=== PATIENT | female | born 1940 | race Caucasian/White ===

== ENCOUNTER 2017-03-31 09:25 | Inpatient (IN) | payer MEDICARE ==
[~2017-03-31] VITALS: Ht 162.6 cm; Wt 67.2 kg
[~2017-03-31 09:25] MED LIST: ALPR.5T PO; DILT180C PO; FLUO40CA PO; HYDR-3720 PO; RLX60T PO; WRF1T PO
[2017-03-31 12:00] VITALS: BP 110/71
[2017-03-31] MEDS ORDERED: FLUO40CA PO (14:11)
[2017-03-31] MEDS ORDERED: GABA-488 PO (14:11)
[2017-03-31] MEDS ORDERED: DILT180C54 PO (14:11)
[2017-03-31] MEDS ORDERED: ALPRAZolam 0.5 MG (XANAX) TAB PO PRN (14:15)
--- NOTE | 2017-03-31 14:22 | PM&R Post Admission Assessment ---
Post Admission Physician Asses The preadmission screen agrees with the post admission assessment that the patient is a good candidate for inpatient rehabilitation. The patient will have a comprehensive program of inpatient rehabilitation with a goal of maximizing level of functional independence prior to discharge home with SO. The patient will have PT/OT ninety minutes per day, each discipline, five days a week for gait, strengthening, conditioning, balance, ADLs, any patient/family/caregiver training as necessary. Speech therapy to do cognitive assessment and treat as indicated. Rehabilitation nursing to assist with bowel, bladder, skin, wound care, medication administration, pain management. Tutor to assist with discharge planning, community reentry. SCD's for DVT prophylaxis. She appears to be well motivated to participate in three hours of therapy a day. She should be able to tolerate three hours of therapy a day from a medical and surgical standpoint. She should benefit from the three hours of therapy a day. She has a reasonable discharge plan, reasonable discharge rehabilitation goals and a supportive family. She has various comorbidities that need to be closely monitored with medications and treatments adjusted on a daily basis as needed. These include: ongoing wound care A FIB Hypokalemia Barriers to discharge for this patient who had been independent prior to this are for her to be modified independent to supervision for ADLs and mobility skills prior to discharge home with SO, so as to lessen the burden of the caregivers. Risks for this patient include: 1. Fall 2. Fracture 3. DVT 4. Pulmonary embolism 5. Wound infection 6. Skin breakdown 7. Contractures 8. Poorly controlled pain 9. Urinary retention 10. UTI 11. Respiratory infection 12. Aspiration 13. recurrent A FIB Estimated Length of Stay: 17 days Prognosis: Rehab prognosis appears good for goal of discharge home with SO modified independent to supervision for ADLs and mobility skills. ARLEEN SIMON MD Mar 31, 2017 14:22
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
[2017-03-31] MEDS ORDERED: OMG1KC PO (14:48)
[2017-03-31] MEDS ORDERED: CALCIUM CARB/VIT D3 (14:48)
[2017-03-31] MEDS ORDERED: MULT-35 PO (14:48)
[2017-03-31] MEDS ORDERED: ALPR0.5T7 PO (14:53)
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
--- NOTE | 2017-03-31 15:56 | Physical Therapy Daily Note ---
PT Daily Note-Current Subjective Pt. agrees to Rx. States she is fatigued but happy to be in rehab. States she is worried about her open wounds etc. Pain Numeric Pain Scale: 4 Location: Posterior, Left Location Body Site: Chest (ribs) Pain Description: Inspirational Mental Status Patient Orientation: Normal For Age Attachments: Other-See Comments (back brace and wound vacc) Transfers Functional [place] Measure 0=Not Assessed/NA 4=Minimal Assistance 1=Total Assistance 5=Supervision or Setup 2=Maximal Assistance 6=Modified [place] 3=Moderate Assistance 7=Complete IndependenceIRFPAI Quality Coding Scale 6 Independent with activity with or without an assistive device 5 Patient requires set up or clean up by helper. Patient completes activity by themselves 4 Supervision or touching assist (CGA). [place] provide cues , steadying assist 3 The helper provides less than half the effort to complete the activity 2 The helper provides more than half the effort to complete the activity 1 Dependent. The helper does all the effort to complete an activity 7 Patient refused to complete or attempt activity 9 The patient did not perform the activity before the current illness or injury 88 Not attempted due to Medical conditions or safety concerns Transfers (B, C, W/C) (FIM): 4 Scootin Rollin Supine to/from Sit: 4 Sit to/from Stand: 5 needed min to CGA for LEs in to bed Weight Bearing Weight Bearing/Tolerated Weight Bearing/Tolerated Gait Training Does the Patient Walk?: Yes Gait (FIM): 5 Distance (FIM): 3=150 ft Gait Level of Assist: 5 Gait Persons Needed: 1 Gait Assistive Device: FWW low, fatigued, stopped standing break x2 Exercises Supine Ex: Ankle pumps, Quad Set, Rolling, Heel Slides, Hip abd/add Supine Reps: 15 NuStep Minutes: 20 NuStep Workload: 4 Treatments leg presses on Nustep x 12. Toileted for BM . Pt. several times cleansing herself after but requests assist to make sure she was throrough and for application of barrier cream.. Pt. managed pants up and down very slowly but did so indep. pt. stood at sink for handwashing SBA. Assessment Current Status: Good Progress Pain in ribs limits gait and function PT Short Term Goals Short Term Goals Time Frame: Apr 07, 2017 Transfers (B,C,W/C) (FIM): 5 Distance (FIM): 3=150 ft Gait Level of Assist: 5 Gait Assistive Device: FWW Wheelchair Distance: 150 Stairs (FIM): 4 # of Steps: 12 Stairs Level of Assist: 5 PT Long-Term Goals Long-Term Goals PT Interior Design Professor Goals Time Frame: Apr 21, 2017 Transfers (B,C,W/C) (FIM): 6 Sit to Lying (QC): 6 Lying-Sitting on Side/Bed(QC): 6 Sit to Stand (QC): 6 Rollin Roll Left to Right (QC): 6 Chair/Mdf-ry-Jrywt Xfer(QC): 6 Car Transfer (QC): 6 Does the Patient Walk: Yes Gait (FIM): 6 Gait distance (FIM): 3=150 ft Distance: 300 Walk 10 feet (QC): 6 Walk 10ft-Uneven Surface(QC): 6 Walk 50ft with 2 Turns (QC): 6 Walk 150 ft (QC): 6 Gait Level of Assist: 6 Gait Assistive Device: Cane Single Point Stairs (FIM): 6 # of Steps: 15 1 Step (curb) (QC): 6 4 Steps (QC): 6 12 Steps (QC): 6 Stairs Level Of Assist: 6 Picking up an Object (QC): 6 PT Plan Treatment/Plan Treatment Plan: Continue Plan of Care Treatment Plan: Bed Mobility, Education, Functional Activity [place], Functional Strength, Group Therapy, Gait, Safety, Therapeutic Exercise, Transfers Treatment Duration: Apr 21, 2017 Frequency: At least 5 of 7 days/Wk (IRF) Estimated Hrs Per Day: 1.5 hours per day Patient and/or Family Agrees t: Yes Safety Risks/Education Patient Education: Gait Training, Transfer Techniques, Correct Positioning, Disease Process, Safety Issues Teaching Recipient: Patient Teaching Methods: Demonstration, Discussion Response to Teaching: Verbalize Understanding, Return Demonstration, Reinforcement Needed sit to stand instruction for safety and efficiency using UEs to push etc. BSC placed over toilet Time/GCodes Time In: 1500 Time Out: 1550 Total Billed Treatment Time: 50 Total Billed Treatment 1,EX20m,FA30m G Codes Necessary: RUDY Andrews ANDROID ARCHITECT Mar 31, 2017 15:56
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
[2017-03-31] MEDS: oxyCODONE/APAP 5/325MG (PERCOCET 5) TABLET PO PRN (16:54)
[2017-03-31] MEDS: OMEGA 3 (FISH OIL) 1000 MG CAP PO SCH (16:54)
[2017-03-31 19:06] VITALS: BP 118/69
[2017-03-31] MEDS: GABAPENTIN 300 MG (NEURONTIN) CAP PO SCH (20:31)
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
[2017-03-31] MEDS ORDERED: LIDOCAINE 1% INJ 20 ML (XYLOCAINE) VIAL TOP SCH (22:45)
[2017-04-01 05:01] VITALS: BP 136/74
[2017-04-01] MEDS: OMEGA 3 (FISH OIL) 1000 MG CAP PO SCH ×2 (07:57→17:44)
[2017-04-01] MEDS: CALCIUM CARB + VIT D 600 MG (CALCARB + D) TAB PO SCH (07:57)
[2017-04-01] MEDS: MULTIVIT W/MINERALS TAB (THERAGRAN M) PO SCH (07:57)
[2017-04-01] MEDS: GABAPENTIN 300 MG (NEURONTIN) CAP PO SCH ×2 (08:02→20:01)
[2017-04-01] MEDS: FLUoxetine HCL 20 MG (PROzac) CAP PO SCH (08:02)
[2017-04-01] MEDS: DILTIAZEM 180 MG (CARDIZEM CD) CAP PO SCH (08:04)
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
--- NOTE | 2017-04-01 11:31 | Physical Therapy Daily Note ---
PT Daily Note-Current Subjective Pt denies pain while stationary. Pt does experience pain during transition. Pt does not rate pain. Pt agreeable and "happy to be mobile again". Mental Status Patient Orientation: Person, Place, Situation wound vacc Transfers Functional New Site Measure 0=Not Assessed/NA 4=Minimal Assistance 1=Total Assistance 5=Supervision or Setup 2=Maximal Assistance 6=Modified New Site 3=Moderate Assistance 7=Complete IndependenceIRFPAI Quality Coding Scale 6 Independent with activity with or without an assistive device 5 Patient requires set up or clean up by helper. Patient completes activity by themselves 4 Supervision or touching assist (CGA). [place] provide cues , steadying assist 3 The helper provides less than half the effort to complete the activity 2 The helper provides more than half the effort to complete the activity 1 Dependent. The helper does all the effort to complete an activity 7 Patient refused to complete or attempt activity 9 The patient did not perform the activity before the current illness or injury 88 Not attempted due to Medical conditions or safety concerns Weight Bearing Weight Bearing/Tolerated Weight Bearing/Tolerated Treatments Pt in bed, seen for LE strengthening in supine: AP, QS, GS, heel slide, hip abd , SAQ, x 20 each Pt transferred to EOB, mod (I). Donned lumbo/thoracic brace with assist. SPT bed->W/c, Pt practiced w/c mobility x 300ft. Pt then amb 300ft with FWW at slow steady speed with CGA. Pt back to room seated in w/c with call light and all needs met. Assessment Current Status: Good Progress Mobility slow but mod (I). Pt showing some difficulty with (R) LE advancement, requiring vc's to clear toe. Pt back to room resting in W/c with all needs met post therapy. PT Short Term Goals Short Term Goals Time Frame: Apr 07, 2017 Transfers (B,C,W/C) (FIM): 5 Distance (FIM): 3=150 ft Gait Level of Assist: 5 Gait Assistive Device: FWW Wheelchair Distance: 150 Stairs (FIM): 4 # of Steps: 12 Stairs Level of Assist: 5 PT Technology Analyst Goals Prison Goals PT Prison Goals Time Frame: Apr 21, 2017 Transfers (B,C,W/C) (FIM): 6 Sit to Lying (QC): 6 Lying-Sitting on Side/Bed(QC): 6 Sit to Stand (QC): 6 Rollin Roll Left to Right (QC): 6 Chair/Gea-pq-Zvshl Xfer(QC): 6 Car Transfer (QC): 6 Does the Patient Walk: Yes Gait (FIM): 6 Gait distance (FIM): 3=150 ft Distance: 300 Walk 10 feet (QC): 6 Walk 10ft-Uneven Surface(QC): 6 Walk 50ft with 2 Turns (QC): 6 Walk 150 ft (QC): 6 Gait Level of Assist: 6 Gait Assistive Device: Cane Single Point Stairs (FIM): 6 # of Steps: 15 1 Step (curb) (QC): 6 4 Steps (QC): 6 12 Steps (QC): 6 Stairs Level Of Assist: 6 Picking up an Object (QC): 6 PT Plan Treatment/Plan Treatment Plan: Continue Plan of Care Treatment Plan: Bed Mobility, Education, Functional Activity [place], Functional Strength, Group Therapy, Gait, Safety, Therapeutic Exercise, Transfers Treatment Duration: Apr 21, 2017 Frequency: At least 5 of 7 days/Wk (IRF) Estimated Hrs Per Day: 1.5 hours per day Patient and/or Family Agrees t: Yes Time/GCodes Time In: 1000 Time Out: 1100 Total Billed Treatment Time: 60 Total Billed Treatment 1, ther ex 30min, W/c mobility 15min, gait 15 min TOM KASPER CPTA Apr 01, 2017 11:31
--- NOTE | 2017-04-01 12:00 | Occupational Ther Daily Note ---
OT Current Status-Daily Note Subjective Pt in bed, agrees to treatment. Pt reports 7/10 abdominal and rib pain. Mental Status/Objective Functional [place] Measure 0=Not Assessed/NA 4=Minimal Assistance 1=Total Assistance 5=Supervision or Setup 2=Maximal Assistance 6=Modified [place] 3=Moderate Assistance 7=Complete [place] Attachments: Other-See Comments (wound vac) ADL-Treatment Pt declined sponge bath today, but would like to get dressed. Supine to sit with SBA using log rolling technique. Pt donned pullover shirt with SBA. Don lumbar brace with assist. Pt unable to reach feet for LE dressing secondary to back precautions. Pt instructed in use of adaptive equipment for LE dressing. Pt used ostomy care nurse to start underwear and pants over feet. Pt then able to stand with CGA for pant hike. Pt required assist to don shoes, states daughter will be bringing her some slip on shoes. Increased time for dressing tasks. Sit to stand with CGA. Gait to restroom with FWW and slow pace. Grooming tasks completed standing at sink. Pt brushed teeth, combed hair, and washed face with SBA. Pt requires occasional rest breaks during standing tasks secondary to fatigue. Pt returned to chair, assisted pt to order breakfast. Pt sitting in chair with needs met after session, spouse present. Functional [place] Measure 0=Not Assessed/NA 4=Minimal Assistance 1=Total Assistance 5=Supervision or Setup 2=Maximal Assistance 6=Modified [place] 3=Moderate Assistance 7=Complete IndependenceIRFPAI Quality Coding Scale 6 Independent with activity with or without an assistive device 5 Patient requires set up or clean up by helper. Patient completes activity by themselves 4 Supervision or touching assist (CGA). [place] provide cues , steadying assist 3 The helper provides less than half the effort to complete the activity 2 The helper provides more than half the effort to complete the activity 1 Dependent. The helper does all the effort to complete an activity 7 Patient refused to complete or attempt activity 9 The patient did not perform the activity before the current illness or injury 88 Not attempted due to Medical conditions or safety concerns Grooming (FIM): 5 Oral Hygiene (QC): 4 Upper Body (FIM): 4 Upper Body Dressing (QC): 4 Lower Body Dressing (FIM): 3 Lower Body Dressing (QC): 3 On/Off Footwear (QC): 3 Education OT Patient Education: Modified ADL techniques Teaching Recipient: Patient Teaching Methods: Discussion Response to Teaching: Verbalize Understanding OT Short Term Goals Short Term Goals Time Frame: Apr 07, 2017 Upper Body Dressing(FIM): 5 Lower Body Dressing(FIM): 4 Toileting(FIM): 5 Transfers (B,C,W/C) (FIM): 5 Additional Short Term Goals: 1-Demonstrate ADL Tasks, 2-Verbalize Understanding , 3-ImproveStrength/[place] 1=Demonstrate adherence to instructed precautions during ADL tasks. 2=Patient will verbalize/demonstrate understanding of assistive devices/ modifications for ADL. 3=Patient will improve strength/tolerance for activity to enable patient to perform ADL's. OT Care Home Goals Care Home Goals Time Frame: Apr 21, 2017 Eating (FIM): 6 Eating (QC): 6 Groomin Oral Hygiene (QC): 6 Bathing(FIM): 5 Shower/Bathe Self (QC): 5 Upper Body Dressing(FIM): 6 Upper Body Dressing (QC): 6 Lower Body Dressing(FIM): 6 Lower Body Dressing (QC): 6 On/Off Footwear (QC): 6 Toileting(FIM): 6 Toilet/Commode Transfer(FIM): 6 Toilet/Commode Transfer (QC): 6 Additional Goals: 1-Demonstrate ADL Tasks, 2-Verbalize Understanding, 3- ImproveStrength/[place] 1=Demonstrate adherence to instructed precautions during ADL tasks. 2=Patient will verbalize/demonstrate understanding of assistive devices/ modifications for ADL. 3=Patient will improve strength/tolerance for activity to enable patient to perform ADL's. OT Education/Plan Discharge Recommendations Plan/Recommendations: Continue POC Treatment Plan/Plan of Care Patient would benefit from OT for education, treatment and training to promote independence in ADL's, mobility, safety and/or upper extremity function for ADL' s. Plan of Care: ADL Retraining, Functional Mobility, Group Exercise/Act as Ind, UE Funct Exercise/Act Treatment Duration: Apr 21, 2017 Frequency: At least 5 of 7 days/Wk (IRF) Estimated Hrs Per Day: 1.5 hours per day Agreement: Yes Rehab Potential: Good Time/GCodes Start Time: 08:00 Stop Time: 09:00 Total Time Billed (hr/min): 60 Billed Treatment Time 1 visit, ADLx4(60minutes) JUSTIN GILL OT Apr 01, 2017 12:00
--- NOTE | 2017-04-01 13:10 | Therapy Group Daily Note ---
Therapy Daily Group Note Patient Education Topic Other List Below (handwashing) Exercises LE Seated Exercise, UE Exercise Other/Notes Pt transported via w/c to OT/PT group. OT/PT group consisted of introductions ( name and favorite thanksgiving food), socialization, education on handwashing, seated UE/LE exercises, and Thanksgiving Jeopardy. Pt introduced self appropriately and contributed to conversations. Pt was attentive in activities and was able to answer question. Pt was able to complete exercises well and demonstrated good AROM. Pt sat at sink to wash hands prior to lunch. Pt transported via w/c to [facility] to participate in thanksgiving lunch, family present. After group, pt sitting in w/c with call light/phone in reach. All needs met in room. Start Time: 11:30 Stop Time: 12:30 Total Billed Treatment Time: 60 Total Billed Treatment 1-GRP ITALIA PETERSON Apr 01, 2017 13:10
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
[2017-04-01] MEDS: oxyCODONE/APAP 5/325MG (PERCOCET 5) TABLET PO PRN ×2 (13:38→19:07)
[2017-04-01 18:24] VITALS: BP 126/70
[2017-04-02 05:00] VITALS: BP 131/69
[2017-04-02] MEDS: oxyCODONE/APAP 5/325MG (PERCOCET 5) TABLET PO PRN ×3 (05:01→20:23)
[2017-04-02] MEDS: OMEGA 3 (FISH OIL) 1000 MG CAP PO SCH ×2 (06:09→17:36)
[2017-04-02] MEDS: MULTIVIT W/MINERALS TAB (THERAGRAN M) PO SCH (06:10)
[2017-04-02] MEDS: CALCIUM CARB + VIT D 600 MG (CALCARB + D) TAB PO SCH (06:14)
[2017-04-02] MEDS: FLUoxetine HCL 20 MG (PROzac) CAP PO SCH (08:01)
[2017-04-02] MEDS: GABAPENTIN 300 MG (NEURONTIN) CAP PO SCH ×2 (08:01→21:23)
[2017-04-02] MEDS: DILTIAZEM 180 MG (CARDIZEM CD) CAP PO SCH (08:01)
--- NOTE | 2017-04-02 09:07 | Physical Therapy Daily Note ---
PT Daily Note-Current Subjective Pt. states she feels she is making progress every day and is anxious to have the wound vacc off. Pain Numeric Pain Scale: 0-No Pain Mental Status Patient Orientation: Normal For Age Attachments: Other-See Comments (wound vacc and Steward back brace) Transfers Functional [place] Measure 0=Not Assessed/NA 4=Minimal Assistance 1=Total Assistance 5=Supervision or Setup 2=Maximal Assistance 6=Modified [place] 3=Moderate Assistance 7=Complete IndependenceIRFPAI Quality Coding Scale 6 Independent with activity with or without an assistive device 5 Patient requires set up or clean up by helper. Patient completes activity by themselves 4 Supervision or touching assist (CGA). [place] provide cues , steadying assist 3 The helper provides less than half the effort to complete the activity 2 The helper provides more than half the effort to complete the activity 1 Dependent. The helper does all the effort to complete an activity 7 Patient refused to complete or attempt activity 9 The patient did not perform the activity before the current illness or injury 88 Not attempted due to Medical conditions or safety concerns Transfers (B, C, W/C) (FIM): 5 Scootin Rollin Supine to/from Sit: 5 Sit to/from Stand: 6 reviewed log roll etc Weight Bearing Weight Bearing/Tolerated Weight Bearing/Tolerated Gait Training Does the Patient Walk?: Yes Gait (FIM): 5 Distance (FIM): 3=150 ft (200x2) Gait Level of Assist: 5 Gait Persons Needed: 1 Gait Assistive Device: FWW assist mainly for wound vacc, slow, flexed posture Wheelchair Training Does the Pt Use a Wheelchair?: No Stair Training Stair Training: Handrails/: 2 handrails Stairs (FIM): 5 #of Steps: 4 Stairs: Pattern: Step to Level of Assist: 5 household exception Balance Special Test Comments unsafe Exercises Seated Therapy Exercises: Ankle pumps, Sit to stand, Long arc quads, Hip flexion Seated Reps: 12 NuStep Minutes: 8 NuStep Workload: 4 Assessment Current Status: Good Progress PT Short Term Goals Short Term Goals Time Frame: Apr 07, 2017 Transfers (B,C,W/C) (FIM): 5 Distance (FIM): 3=150 ft Gait Level of Assist: 5 Gait Assistive Device: FWW Wheelchair Distance: 150 Stairs (FIM): 4 # of Steps: 12 Stairs Level of Assist: 5 PT Halfway Goals Naval Engineer Goals PT Halfway Goals Time Frame: Apr 21, 2017 Transfers (B,C,W/C) (FIM): 6 Sit to Lying (QC): 6 Lying-Sitting on Side/Bed(QC): 6 Sit to Stand (QC): 6 Rollin Roll Left to Right (QC): 6 Chair/Ylc-ww-Hngak Xfer(QC): 6 Car Transfer (QC): 6 Does the Patient Walk: Yes Gait (FIM): 6 Gait distance (FIM): 3=150 ft Distance: 300 Walk 10 feet (QC): 6 Walk 10ft-Uneven Surface(QC): 6 Walk 50ft with 2 Turns (QC): 6 Walk 150 ft (QC): 6 Gait Level of Assist: 6 Gait Assistive Device: Cane Single Point Stairs (FIM): 6 # of Steps: 15 1 Step (curb) (QC): 6 4 Steps (QC): 6 12 Steps (QC): 6 Stairs Level Of Assist: 6 Picking up an Object (QC): 6 PT Plan Treatment/Plan Treatment Plan: Continue Plan of Care Treatment Plan: Bed Mobility, Education, Functional Activity [place], Functional Strength, Group Therapy, Gait, Safety, Therapeutic Exercise, Transfers Treatment Duration: Apr 21, 2017 Frequency: At least 5 of 7 days/Wk (IRF) Estimated Hrs Per Day: 1.5 hours per day Patient and/or Family Agrees t: Yes Safety Risks/Education Patient Education: Gait Training, Transfer Techniques, Steps Teaching Recipient: Patient Teaching Methods: Demonstration, Discussion Response to Teaching: Verbalize Understanding, Return Demonstration, Reinforcement Needed min assist to fabiana back brace Discharge Recommendations Plan 1,EX15m,FA25m,GT20m Time/GCodes Time In: 800 Time Out: 900 Total Billed Treatment Time: 60 Total Billed Treatment 1,EX15m,FA25m,GT20m G Codes Necessary: RUDY Andrews [employer]ED BROKER Apr 02, 2017 09:07
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
--- NOTE | 2017-04-02 11:14 | Physical Therapy Daily Note ---
PT Daily Note-Current Subjective No issues voiced on arrival. Transfers Functional [place] Measure 0=Not Assessed/NA 4=Minimal Assistance 1=Total Assistance 5=Supervision or Setup 2=Maximal Assistance 6=Modified [place] 3=Moderate Assistance 7=Complete IndependenceIRFPAI Quality Coding Scale 6 Independent with activity with or without an assistive device 5 Patient requires set up or clean up by helper. Patient completes activity by themselves 4 Supervision or touching assist (CGA). [place] provide cues , steadying assist 3 The helper provides less than half the effort to complete the activity 2 The helper provides more than half the effort to complete the activity 1 Dependent. The helper does all the effort to complete an activity 7 Patient refused to complete or attempt activity 9 The patient did not perform the activity before the current illness or injury 88 Not attempted due to Medical conditions or safety concerns Transfers (B, C, W/C) (FIM): 6 Sit to/from Stand: 6 Weight Bearing Weight Bearing/Tolerated Weight Bearing/Tolerated Gait Training Does the Patient Walk?: Yes Gait (FIM): 4 Distance (FIM): 3=150 ft Distance: 300ft Gait Level of Assist: 4 Gait Assistive Device: FWW Exercises Seated Therapy Exercises: LE Protocol Seated Reps: 20 NuStep Minutes: 7 NuStep Workload: 5 Assessment Current Status: Good Progress Pt had one LOB episode when making a (L) turn. Pt was aware that she was losing balance, but needed contact assist to remain standing. PT Short Term Goals Short Term Goals Time Frame: Apr 07, 2017 Transfers (B,C,W/C) (FIM): 5 Distance (FIM): 3=150 ft Gait Level of Assist: 5 Gait Assistive Device: FWW Wheelchair Distance: 150 Stairs (FIM): 4 # of Steps: 12 Stairs Level of Assist: 5 PT Administrative Office Specialist Goals Penitentiary Goals PT Penitentiary Goals Time Frame: Apr 21, 2017 Transfers (B,C,W/C) (FIM): 6 Sit to Lying (QC): 6 Lying-Sitting on Side/Bed(QC): 6 Sit to Stand (QC): 6 Rollin Roll Left to Right (QC): 6 Chair/Ihx-dx-Dlalj Xfer(QC): 6 Car Transfer (QC): 6 Does the Patient Walk: Yes Gait (FIM): 6 Gait distance (FIM): 3=150 ft Distance: 300 Walk 10 feet (QC): 6 Walk 10ft-Uneven Surface(QC): 6 Walk 50ft with 2 Turns (QC): 6 Walk 150 ft (QC): 6 Gait Level of Assist: 6 Gait Assistive Device: Cane Single Point Stairs (FIM): 6 # of Steps: 15 1 Step (curb) (QC): 6 4 Steps (QC): 6 12 Steps (QC): 6 Stairs Level Of Assist: 6 Picking up an Object (QC): 6 PT Plan Treatment/Plan Treatment Plan: Continue Plan of Care Treatment Plan: Bed Mobility, Education, Functional Activity [place], Functional Strength, Group Therapy, Gait, Safety, Therapeutic Exercise, Transfers Treatment Duration: Apr 21, 2017 Frequency: At least 5 of 7 days/Wk (IRF) Estimated Hrs Per Day: 1.5 hours per day Patient and/or Family Agrees t: Yes Time/GCodes Time In: 1036 Time Out: 1107 Total Billed Treatment Time: 31 Total Billed Treatment 1, gt 20, ex 11 VINNIE KOCH PT Apr 02, 2017 11:14
--- NOTE | 2017-04-02 12:41 | Occupational Ther Daily Note ---
OT Current Status-Daily Note Subjective Pt sitting in w/c, agrees to treatment. Pt reports 2/10 abdominal and rib pain. Mental Status/Objective Functional [place] Measure 0=Not Assessed/NA 4=Minimal Assistance 1=Total Assistance 5=Supervision or Setup 2=Maximal Assistance 6=Modified [place] 3=Moderate Assistance 7=Complete [place] Attachments: Other-See Comments (wound vac) ADL-Treatment Pt would like a sponge bath today. Pt able to bathe upper body with set up. Donned pullover shirt with set up. Pt requires assist to don LSO secondary to unable to manage velcro straps. Pt able to wash bilateral upper legs and kristina area. Stood with assist to wash buttocks. Pt used long handled sponge to wash lower legs and feet. Reviewed use of adaptive equipment for LE dressing. Pt used improvement leader to start underwear and pants over feet. Sit to stand with SBA for pant hike. Pt requires minimal assistance to pull pants up in the back. Don bilateral socks with set up using sock aid. Gait to restroom with FWW. Pt stood at sink to brush teeth and comb hair with SBA. Transfer to toilet with SBA using grab bars for safety. Pt requires assist for toileting hygiene after BM. Washed hands at sink with SBA. Pt transferred to w/c with SBA using FWW. Sitting in w/c with needs met after session. Functional [place] Measure 0=Not Assessed/NA 4=Minimal Assistance 1=Total Assistance 5=Supervision or Setup 2=Maximal Assistance 6=Modified [place] 3=Moderate Assistance 7=Complete IndependenceIRFPAI Quality Coding Scale 6 Independent with activity with or without an assistive device 5 Patient requires set up or clean up by helper. Patient completes activity by themselves 4 Supervision or touching assist (CGA). [place] provide cues , steadying assist 3 The helper provides less than half the effort to complete the activity 2 The helper provides more than half the effort to complete the activity 1 Dependent. The helper does all the effort to complete an activity 7 Patient refused to complete or attempt activity 9 The patient did not perform the activity before the current illness or injury 88 Not attempted due to Medical conditions or safety concerns Grooming (FIM): 5 Oral Hygiene (QC): 4 Bathing (FIM): 4 Shower/Bathe Self (QC): 3 Upper Body (FIM): 4 Lower Body Dressing (FIM): 4 Lower Body Dressing (QC): 3 On/Off Footwear (QC): 5 Toileting (FIM): 3 Toileting Hygiene (QC): 3 Toilet/Commode Transfer (FIM): 5 Education OT Patient Education: Modified ADL techniques Teaching Recipient: Patient Teaching Methods: Discussion Response to Teaching: Return Demonstration OT Short Term Goals Short Term Goals Time Frame: Apr 07, 2017 Upper Body Dressing(FIM): 5 Lower Body Dressing(FIM): 4 Toileting(FIM): 5 Transfers (B,C,W/C) (FIM): 5 Additional Short Term Goals: 1-Demonstrate ADL Tasks, 2-Verbalize Understanding , 3-ImproveStrength/[place] 1=Demonstrate adherence to instructed precautions during ADL tasks. 2=Patient will verbalize/demonstrate understanding of assistive devices/ modifications for ADL. 3=Patient will improve strength/tolerance for activity to enable patient to perform ADL's. OT Fpc Goals Business Objects Analyst Goals Time Frame: Apr 21, 2017 Eating (FIM): 6 Eating (QC): 6 Groomin Oral Hygiene (QC): 6 Bathing(FIM): 5 Shower/Bathe Self (QC): 5 Upper Body Dressing(FIM): 6 Upper Body Dressing (QC): 6 Lower Body Dressing(FIM): 6 Lower Body Dressing (QC): 6 On/Off Footwear (QC): 6 Toileting(FIM): 6 Toilet/Commode Transfer(FIM): 6 Toilet/Commode Transfer (QC): 6 Additional Goals: 1-Demonstrate ADL Tasks, 2-Verbalize Understanding, 3- ImproveStrength/[place] 1=Demonstrate adherence to instructed precautions during ADL tasks. 2=Patient will verbalize/demonstrate understanding of assistive devices/ modifications for ADL. 3=Patient will improve strength/tolerance for activity to enable patient to perform ADL's. OT Education/Plan Discharge Recommendations Plan/Recommendations: Continue POC Treatment Plan/Plan of Care Patient would benefit from OT for education, treatment and training to promote independence in ADL's, mobility, safety and/or upper extremity function for ADL' s. Plan of Care: ADL Retraining, Functional Mobility, Group Exercise/Act as Ind, UE Funct Exercise/Act Treatment Duration: Apr 21, 2017 Frequency: At least 5 of 7 days/Wk (IRF) Estimated Hrs Per Day: 1.5 hours per day Agreement: Yes Rehab Potential: Good Time/GCodes Start Time: 09:00 Stop Time: 10:00 Total Time Billed (hr/min): 60 Billed Treatment Time 1 visit, ADLx4(60minutes) JUSTIN GILL OT Apr 02, 2017 12:41
--- NOTE | 2017-04-02 14:58 | Occupational Ther Daily Note ---
OT Current Status-Daily Note Subjective Pt sitting in w/c, agrees to treatment. Mental Status/Objective Functional [place] Measure 0=Not Assessed/NA 4=Minimal Assistance 1=Total Assistance 5=Supervision or Setup 2=Maximal Assistance 6=Modified [place] 3=Moderate Assistance 7=Complete [place] Attachments: Other-See Comments (wound vac) ADL-Treatment Functional [place] Measure 0=Not Assessed/NA 4=Minimal Assistance 1=Total Assistance 5=Supervision or Setup 2=Maximal Assistance 6=Modified [place] 3=Moderate Assistance 7=Complete IndependenceIRFPAI Quality Coding Scale 6 Independent with activity with or without an assistive device 5 Patient requires set up or clean up by helper. Patient completes activity by themselves 4 Supervision or touching assist (CGA). [place] provide cues , steadying assist 3 The helper provides less than half the effort to complete the activity 2 The helper provides more than half the effort to complete the activity 1 Dependent. The helper does all the effort to complete an activity 7 Patient refused to complete or attempt activity 9 The patient did not perform the activity before the current illness or injury 88 Not attempted due to Medical conditions or safety concerns Other Treatment Pt sit to stand with supervision. Gait to therapy gym with FWW, slow pace. No LOB noted. Pt completed fine motor task with nuts and bolts to increase fine motor coordination/manipulation skills. Pt able to complete task with increased time. Pt completed tabletop peg activity with bilateral UE to increase UE activity tolerance and coordination. Pt returned to room and requested to return to bed. Pt doffed brace with minimal assistance. Sit to supine with minimal assistance and cues for log rolling. Pt reports increased pain in ribs and abdomen with removal of brace, requests pain medication. RN notified. Pt in bed with needs met after session. OT Short Term Goals Short Term Goals Time Frame: Apr 07, 2017 Upper Body Dressing(FIM): 5 Lower Body Dressing(FIM): 4 Toileting(FIM): 5 Transfers (B,C,W/C) (FIM): 5 Additional Short Term Goals: 1-Demonstrate ADL Tasks, 2-Verbalize Understanding , 3-ImproveStrength/[place] 1=Demonstrate adherence to instructed precautions during ADL tasks. 2=Patient will verbalize/demonstrate understanding of assistive devices/ modifications for ADL. 3=Patient will improve strength/tolerance for activity to enable patient to perform ADL's. OT Geometry Teacher Goals Geometry Teacher Goals Time Frame: Apr 21, 2017 Eating (FIM): 6 Eating (QC): 6 Groomin Oral Hygiene (QC): 6 Bathing(FIM): 5 Shower/Bathe Self (QC): 5 Upper Body Dressing(FIM): 6 Upper Body Dressing (QC): 6 Lower Body Dressing(FIM): 6 Lower Body Dressing (QC): 6 On/Off Footwear (QC): 6 Toileting(FIM): 6 Toilet/Commode Transfer(FIM): 6 Toilet/Commode Transfer (QC): 6 Additional Goals: 1-Demonstrate ADL Tasks, 2-Verbalize Understanding, 3- ImproveStrength/[place] 1=Demonstrate adherence to instructed precautions during ADL tasks. 2=Patient will verbalize/demonstrate understanding of assistive devices/ modifications for ADL. 3=Patient will improve strength/tolerance for activity to enable patient to perform ADL's. OT Education/Plan Discharge Recommendations Plan/Recommendations: Continue POC Treatment Plan/Plan of Care Patient would benefit from OT for education, treatment and training to promote independence in ADL's, mobility, safety and/or upper extremity function for ADL' s. Plan of Care: ADL Retraining, Functional Mobility, Group Exercise/Act as Ind, UE Funct Exercise/Act Treatment Duration: Apr 21, 2017 Frequency: At least 5 of 7 days/Wk (IRF) Estimated Hrs Per Day: 1.5 hours per day Agreement: Yes Rehab Potential: Good Time/GCodes Start Time: 13:30 Stop Time: 14:00 Total Time Billed (hr/min): 30 Billed Treatment Time 1 visit, FAx2(30minutes) JUSTIN GILL OT Apr 02, 2017 14:58
[2017-04-02 18:00] VITALS: BP 120/72
[2017-04-03] MEDS: oxyCODONE/APAP 5/325MG (PERCOCET 5) TABLET PO PRN ×2 (05:12→20:45)
[2017-04-03 05:17] VITALS: BP 137/68
[2017-04-03] MEDS: OMEGA 3 (FISH OIL) 1000 MG CAP PO SCH ×2 (06:07→17:06)
[2017-04-03] MEDS: CALCIUM CARB + VIT D 600 MG (CALCARB + D) TAB PO SCH (06:07)
[2017-04-03] MEDS: MULTIVIT W/MINERALS TAB (THERAGRAN M) PO SCH (06:07)
[2017-04-03] MEDS: GABAPENTIN 300 MG (NEURONTIN) CAP PO SCH ×2 (08:48→20:45)
[2017-04-03] MEDS: DILTIAZEM 180 MG (CARDIZEM CD) CAP PO SCH (08:48)
[2017-04-03] MEDS: FLUoxetine HCL 20 MG (PROzac) CAP PO SCH (08:48)
--- NOTE | 2017-04-03 12:19 | Physical Therapy Daily Note ---
PT Daily Note-Current Subjective Pt. ready for Rx. Feels like she has made good progress Pain Numeric Pain Scale: 3 Location: Left Location Body Site: Chest (ribs) Pain Description: Ache Mental Status Patient Orientation: Normal For Age Attachments: Other-See Comments (wound vacc) Transfers Functional [place] Measure 0=Not Assessed/NA 4=Minimal Assistance 1=Total Assistance 5=Supervision or Setup 2=Maximal Assistance 6=Modified [place] 3=Moderate Assistance 7=Complete IndependenceIRFPAI Quality Coding Scale 6 Independent with activity with or without an assistive device 5 Patient requires set up or clean up by helper. Patient completes activity by themselves 4 Supervision or touching assist (CGA). [place] provide cues , steadying assist 3 The helper provides less than half the effort to complete the activity 2 The helper provides more than half the effort to complete the activity 1 Dependent. The helper does all the effort to complete an activity 7 Patient refused to complete or attempt activity 9 The patient did not perform the activity before the current illness or injury 88 Not attempted due to Medical conditions or safety concerns Transfers (B, C, W/C) (FIM): 5 Scootin Rollin Supine to/from Sit: 5 Sit to/from Stand: 6 pain in ribs as well as discomfort of brace in sidelying and supine limit laying supine Weight Bearing Weight Bearing/Tolerated Weight Bearing/Tolerated Gait Training Does the Patient Walk?: Yes Gait (FIM): 5 Distance (FIM): 3=150 ft (x2) Gait Level of Assist: 5 Gait Persons Needed: 1 Gait Assistive Device: FWW Stair Training Stair Training: Handrails/: 2 handrails Stairs (FIM): 2 #of Steps: 4 Stairs: Pattern: Step to Level of Assist: 4 Exercises NuStep Minutes: 10 NuStep Workload: 10 Assessment Current Status: Good Progress less c/o pain, increased activity PT Short Term Goals Short Term Goals Time Frame: Apr 07, 2017 Transfers (B,C,W/C) (FIM): 5 Distance (FIM): 3=150 ft Gait Level of Assist: 5 Gait Assistive Device: FWW Wheelchair Distance: 150 Stairs (FIM): 4 # of Steps: 12 Stairs Level of Assist: 5 PT Intermediate Goals Intermediate Goals PT Intermediate Goals Time Frame: Apr 21, 2017 Transfers (B,C,W/C) (FIM): 6 Sit to Lying (QC): 6 Lying-Sitting on Side/Bed(QC): 6 Sit to Stand (QC): 6 Rollin Roll Left to Right (QC): 6 Chair/Igd-vp-Iozjf Xfer(QC): 6 Car Transfer (QC): 6 Does the Patient Walk: Yes Gait (FIM): 6 Gait distance (FIM): 3=150 ft Distance: 300 Walk 10 feet (QC): 6 Walk 10ft-Uneven Surface(QC): 6 Walk 50ft with 2 Turns (QC): 6 Walk 150 ft (QC): 6 Gait Level of Assist: 6 Gait Assistive Device: Cane Single Point Stairs (FIM): 6 # of Steps: 15 1 Step (curb) (QC): 6 4 Steps (QC): 6 12 Steps (QC): 6 Stairs Level Of Assist: 6 Picking up an Object (QC): 6 PT Plan Treatment/Plan Treatment Plan: Continue Plan of Care Treatment Plan: Bed Mobility, Education, Functional Activity [place], Functional Strength, Group Therapy, Gait, Safety, Therapeutic Exercise, Transfers Treatment Duration: Apr 21, 2017 Frequency: At least 5 of 7 days/Wk (IRF) Estimated Hrs Per Day: 1.5 hours per day Patient and/or Family Agrees t: Yes Safety Risks/Education Patient Education: Gait Training, Transfer Techniques, Steps Teaching Recipient: Patient Teaching Methods: Demonstration, Discussion Response to Teaching: Verbalize Understanding, Return Demonstration, Reinforcement Needed Time/GCodes Time In: 1035 Time Out: 1105 Total Billed Treatment Time: 30 Total Billed Treatment 1,FA20,EX10 G Codes Necessary: RUDY Andrews [employer] WIRELESS MANAGER Apr 03, 2017 12:19
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
[2017-04-03 18:12] VITALS: BP 122/70
[2017-04-04 06:00] VITALS: BP 119/61
[2017-04-04] MEDS: OMEGA 3 (FISH OIL) 1000 MG CAP PO SCH ×2 (06:18→16:52)
[2017-04-04] MEDS: CALCIUM CARB + VIT D 600 MG (CALCARB + D) TAB PO SCH (06:18)
[2017-04-04] MEDS: MULTIVIT W/MINERALS TAB (THERAGRAN M) PO SCH (06:18)
[2017-04-04] MEDS: DILTIAZEM 180 MG (CARDIZEM CD) CAP PO SCH (08:49)
[2017-04-04] MEDS: GABAPENTIN 300 MG (NEURONTIN) CAP PO SCH ×2 (08:49→21:02)
[2017-04-04] MEDS: FLUoxetine HCL 20 MG (PROzac) CAP PO SCH (08:49)
[2017-04-04 17:53] VITALS: BP 124/74
[2017-04-05 04:17] VITALS: BP 135/80
[2017-04-05] MEDS: OMEGA 3 (FISH OIL) 1000 MG CAP PO SCH ×2 (06:06→17:52)
[2017-04-05] MEDS: MULTIVIT W/MINERALS TAB (THERAGRAN M) PO SCH (06:06)
[2017-04-05] MEDS: CALCIUM CARB + VIT D 600 MG (CALCARB + D) TAB PO SCH (06:06)
--- NOTE | 2017-04-05 08:59 | Physical Therapy Daily Note ---
PT Daily Note-Current Subjective Patient in bed pre tx, agrees to PT, has to use the restroom. Patient states she doesn't really have pain but has pressure on her right side in ribs and discomfort in her bottom when she sits. Appearance Patient in wheelchair at bedside post tx with nurse call, phone, tray, all needs met. Mental Status Patient Orientation: Normal For Age wound vac, TLSO Transfers Functional [place] Measure 0=Not Assessed/NA 4=Minimal Assistance 1=Total Assistance 5=Supervision or Setup 2=Maximal Assistance 6=Modified [place] 3=Moderate Assistance 7=Complete IndependenceIRFPAI Quality Coding Scale 6 Independent with activity with or without an assistive device 5 Patient requires set up or clean up by helper. Patient completes activity by themselves 4 Supervision or touching assist (CGA). [place] provide cues , steadying assist 3 The helper provides less than half the effort to complete the activity 2 The helper provides more than half the effort to complete the activity 1 Dependent. The helper does all the effort to complete an activity 7 Patient refused to complete or attempt activity 9 The patient did not perform the activity before the current illness or injury 88 Not attempted due to Medical conditions or safety concerns Transfers (B, C, W/C) (FIM): 6 Scootin Rollin Supine to/from Sit: 6 Sit to/from Stand: 6 occasional cues for hand placement Weight Bearing Weight Bearing/Tolerated Weight Bearing/Tolerated Gait Training Gait (FIM): 5 Distance: 200', 150' Gait Level of Assist: 5 Gait Persons Needed: 1 Gait Assistive Device: FWW Stair Training Stair Training: Handrails/: 2 handrails Stairs (FIM): 2 #of Steps: 8 Stairs: Pattern: Step to Level of Assist: 5 Exercises NuStep Minutes: 15 NuStep Workload: 6 Treatments bed mobility and transfers, ambulation, functional strengthening, brace don/doff , patient was toileted once Assessment Current Status: Fair Progress improving endurance PT Short Term Goals Short Term Goals Time Frame: Apr 07, 2017 Transfers (B,C,W/C) (FIM): 5 Distance (FIM): 3=150 ft Gait Level of Assist: 5 Gait Assistive Device: FWW Wheelchair Distance: 150 Stairs (FIM): 4 # of Steps: 12 Stairs Level of Assist: 5 PT Residential Goals Residential Goals PT Residential Goals Time Frame: Apr 21, 2017 Transfers (B,C,W/C) (FIM): 6 Sit to Lying (QC): 6 Lying-Sitting on Side/Bed(QC): 6 Sit to Stand (QC): 6 Rollin Roll Left to Right (QC): 6 Chair/Pyb-ae-Bohrk Xfer(QC): 6 Car Transfer (QC): 6 Does the Patient Walk: Yes Gait (FIM): 6 Gait distance (FIM): 3=150 ft Distance: 300 Walk 10 feet (QC): 6 Walk 10ft-Uneven Surface(QC): 6 Walk 50ft with 2 Turns (QC): 6 Walk 150 ft (QC): 6 Gait Level of Assist: 6 Gait Assistive Device: Cane Single Point Stairs (FIM): 6 # of Steps: 15 1 Step (curb) (QC): 6 4 Steps (QC): 6 12 Steps (QC): 6 Stairs Level Of Assist: 6 Picking up an Object (QC): 6 PT Plan Problem List Problem List: Activity Tolerance, Functional Strength, Safety, Balance, Gait, Transfer Treatment/Plan Treatment Plan: Continue Plan of Care Treatment Plan: Bed Mobility, Education, Functional Activity [place], Functional Strength, Group Therapy, Gait, Safety, Therapeutic Exercise, Transfers Treatment Duration: Apr 21, 2017 Frequency: At least 5 of 7 days/Wk (IRF) Estimated Hrs Per Day: 1.5 hours per day Patient and/or Family Agrees t: Yes Safety Risks/Education Patient Education: Gait Training, Transfer Techniques, Steps, Correct Positioning, Reviewed Don/Doff Brace, Safety Issues Teaching Recipient: Patient Teaching Methods: Demonstration, Discussion Response to Teaching: Reinforcement Needed Time/GCodes Time In: 800 Time Out: 859 Total Billed Treatment Time: 59 Total Billed Treatment 1 visit EX 15' FA 15' GT 29' JYOTSNA GORMAN PT Apr 05, 2017 08:59
[2017-04-05] MEDS: DILTIAZEM 180 MG (CARDIZEM CD) CAP PO SCH (09:17)
[2017-04-05] MEDS: GABAPENTIN 300 MG (NEURONTIN) CAP PO SCH ×2 (09:17→20:23)
[2017-04-05] MEDS: FLUoxetine HCL 20 MG (PROzac) CAP PO SCH (09:17)
[2017-04-05] MEDS: oxyCODONE/APAP 5/325MG (PERCOCET 5) TABLET PO PRN ×2 (11:23→15:41)
--- NOTE | 2017-04-05 14:20 | Occupational Ther Daily Note ---
OT Current Status-Daily Note Subjective No pain reported. Appearance Pt. sitting up in chair. Agrees to treatment. Mental Status/Objective Patient Orientation: Person, Place, Time, Situation Functional [place] Measure 0=Not Assessed/NA 4=Minimal Assistance 1=Total Assistance 5=Supervision or Setup 2=Maximal Assistance 6=Modified [place] 3=Moderate Assistance 7=Complete [place] Pt. has wound vac. Wound care nurse states it is okay for pt. to shower with incision kept dry. ADL-Treatment Functional [place] Measure 0=Not Assessed/NA 4=Minimal Assistance 1=Total Assistance 5=Supervision or Setup 2=Maximal Assistance 6=Modified [place] 3=Moderate Assistance 7=Complete IndependenceIRFPAI Quality Coding Scale 6 Independent with activity with or without an assistive device 5 Patient requires set up or clean up by helper. Patient completes activity by themselves 4 Supervision or touching assist (CGA). [place] provide cues , steadying assist 3 The helper provides less than half the effort to complete the activity 2 The helper provides more than half the effort to complete the activity 1 Dependent. The helper does all the effort to complete an activity 7 Patient refused to complete or attempt activity 9 The patient did not perform the activity before the current illness or injury 88 Not attempted due to Medical conditions or safety concerns Grooming (FIM): 5 (SBA at sink in stance to brush hair.) Bathing (FIM): 5 (SBA in shower to wash all parts. Pt. able to keep back straight and posture upright with feet brought up to lap.) Shower/Bathe Self (QC): 4 Upper Body (FIM): 4 (Pt. is able to don shirt with SBA, and brace with min assist.) Upper Body Dressing (QC): 4 Lower Body Dressing (FIM): 5 (Pt. requires SBA to doff/don socks, underwear, pants.) Lower Body Dressing (QC): 4 On/Off Footwear (QC): 4 Toileting (FIM): 5 Toileting Hygiene (QC): 4 Transfers (B, C, W/C) (FIM): 5 Toilet/Commode Transfer (FIM): 5 Toilet Transfer (QC): 5 Shower Transfer(FIM): 4 Education OT Patient Education: Correct positioning, Instructions don/doff splint/brace, Modified ADL techniques, Progress toward Goal/Update tx plan, Purpose of tx/ functional activities, Reviewed precautions, Rehab process, Transfer techniques Teaching Recipient: Patient Teaching Methods: Demonstration, Discussion Response to Teaching: Verbalize Understanding, Return Demonstration OT Short Term Goals Short Term Goals Time Frame: Apr 07, 2017 Upper Body Dressing(FIM): 5 Lower Body Dressing(FIM): 4 Toileting(FIM): 5 Transfers (B,C,W/C) (FIM): 5 Additional Short Term Goals: 1-Demonstrate ADL Tasks, 2-Verbalize Understanding , 3-ImproveStrength/[place] 1=Demonstrate adherence to instructed precautions during ADL tasks. 2=Patient will verbalize/demonstrate understanding of assistive devices/ modifications for ADL. 3=Patient will improve strength/tolerance for activity to enable patient to perform ADL's. OT Nursing Home Goals Nursing Home Goals Time Frame: Apr 21, 2017 Eating (FIM): 6 Eating (QC): 6 Groomin Oral Hygiene (QC): 6 Bathing(FIM): 5 Shower/Bathe Self (QC): 5 Upper Body Dressing(FIM): 6 Upper Body Dressing (QC): 6 Lower Body Dressing(FIM): 6 Lower Body Dressing (QC): 6 On/Off Footwear (QC): 6 Toileting(FIM): 6 Toilet/Commode Transfer(FIM): 6 Toilet/Commode Transfer (QC): 6 Additional Goals: 1-Demonstrate ADL Tasks, 2-Verbalize Understanding, 3- ImproveStrength/[place] 1=Demonstrate adherence to instructed precautions during ADL tasks. 2=Patient will verbalize/demonstrate understanding of assistive devices/ modifications for ADL. 3=Patient will improve strength/tolerance for activity to enable patient to perform ADL's. OT Education/Plan Problem List/Assessment Assessment: Decreased Activ Tolerance, Decreased UE Strength, Impaired I ADL's , Impaired Self-Care Skills Discharge Recommendations Plan/Recommendations: Continue POC Therapy D/C Recommendations: Home w/ Family Support, Occupational Therapy Home Care Target Placement Home with spouse and home health OT. Treatment Plan/Plan of Care Treatment,Training & Education: Yes Patient would benefit from OT for education, treatment and training to promote independence in ADL's, mobility, safety and/or upper extremity function for ADL' s. Plan of Care: ADL Retraining, Functional Mobility, Group Exercise/Act as Ind, UE Funct Exercise/Act Treatment Duration: Apr 21, 2017 Frequency: At least 5 of 7 days/Wk (IRF) Estimated Hrs Per Day: 1.5 hours per day Agreement: Yes Rehab Potential: Good Time/GCodes Start Time: 09:00 Stop Time: 10:00 Total Time Billed (hr/min): 60 Billed Treatment Time 1, ADL x 4 ESTHER FRIEDMAN OT Apr 05, 2017 14:20
--- NOTE | 2017-04-05 14:26 | Occupational Ther Daily Note ---
OT Current Status-Daily Note Subjective Pt. reports that she is tired. Appearance Pt. is up in therapy gym after PT session. Mental Status/Objective Patient Orientation: Person, Place, Time, Situation Functional [place] Measure 0=Not Assessed/NA 4=Minimal Assistance 1=Total Assistance 5=Supervision or Setup 2=Maximal Assistance 6=Modified [place] 3=Moderate Assistance 7=Complete [place] wound vac ADL-Treatment Functional [place] Measure 0=Not Assessed/NA 4=Minimal Assistance 1=Total Assistance 5=Supervision or Setup 2=Maximal Assistance 6=Modified [place] 3=Moderate Assistance 7=Complete IndependenceIRFPAI Quality Coding Scale 6 Independent with activity with or without an assistive device 5 Patient requires set up or clean up by helper. Patient completes activity by themselves 4 Supervision or touching assist (CGA). [place] provide cues , steadying assist 3 The helper provides less than half the effort to complete the activity 2 The helper provides more than half the effort to complete the activity 1 Dependent. The helper does all the effort to complete an activity 7 Patient refused to complete or attempt activity 9 The patient did not perform the activity before the current illness or injury 88 Not attempted due to Medical conditions or safety concerns Transfers (B, C, W/C) (FIM): 4 (SBA to ambulate with walker with assist only for wound vac.) Other Treatment Pt. completed two sets on armbike at min resistance x 5 minutes each to increase overall endurance. Pt. tolerated minimal resistance and slow pace, with rest break in between each set. After each set, HR and 02 sats taken. Sats at 95% and HR at 89 and then 80. Pt. becomes SOA with exertion, but this is likely due to fx ribs and inability to take deep breath. Pt. tolerated treatment well with increased recovery time after last session. Ambulated back to room with SBA for walker and min assist for wound vac management. All needs met back in room up in chair. Education OT Patient Education: Correct positioning, Exercise program, Modified ADL techniques, Progress toward Goal/Update tx plan, Purpose of tx/functional activities, Reviewed precautions, Rehab process, Transfer techniques Teaching Recipient: Patient Teaching Methods: Demonstration, Discussion Response to Teaching: Verbalize Understanding, Return Demonstration OT Short Term Goals Short Term Goals Time Frame: Apr 07, 2017 Upper Body Dressing(FIM): 5 Lower Body Dressing(FIM): 4 Toileting(FIM): 5 Transfers (B,C,W/C) (FIM): 5 Additional Short Term Goals: 1-Demonstrate ADL Tasks, 2-Verbalize Understanding , 3-ImproveStrength/[place] 1=Demonstrate adherence to instructed precautions during ADL tasks. 2=Patient will verbalize/demonstrate understanding of assistive devices/ modifications for ADL. 3=Patient will improve strength/tolerance for activity to enable patient to perform ADL's. OT Care Home Goals Supervisor [employer] Goals Time Frame: Apr 21, 2017 Eating (FIM): 6 Eating (QC): 6 Groomin Oral Hygiene (QC): 6 Bathing(FIM): 5 Shower/Bathe Self (QC): 5 Upper Body Dressing(FIM): 6 Upper Body Dressing (QC): 6 Lower Body Dressing(FIM): 6 Lower Body Dressing (QC): 6 On/Off Footwear (QC): 6 Toileting(FIM): 6 Toilet/Commode Transfer(FIM): 6 Toilet/Commode Transfer (QC): 6 Additional Goals: 1-Demonstrate ADL Tasks, 2-Verbalize Understanding, 3- ImproveStrength/[place] 1=Demonstrate adherence to instructed precautions during ADL tasks. 2=Patient will verbalize/demonstrate understanding of assistive devices/ modifications for ADL. 3=Patient will improve strength/tolerance for activity to enable patient to perform ADL's. OT Education/Plan Problem List/Assessment Assessment: Decreased Activ Tolerance, Impaired I ADL's, Impaired Self-Care Skills Discharge Recommendations Plan/Recommendations: Continue POC Therapy D/C Recommendations: Home w/ Family Support, Occupational Therapy Home Care Treatment Plan/Plan of Care Treatment,Training & Education: Yes Patient would benefit from OT for education, treatment and training to promote independence in ADL's, mobility, safety and/or upper extremity function for ADL' s. Plan of Care: ADL Retraining, Functional Mobility, Group Exercise/Act as Ind, UE Funct Exercise/Act Treatment Duration: Apr 21, 2017 Frequency: At least 5 of 7 days/Wk (IRF) Estimated Hrs Per Day: 1.5 hours per day Agreement: Yes Rehab Potential: Good Time/GCodes Start Time: 13:30 Stop Time: 14:00 Total Time Billed (hr/min): 30 Billed Treatment Time 1, EX x 2 ESTHER FRIEDMAN OT Apr 05, 2017 14:26
--- NOTE | 2017-04-05 14:39 | Physical Therapy Daily Note ---
PT Daily Note-Current Subjective Agrees to PT. No complaints. Reports she is still very weak. Transfers Functional [place] Measure 0=Not Assessed/NA 4=Minimal Assistance 1=Total Assistance 5=Supervision or Setup 2=Maximal Assistance 6=Modified [place] 3=Moderate Assistance 7=Complete IndependenceIRFPAI Quality Coding Scale 6 Independent with activity with or without an assistive device 5 Patient requires set up or clean up by helper. Patient completes activity by themselves 4 Supervision or touching assist (CGA). [place] provide cues , steadying assist 3 The helper provides less than half the effort to complete the activity 2 The helper provides more than half the effort to complete the activity 1 Dependent. The helper does all the effort to complete an activity 7 Patient refused to complete or attempt activity 9 The patient did not perform the activity before the current illness or injury 88 Not attempted due to Medical conditions or safety concerns Supine to sit EOB with SBA, slow with transition and uses bedrail. Sit to stand with sBA all reps. Weight Bearing Weight Bearing/Tolerated Weight Bearing/Tolerated Gait Training Pt ambulated 150 ft x 3 with FWW with SBA; lumbar brace in place for upright activity. Exercises Standing: Hamstring curls, Heel/toe raises, Marching, Mini squats Standing Reps: 15 (to increase LE strength and functional activity tolerance in standing for functional mobility in her home. ) Assessment Current Status: Good Progress Pt making functional gains but continues to have strength and functional mobility deficits. Continues to benefit from skilled intervnetion to increase her skills prior to returning home. PT Short Term Goals Short Term Goals Time Frame: Apr 07, 2017 Transfers (B,C,W/C) (FIM): 5 (met) Distance (FIM): 3=150 ft Gait Level of Assist: 5 Gait Assistive Device: FWW Wheelchair Distance: 150 Stairs (FIM): 4 # of Steps: 12 Stairs Level of Assist: 5 PT Welder Plastic Goals Chcf Goals PT Chcf Goals Time Frame: Apr 21, 2017 Transfers (B,C,W/C) (FIM): 6 Sit to Lying (QC): 6 Lying-Sitting on Side/Bed(QC): 6 Sit to Stand (QC): 6 Rollin Roll Left to Right (QC): 6 Chair/Cvi-es-Ktann Xfer(QC): 6 Car Transfer (QC): 6 Does the Patient Walk: Yes Gait (FIM): 6 Gait distance (FIM): 3=150 ft Distance: 300 Walk 10 feet (QC): 6 Walk 10ft-Uneven Surface(QC): 6 Walk 50ft with 2 Turns (QC): 6 Walk 150 ft (QC): 6 Gait Level of Assist: 6 Gait Assistive Device: Cane Single Point Stairs (FIM): 6 # of Steps: 15 1 Step (curb) (QC): 6 4 Steps (QC): 6 12 Steps (QC): 6 Stairs Level Of Assist: 6 Picking up an Object (QC): 6 PT Plan Problem List Problem List: Activity Tolerance, Functional Strength, Safety, Balance, Gait, Transfer Treatment/Plan Treatment Plan: Continue Plan of Care Treatment Plan: Bed Mobility, Education, Functional Activity [place], Functional Strength, Group Therapy, Gait, Safety, Therapeutic Exercise, Transfers Treatment Duration: Apr 21, 2017 Frequency: At least 5 of 7 days/Wk (IRF) Estimated Hrs Per Day: 1.5 hours per day Patient and/or Family Agrees t: Yes Safety Risks/Education Patient Education: Safety Issues Teaching Recipient: Patient Teaching Methods: Discussion Response to Teaching: Reinforcement Needed Discharge Recommendations Therapy D/C Recommendations: Physical Therapy Home Care Time/GCodes Time In: 1258 Time Out: 1330 Total Billed Treatment Time: 32 Total Billed Treatment visit FA 17 EX 15 ITALIA RUTHERFORD PT Apr 05, 2017 14:39
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
[2017-04-05] MEDS: fentaNYL PATCH 25 MCG (DURAGESIC) TD SCH (17:52)
[2017-04-05 18:00] VITALS: BP 116/53
--- NOTE | 2017-04-05 20:45 | Wound Care Progress Note ---
Subjective Subjective Subjective/Events-last exam Pleasant 76 year old female with open surgical wound of midline abdomen, improving with NPWT. PFSH: No interval change. Review of Systems Date Seen by Provider: Apr 05, 2017 Time Seen by Provider: 12:45 General: No Chills Pulmonary: No Dyspnea Cardiovascular: No: Chest Pain Objective Exam Last Set of Vital Signs Vital Signs Date Time Temp Pulse Resp B/P (MAP) Pulse Ox O2 Delivery O2 Flow Rate FiO2 04/05/17 20:30 Room Air 04/05/17 18:00 98.2 62 18 116/53 96 Capillary Refill : I&O Intake and Output 04/06/17 00:00 Intake Total 1540 ml Balance 1540 ml Intake Oral 1540 ml # Voids 5 # Bowel Movements 5 General: Alert, No Acute Distress Lungs: Normal Air Movement Skin: Other (Midline abdomen -- 14.2 x 3.0 x 1.5 cm, 100% granulation, mod.s.s. drainage.) Assessment/Plan Assessment/Plan Assessment/Plan 1. Open surgical wound abdomen. 2. Midline abdomen wound, full thickness without exposed support structures. Plan: Continue NPWT. RANCHO MAURER MD Apr 05, 2017 20:45
[2017-04-06 05:21] VITALS: BP 131/74
[2017-04-06] MEDS: CALCIUM CARB + VIT D 600 MG (CALCARB + D) TAB PO SCH (06:06)
[2017-04-06] MEDS: MULTIVIT W/MINERALS TAB (THERAGRAN M) PO SCH (06:06)
[2017-04-06] MEDS: OMEGA 3 (FISH OIL) 1000 MG CAP PO SCH ×2 (06:06→17:07)
[2017-04-06] MEDS: DILTIAZEM 180 MG (CARDIZEM CD) CAP PO SCH (08:06)
[2017-04-06] MEDS: FLUoxetine HCL 20 MG (PROzac) CAP PO SCH (08:06)
[2017-04-06] MEDS: GABAPENTIN 300 MG (NEURONTIN) CAP PO SCH ×2 (08:06→20:06)
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
--- NOTE | 2017-04-06 09:33 | Physical Therapy Daily Note ---
PT Daily Note-Current Subjective Pt sitting in [facility] upon arrival. Pt agrees to PT. Pain Numeric Pain Scale: 3 Location Body Site: Abdomen Pain Description: Ache Mental Status Patient Orientation: Person, Place, Time, Situation Attachments: Other-See Comments (Back Brace & Wound Vac) Transfers Functional [place] Measure 0=Not Assessed/NA 4=Minimal Assistance 1=Total Assistance 5=Supervision or Setup 2=Maximal Assistance 6=Modified [place] 3=Moderate Assistance 7=Complete IndependenceIRFPAI Quality Coding Scale 6 Independent with activity with or without an assistive device 5 Patient requires set up or clean up by helper. Patient completes activity by themselves 4 Supervision or touching assist (CGA). [place] provide cues , steadying assist 3 The helper provides less than half the effort to complete the activity 2 The helper provides more than half the effort to complete the activity 1 Dependent. The helper does all the effort to complete an activity 7 Patient refused to complete or attempt activity 9 The patient did not perform the activity before the current illness or injury 88 Not attempted due to Medical conditions or safety concerns Scootin Sit to/from Stand: 5 Sit to Stand (QC): 5 Weight Bearing Weight Bearing/Tolerated Weight Bearing/Tolerated Gait Training Does the Patient Walk?: Yes Distance (FIM): 3=150 ft Distance: 200' Walk 10 feet (QC): 5 Walk 50 ft with 2 Turns(QC): 5 Walk 150 ft (QC): 5 Gait Level of Assist: 5 Gait Persons Needed: 1 Gait Assistive Device: FWW Pt has slow but steady gait, no LOB. Pt is limited by fatigue, pain & feeling SOB although O2 remains high. Exercises Seated Therapy Exercises: Ankle pumps, Long arc quads, Hip flexion, Kicking activity Seated Reps: 20 Treatments Pt transfers from sitting in [facility] to standing using FWW at SBA. Pt uses restroom before returning to [facility] to rest. Pt transfers to standing again and ambulates in hallway using FWW at close SBA. Pt rests in [facility] followed by Seated Ex. Pt then ambulates again before returning to room to rest in [facility] at end of tx with all needs met. Assessment Current Status: Good Progress Pt fatigues and reports pain in ribs/abdomen. Pt is getting stronger and is motivated to get better and discharge home. PT Short Term Goals Short Term Goals Time Frame: Apr 07, 2017 Transfers (B,C,W/C) (FIM): 5 (met) Distance (FIM): 3=150 ft Gait Level of Assist: 5 Gait Assistive Device: FWW Wheelchair Distance: 150 Stairs (FIM): 4 # of Steps: 12 Stairs Level of Assist: 5 PT Care Home Goals Psych Nurse Goals PT Psych Nurse Goals Time Frame: Apr 21, 2017 Transfers (B,C,W/C) (FIM): 6 Sit to Lying (QC): 6 Lying-Sitting on Side/Bed(QC): 6 Sit to Stand (QC): 6 Rollin Roll Left to Right (QC): 6 Chair/Jbk-mz-Btktp Xfer(QC): 6 Car Transfer (QC): 6 Does the Patient Walk: Yes Gait (FIM): 6 Gait distance (FIM): 3=150 ft Distance: 300 Walk 10 feet (QC): 6 Walk 10ft-Uneven Surface(QC): 6 Walk 50ft with 2 Turns (QC): 6 Walk 150 ft (QC): 6 Gait Level of Assist: 6 Gait Assistive Device: Cane Single Point Stairs (FIM): 6 # of Steps: 15 1 Step (curb) (QC): 6 4 Steps (QC): 6 12 Steps (QC): 6 Stairs Level Of Assist: 6 Picking up an Object (QC): 6 PT Plan Problem List Problem List: Activity Tolerance, Functional Strength, Safety, Gait Treatment/Plan Treatment Plan: Continue Plan of Care Treatment Plan: Bed Mobility, Education, Functional Activity [place], Functional Strength, Group Therapy, Gait, Safety, Therapeutic Exercise, Transfers Treatment Duration: Apr 21, 2017 Frequency: At least 5 of 7 days/Wk (IRF) Estimated Hrs Per Day: 1.5 hours per day Patient and/or Family Agrees t: Yes Safety Risks/Education Patient Education: Gait Training, Transfer Techniques, Correct Positioning, Disease Process, Safety Issues Teaching Recipient: Patient, Significant Other Teaching Methods: Discussion Response to Teaching: Verbalize Understanding Time/GCodes Time In: 825 Time Out: 925 Total Billed Treatment Time: 60 Total Billed Treatment 1, GT x2 (25m), FA (15m) & EX (20m) IMAN WHEELER EYEGLASS INSPECTOR Apr 06, 2017 09:32
--- NOTE | 2017-04-06 11:44 | Occupational Ther Daily Note ---
OT Current Status-Daily Note Subjective Pt sitting in w/c, agrees to treatment. Pt reports 2/10 pain in abdomen and ribs. Mental Status/Objective Functional [place] Measure 0=Not Assessed/NA 4=Minimal Assistance 1=Total Assistance 5=Supervision or Setup 2=Maximal Assistance 6=Modified [place] 3=Moderate Assistance 7=Complete [place] Attachments: Other-See Comments (wound vac, lumbar brace) ADL-Treatment Pt in restroom when therapist arrives. Pt sit to stand from toilet with supervision. Pt declined bathing today and states she has already changed clothes. Discussed home set up and available equipment. Pt states she has a walk in shower and shower chair. The bathroom has one grab bar. Pt states she also has a BSC, 4WW, and FWW. Pt states she would like to practice getting in/ out of bed from both sides. Pt is able to complete sit to supine with SBA on both sides. Pt able to complete supine to sit with SBA using log rolling technique on right side without use of bed rail. Pt unable to complete supine to sit without use of bed rail to left side. Pt able to doff/don lumbar brace with minimal assistance secondary to decreased strength and difficulty with velcro. Pt requires increased time for mobility and occasional rest breaks secondary to fatigue. Pt is able to doff/don slip on shoes without assistance while seated EOB. Functional [place] Measure 0=Not Assessed/NA 4=Minimal Assistance 1=Total Assistance 5=Supervision or Setup 2=Maximal Assistance 6=Modified [place] 3=Moderate Assistance 7=Complete IndependenceIRFPAI Quality Coding Scale 6 Independent with activity with or without an assistive device 5 Patient requires set up or clean up by helper. Patient completes activity by themselves 4 Supervision or touching assist (CGA). [place] provide cues , steadying assist 3 The helper provides less than half the effort to complete the activity 2 The helper provides more than half the effort to complete the activity 1 Dependent. The helper does all the effort to complete an activity 7 Patient refused to complete or attempt activity 9 The patient did not perform the activity before the current illness or injury 88 Not attempted due to Medical conditions or safety concerns Other Treatment Pt sit to stand with supervision. Gait to therapy gym with FWW. Pt completed 2 sets on arm bike x5 minutes each to increase overall strength needed for functional tasks. Pt able to complete task with minimal resistance and slow pace. Rest break taken between sets. Bilateral hand wraparound facilitator exercises x20 reps with blue therapy foam to increase wraparound facilitator strength for ADLs. Pt completed putty activity with bilateral hands to increase strength/manipulation. Pt able to remove small beads from putty with increased time. Pt completed tabletop peg activity with bilateral hands to increase activity tolerance and coordination. Pt requires occasional rest breaks throughout treatment. Pt returned to room, seated in w/c with needs met after session. OT Short Term Goals Short Term Goals Time Frame: Apr 07, 2017 Upper Body Dressing(FIM): 5 Lower Body Dressing(FIM): 4 Toileting(FIM): 5 Transfers (B,C,W/C) (FIM): 5 (met) Additional Short Term Goals: 1-Demonstrate ADL Tasks, 2-Verbalize Understanding , 3-ImproveStrength/[place] 1=Demonstrate adherence to instructed precautions during ADL tasks. 2=Patient will verbalize/demonstrate understanding of assistive devices/ modifications for ADL. 3=Patient will improve strength/tolerance for activity to enable patient to perform ADL's. OT Substitute Crossing Guard Goals Assisted Goals Time Frame: Apr 21, 2017 Eating (FIM): 6 Eating (QC): 6 Groomin Oral Hygiene (QC): 6 Bathing(FIM): 5 Shower/Bathe Self (QC): 5 Upper Body Dressing(FIM): 6 Upper Body Dressing (QC): 6 Lower Body Dressing(FIM): 6 Lower Body Dressing (QC): 6 On/Off Footwear (QC): 6 Toileting(FIM): 6 Toilet/Commode Transfer(FIM): 6 Toilet/Commode Transfer (QC): 6 Additional Goals: 1-Demonstrate ADL Tasks, 2-Verbalize Understanding, 3- ImproveStrength/[place] 1=Demonstrate adherence to instructed precautions during ADL tasks. 2=Patient will verbalize/demonstrate understanding of assistive devices/ modifications for ADL. 3=Patient will improve strength/tolerance for activity to enable patient to perform ADL's. OT Education/Plan Discharge Recommendations Plan/Recommendations: Continue POC Treatment Plan/Plan of Care Patient would benefit from OT for education, treatment and training to promote independence in ADL's, mobility, safety and/or upper extremity function for ADL' s. Plan of Care: ADL Retraining, Functional Mobility, Group Exercise/Act as Ind, UE Funct Exercise/Act Treatment Duration: Apr 21, 2017 Frequency: At least 5 of 7 days/Wk (IRF) Estimated Hrs Per Day: 1.5 hours per day Agreement: Yes Rehab Potential: Good Time/GCodes Start Time: 09:45 Stop Time: 11:15 Total Time Billed (hr/min): 90 Billed Treatment Time 1 visit, FAx3(45minutes), EXx3(45minutes) JUSTIN GILL OT Apr 06, 2017 11:43
--- NOTE | 2017-04-06 15:12 | Physical Therapy Daily Note ---
PT Daily Note-Current Subjective Pt laying Supine in bed upon arrival. Pt agrees to PT. Pain Numeric Pain Scale: 5-Moderate Pain Location Body Site: Side Pain Description: Ache Mental Status Patient Orientation: Person, Place, Time, Situation Attachments: Other-See Comments (Back Brace & Wound Vac) Transfers Functional [place] Measure 0=Not Assessed/NA 4=Minimal Assistance 1=Total Assistance 5=Supervision or [place] 2=Maximal Assistance 6=Modified [place] 3=Moderate Assistance 7=Complete IndependenceIRFPAI Quality Coding Scale 6 Independent with activity with or without an assistive device 5 Patient requires set up or clean up by helper. Patient completes activity by themselves 4 Supervision or touching assist (CGA). [place] provide cues , steadying assist 3 The helper provides less than half the effort to complete the activity 2 The helper provides more than half the effort to complete the activity 1 Dependent. The helper does all the effort to complete an activity 7 Patient refused to complete or attempt activity 9 The patient did not perform the activity before the current illness or injury 88 Not attempted due to Medical conditions or safety concerns Scootin Rollin Roll Left to Right (QC): 5 Supine to/from Sit: 5 Sit to/from Stand: 5 Sit to Stand (QC): 5 Weight Bearing Weight Bearing/Tolerated Weight Bearing/Tolerated Gait Training Does the Patient Walk?: Yes Distance (FIM): 3=150 ft Distance: 150' Walk 10 feet (QC): 5 Walk 50 ft with 2 Turns(QC): 5 Walk 150 ft (QC): 5 Gait Level of Assist: 5 Gait Persons Needed: 1 Gait Assistive Device: FWW Pt has slow but steady gait, no LOB. Wheelchair Training Does the Pt Use a Wheelchair?: No Stair Training Stair Training: Handrails/: 2 handrails #of Steps: 8 1 Step (curb) (QC): 5 4 Steps (QC): 5 Stairs: Pattern: Step to Level of Assist: 5 Exercises Seated Therapy Exercises: Ankle pumps, Long arc quads, Hip flexion, Kicking activity, Hip abd/add Seated Reps: 20 Treatments Pt transfers from Supine to EOB at SBA. Sp assists pt with donning back brace. Pt transfers from EOB to standing using FWW at [facility]. Pt ambulates in hallway using FWW at [facility]. Pt ambulates 2 sets of 4 stairs. Pt rests in chair before completing Seated Ex at EOB. Pt returns to room to rest at end of tx with all needs met. Assessment Current Status: Good Progress Pt fatigues, reports rib pain and feels SOB due to pain. PT Short Term Goals Short Term Goals Time Frame: Apr 07, 2017 Transfers (B,C,W/C) (FIM): 5 (met) Distance (FIM): 3=150 ft Gait Level of Assist: 5 Gait Assistive Device: FWW Wheelchair Distance: 150 Stairs (FIM): 4 # of Steps: 12 Stairs Level of Assist: 5 PT Small Equipment Operator Goals Small Equipment Operator Goals PT Custodial Goals Time Frame: Apr 21, 2017 Transfers (B,C,W/C) (FIM): 6 Sit to Lying (QC): 6 Lying-Sitting on Side/Bed(QC): 6 Sit to Stand (QC): 6 Rollin Roll Left to Right (QC): 6 Chair/Whg-wz-Gjhas Xfer(QC): 6 Car Transfer (QC): 6 Does the Patient Walk: Yes Gait (FIM): 6 Gait distance (FIM): 3=150 ft Distance: 300 Walk 10 feet (QC): 6 Walk 10ft-Uneven Surface(QC): 6 Walk 50ft with 2 Turns (QC): 6 Walk 150 ft (QC): 6 Gait Level of Assist: 6 Gait Assistive Device: Cane Single Point Stairs (FIM): 6 # of Steps: 15 1 Step (curb) (QC): 6 4 Steps (QC): 6 12 Steps (QC): 6 Stairs Level Of Assist: 6 Picking up an Object (QC): 6 PT Plan Problem List Problem List: Activity Tolerance, Functional Strength, Safety, Balance, Gait Treatment/Plan Treatment Plan: Continue Plan of Care Treatment Plan: Bed Mobility, Education, Functional Activity [place], Functional Strength, Group Therapy, Gait, Safety, Therapeutic Exercise, Transfers Treatment Duration: Apr 21, 2017 Frequency: At least 5 of 7 days/Wk (IRF) Estimated Hrs Per Day: 1.5 hours per day Patient and/or Family Agrees t: Yes Safety Risks/Education Patient Education: Gait Training, Transfer Techniques, Correct Positioning, Reviewed Don/Doff Brace, Safety Issues Teaching Recipient: Patient, Significant Other Teaching Methods: Discussion Response to Teaching: Verbalize Understanding Time/GCodes Time In: 1300 Time Out: 1330 Total Billed Treatment Time: 30 Total Billed Treatment 1, GT (15m) & EX (15m) IMAN WHEELER SHALLOT PACKER Apr 06, 2017 15:11
--- NOTE | 2017-04-06 16:46 | Diagnostic Imaging Report ---
INDICATION: Right knee pain. TECHNIQUE: AP, oblique, and lateral views of the right knee were obtained. COMPARISON: 02/09/2012. FINDINGS: The right knee prosthesis appears in good alignment. There is no sign of fracture or device loosening. There is no acute bony abnormality. IMPRESSION: Good alignment of the right knee prosthesis with no acute bony abnormality. Dictated by: Dictated on workstation # [id number]
[2017-04-06 18:49] VITALS: BP 134/63
[2017-04-07 06:00] VITALS: BP 133/70
[2017-04-07] MEDS: OMEGA 3 (FISH OIL) 1000 MG CAP PO SCH ×2 (06:16→16:41)
[2017-04-07] MEDS: CALCIUM CARB + VIT D 600 MG (CALCARB + D) TAB PO SCH (06:16)
[2017-04-07] MEDS: MULTIVIT W/MINERALS TAB (THERAGRAN M) PO SCH (06:16)
[2017-04-07] MEDS: GABAPENTIN 300 MG (NEURONTIN) CAP PO SCH ×2 (08:11→20:35)
[2017-04-07] MEDS: FLUoxetine HCL 20 MG (PROzac) CAP PO SCH (08:11)
[2017-04-07] MEDS: DILTIAZEM 180 MG (CARDIZEM CD) CAP PO SCH (08:11)
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
--- NOTE | 2017-04-07 14:14 | Physical Therapy Daily Note ---
PT Daily Note-Current Subjective Feeling well, progressing regularly Pain Numeric Pain Scale: 0-No Pain Mental Status Patient Orientation: Normal For Age Attachments: Other-See Comments ([place] and back brace) Transfers Functional [place] Measure 0=Not Assessed/NA 4=Minimal Assistance 1=Total Assistance 5=Supervision or Setup 2=Maximal Assistance 6=Modified [place] 3=Moderate Assistance 7=Complete IndependenceIRFPAI Quality Coding Scale 6 Independent with activity with or without an assistive device 5 Patient requires set up or clean up by helper. Patient completes activity by themselves 4 Supervision or touching assist (CGA). [place] provide cues , steadying assist 3 The helper provides less than half the effort to complete the activity 2 The helper provides more than half the effort to complete the activity 1 Dependent. The helper does all the effort to complete an activity 7 Patient refused to complete or attempt activity 9 The patient did not perform the activity before the current illness or injury 88 Not attempted due to Medical conditions or safety concerns All TRFs Mod I Weight Bearing Weight Bearing/Tolerated Weight Bearing/Tolerated Gait Training gait FWW 200 ft x 2 with emphasis on alignment and less weight bearing on FWW Exercises Standing: Hip Abduction, Hamstring curls, Heel/toe raises, Marching, Mini squats, Sit to Stand Standing Reps: 12 Assessment Current Status: Good Progress PT Short Term Goals Short Term Goals Time Frame: Apr 07, 2017 Transfers (B,C,W/C) (FIM): 5 (met) Distance (FIM): 3=150 ft Gait Level of Assist: 5 Gait Assistive Device: FWW Wheelchair Distance: 150 Stairs (FIM): 4 # of Steps: 12 Stairs Level of Assist: 5 PT Taxicab Coordinator Goals Fdc Goals PT Taxicab Coordinator Goals Time Frame: Apr 21, 2017 Transfers (B,C,W/C) (FIM): 6 Sit to Lying (QC): 6 Lying-Sitting on Side/Bed(QC): 6 Sit to Stand (QC): 6 Rollin Roll Left to Right (QC): 6 Chair/Ujc-vb-Vkiob Xfer(QC): 6 Car Transfer (QC): 6 Does the Patient Walk: Yes Gait (FIM): 6 Gait distance (FIM): 3=150 ft Distance: 300 Walk 10 feet (QC): 6 Walk 10ft-Uneven Surface(QC): 6 Walk 50ft with 2 Turns (QC): 6 Walk 150 ft (QC): 6 Gait Level of Assist: 6 Gait Assistive Device: Cane Single Point Stairs (FIM): 6 # of Steps: 15 1 Step (curb) (QC): 6 4 Steps (QC): 6 12 Steps (QC): 6 Stairs Level Of Assist: 6 Picking up an Object (QC): 6 PT Plan Treatment/Plan Treatment Plan: Continue Plan of Care Treatment Plan: Bed Mobility, Education, Functional Activity [place], Functional Strength, Group Therapy, Gait, Safety, Therapeutic Exercise, Transfers Treatment Duration: Apr 21, 2017 Frequency: At least 5 of 7 days/Wk (IRF) Estimated Hrs Per Day: 1.5 hours per day Patient and/or Family Agrees t: Yes Safety Risks/Education Patient Education: Gait Training, Transfer Techniques, Issued Written HEP Time/GCodes Time In: 1330 Time Out: 1400 Total Billed Treatment Time: 30 Total Billed Treatment 1,GT,EX G Codes Necessary: RUDY Andrews BOILER OPERATOR HELPER Apr 07, 2017 14:14
--- NOTE | 2017-04-07 14:33 | Occupational Ther Daily Note ---
OT Current Status-Daily Note Subjective Pt in bed, agrees to treatment. Mental Status/Objective Functional [place] Measure 0=Not Assessed/NA 4=Minimal Assistance 1=Total Assistance 5=Supervision or Setup 2=Maximal Assistance 6=Modified [place] 3=Moderate Assistance 7=Complete [place] Attachments: Other-See Comments (wound vac, lumbar brace) ADL-Treatment Functional [place] Measure 0=Not Assessed/NA 4=Minimal Assistance 1=Total Assistance 5=Supervision or Setup 2=Maximal Assistance 6=Modified [place] 3=Moderate Assistance 7=Complete IndependenceIRFPAI Quality Coding Scale 6 Independent with activity with or without an assistive device 5 Patient requires set up or clean up by helper. Patient completes activity by themselves 4 Supervision or touching assist (CGA). [place] provide cues , steadying assist 3 The helper provides less than half the effort to complete the activity 2 The helper provides more than half the effort to complete the activity 1 Dependent. The helper does all the effort to complete an activity 7 Patient refused to complete or attempt activity 9 The patient did not perform the activity before the current illness or injury 88 Not attempted due to Medical conditions or safety concerns Toileting (FIM): 3 Toileting Hygiene (QC): 3 Toilet/Commode Transfer (FIM): 5 Other Treatment Pt has already dressed this morning with assist from spouse. Pt declined other ADLs at this time. Supine to sit with SBA using bed rail. Pt donned lumbar brace with minimal assistance for velcro straps. Pt donned slip on shoes without assistance. Pt states she is currently unable to complete toileting hygiene secondary to back brace and precautions. Education provided regarding toileting aids. Pt states understanding, but states she doesn't feel it will work for her at this time. States spouse has been assisting her and will continue once discharged. Sit to stand with supervision. Gait to therapy gym with FWW, no LOB noted. Pt completed arm bike activity, 2 sets of 5 minutes to increase overall activity tolerance needed for functional task completion. Pt completed activity with minimal resistance and slow pace. Rest break taken between sets. Pt completed fine motor activity with nuts and bolts to increase activity tolerance and coordination skills. Pt able to complete task with increased time. Pt returned to room, requests to use restroom. Transfer to toilet with supervision. Pt able to manage clothing, but requires assist for toileting hygiene after BM. Pt standing in restroom with PT present after session. OT Short Term Goals Short Term Goals Time Frame: Apr 07, 2017 Upper Body Dressing(FIM): 5 Lower Body Dressing(FIM): 4 Toileting(FIM): 5 Transfers (B,C,W/C) (FIM): 5 (met) Additional Short Term Goals: 1-Demonstrate ADL Tasks, 2-Verbalize Understanding , 3-ImproveStrength/[place] 1=Demonstrate adherence to instructed precautions during ADL tasks. 2=Patient will verbalize/demonstrate understanding of assistive devices/ modifications for ADL. 3=Patient will improve strength/tolerance for activity to enable patient to perform ADL's. OT Iron Erector Goals Skilled Nursing Goals Time Frame: Apr 21, 2017 Eating (FIM): 6 Eating (QC): 6 Groomin Oral Hygiene (QC): 6 Bathing(FIM): 5 Shower/Bathe Self (QC): 5 Upper Body Dressing(FIM): 6 Upper Body Dressing (QC): 6 Lower Body Dressing(FIM): 6 Lower Body Dressing (QC): 6 On/Off Footwear (QC): 6 Toileting(FIM): 6 Toilet/Commode Transfer(FIM): 6 Toilet/Commode Transfer (QC): 6 Additional Goals: 1-Demonstrate ADL Tasks, 2-Verbalize Understanding, 3- ImproveStrength/[place] 1=Demonstrate adherence to instructed precautions during ADL tasks. 2=Patient will verbalize/demonstrate understanding of assistive devices/ modifications for ADL. 3=Patient will improve strength/tolerance for activity to enable patient to perform ADL's. OT Education/Plan Discharge Recommendations Plan/Recommendations: Continue POC Treatment Plan/Plan of Care Patient would benefit from OT for education, treatment and training to promote independence in ADL's, mobility, safety and/or upper extremity function for ADL' s. Plan of Care: ADL Retraining, Functional Mobility, Group Exercise/Act as Ind, UE Funct Exercise/Act Treatment Duration: Apr 21, 2017 Frequency: At least 5 of 7 days/Wk (IRF) Estimated Hrs Per Day: 1.5 hours per day Agreement: Yes Rehab Potential: Good Time/GCodes Start Time: 09:00 Stop Time: 10:00 Total Time Billed (hr/min): 60 Billed Treatment Time 1 visit, FAx2(30minutes), EXx2(30minutes) JUSTIN GILL OT Apr 07, 2017 14:33
--- NOTE | 2017-04-07 14:53 | Occupational Ther Daily Note ---
OT Current Status-Daily Note Subjective Pt sitting EOB, agrees to treatment. Mental Status/Objective Functional [place] Measure 0=Not Assessed/NA 4=Minimal Assistance 1=Total Assistance 5=Supervision or Setup 2=Maximal Assistance 6=Modified [place] 3=Moderate Assistance 7=Complete [place] ADL-Treatment Functional [place] Measure 0=Not Assessed/NA 4=Minimal Assistance 1=Total Assistance 5=Supervision or Setup 2=Maximal Assistance 6=Modified [place] 3=Moderate Assistance 7=Complete IndependenceIRFPAI Quality Coding Scale 6 Independent with activity with or without an assistive device 5 Patient requires set up or clean up by helper. Patient completes activity by themselves 4 Supervision or touching assist (CGA). [place] provide cues , steadying assist 3 The helper provides less than half the effort to complete the activity 2 The helper provides more than half the effort to complete the activity 1 Dependent. The helper does all the effort to complete an activity 7 Patient refused to complete or attempt activity 9 The patient did not perform the activity before the current illness or injury 88 Not attempted due to Medical conditions or safety concerns Other Treatment Pt sit to stand with supervision. Gait to therapy gym with FWW. Pt completed graded clothespin activity with bilateral hands to increase strength needed for ADL tasks. Pt requires increased time for right hand when compared to left. Pt completed grooved pegboard activity with bilateral hands to increase coordination/manipulation skills. Pt able to complete task without assistance. Pt returned to room, sitting EOB with needs met and spouse present after session. OT Short Term Goals Short Term Goals Time Frame: Apr 07, 2017 Upper Body Dressing(FIM): 5 Lower Body Dressing(FIM): 4 Toileting(FIM): 5 Transfers (B,C,W/C) (FIM): 5 (met) Additional Short Term Goals: 1-Demonstrate ADL Tasks, 2-Verbalize Understanding , 3-ImproveStrength/[place] 1=Demonstrate adherence to instructed precautions during ADL tasks. 2=Patient will verbalize/demonstrate understanding of assistive devices/ modifications for ADL. 3=Patient will improve strength/tolerance for activity to enable patient to perform ADL's. OT Molder Machine Tender Goals Molder Machine Tender Goals Time Frame: Apr 21, 2017 Eating (FIM): 6 Eating (QC): 6 Groomin Oral Hygiene (QC): 6 Bathing(FIM): 5 Shower/Bathe Self (QC): 5 Upper Body Dressing(FIM): 6 Upper Body Dressing (QC): 6 Lower Body Dressing(FIM): 6 Lower Body Dressing (QC): 6 On/Off Footwear (QC): 6 Toileting(FIM): 6 Toilet/Commode Transfer(FIM): 6 Toilet/Commode Transfer (QC): 6 Additional Goals: 1-Demonstrate ADL Tasks, 2-Verbalize Understanding, 3- ImproveStrength/[place] 1=Demonstrate adherence to instructed precautions during ADL tasks. 2=Patient will verbalize/demonstrate understanding of assistive devices/ modifications for ADL. 3=Patient will improve strength/tolerance for activity to enable patient to perform ADL's. OT Education/Plan Discharge Recommendations Plan/Recommendations: Continue POC Treatment Plan/Plan of Care Patient would benefit from OT for education, treatment and training to promote independence in ADL's, mobility, safety and/or upper extremity function for ADL' s. Plan of Care: ADL Retraining, Functional Mobility, Group Exercise/Act as Ind, UE Funct Exercise/Act Treatment Duration: Apr 21, 2017 Frequency: At least 5 of 7 days/Wk (IRF) Estimated Hrs Per Day: 1.5 hours per day Agreement: Yes Rehab Potential: Good Time/GCodes Start Time: 11:30 Stop Time: 12:00 Total Time Billed (hr/min): 30 Billed Treatment Time 1 visit, FAx2(30minutes) JUSTIN GILL OT Apr 07, 2017 14:53
[2017-04-07 18:00] VITALS: BP 128/60
[2017-04-08] MEDS: oxyCODONE/APAP 5/325MG (PERCOCET 5) TABLET PO PRN (01:10)
[2017-04-08 06:00] VITALS: BP 138/75
[2017-04-08] MEDS: OMEGA 3 (FISH OIL) 1000 MG CAP PO SCH ×2 (06:23→16:18)
[2017-04-08] MEDS: CALCIUM CARB + VIT D 600 MG (CALCARB + D) TAB PO SCH (06:23)
[2017-04-08] MEDS: MULTIVIT W/MINERALS TAB (THERAGRAN M) PO SCH (06:23)
[2017-04-08] MEDS: DILTIAZEM 180 MG (CARDIZEM CD) CAP PO SCH (08:20)
[2017-04-08] MEDS: FLUoxetine HCL 20 MG (PROzac) CAP PO SCH (08:20)
[2017-04-08] MEDS: GABAPENTIN 300 MG (NEURONTIN) CAP PO SCH ×2 (08:20→20:30)
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
--- NOTE | 2017-04-08 12:12 | Physical Therapy Daily Note ---
PT Daily Note-Current Subjective Patient is seated in a W/C upon PT entering the room. She states she has been making great progress in her time in inpatient rehab. Patient has a wound vac. She agrees to PT. Pain Numeric Pain Scale: 0-No Pain Location: No Pain Reported Appearance Patient appears in good health. She is left post tx in W/C. Mental Status Patient Orientation: Normal For Age Wound Vac Transfers Functional [place] Measure 0=Not Assessed/NA 4=Minimal Assistance 1=Total Assistance 5=Supervision or Setup 2=Maximal Assistance 6=Modified [place] 3=Moderate Assistance 7=Complete IndependenceIRFPAI Quality Coding Scale 6 Independent with activity with or without an assistive device 5 Patient requires set up or clean up by helper. Patient completes activity by themselves 4 Supervision or touching assist (CGA). [place] provide cues , steadying assist 3 The helper provides less than half the effort to complete the activity 2 The helper provides more than half the effort to complete the activity 1 Dependent. The helper does all the effort to complete an activity 7 Patient refused to complete or attempt activity 9 The patient did not perform the activity before the current illness or injury 88 Not attempted due to Medical conditions or safety concerns Transfers (B, C, W/C) (FIM): 5 Sit to/from Stand: 5 Multiple Sit to/from stand transfers were completed safely with SBA from PT. Weight Bearing Weight Bearing/Tolerated Weight Bearing/Tolerated Gait Training Gait (FIM): 5 Distance: >500' Gait Level of Assist: 5 Gait Persons Needed: 1 Gait Assistive Device: FWW Patient walks with safe reciprocal gait pattern in FWW. PT is SBA carrying wound vac. Stair Training Stair Training: Handrails/: 2 handrails Stairs (FIM): 5 #of Steps: 12 Stairs: Pattern: Reciprocal Level of Assist: 5 Patient ambulates safely ascending and descending stairs with SBA from PT. Exercises Standing: Hip Abduction, Hamstring curls, Heel/toe raises, Marching, Sit to Stand Standing Reps: 25 all exercises performed bilaterally NuStep Minutes: 16 (to improve muscular endurance) NuStep Workload: 1 Assessment Current Status: Good Progress Patient has great tolerance for all therapeutic interventions. Ambulation and therapeutic exercise are all performed safely on this date. PT will continue to progress interventions per her tolerance. PT Short Term Goals Short Term Goals Time Frame: Apr 07, 2017 Transfers (B,C,W/C) (FIM): 5 (met) Distance (FIM): 3=150 ft Gait Level of Assist: 5 Gait Assistive Device: FWW Wheelchair Distance: 150 Stairs (FIM): 4 # of Steps: 12 Stairs Level of Assist: 5 PT Honey Producer Goals Mcfp Goals PT Mcfp Goals Time Frame: Apr 21, 2017 Transfers (B,C,W/C) (FIM): 6 Sit to Lying (QC): 6 Lying-Sitting on Side/Bed(QC): 6 Sit to Stand (QC): 6 Rollin Roll Left to Right (QC): 6 Chair/Ibf-bw-Wjaoy Xfer(QC): 6 Car Transfer (QC): 6 Does the Patient Walk: Yes Gait (FIM): 6 Gait distance (FIM): 3=150 ft Distance: 300 Walk 10 feet (QC): 6 Walk 10ft-Uneven Surface(QC): 6 Walk 50ft with 2 Turns (QC): 6 Walk 150 ft (QC): 6 Gait Level of Assist: 6 Gait Assistive Device: Cane Single Point Stairs (FIM): 6 # of Steps: 15 1 Step (curb) (QC): 6 4 Steps (QC): 6 12 Steps (QC): 6 Stairs Level Of Assist: 6 Picking up an Object (QC): 6 PT Plan Problem List Problem List: Activity Tolerance, Functional Strength, Safety, Balance, Gait Treatment/Plan Treatment Plan: Continue Plan of Care Treatment Plan: Bed Mobility, Education, Functional Activity [place], Functional Strength, Group Therapy, Gait, Safety, Therapeutic Exercise, Transfers Treatment Duration: Apr 21, 2017 Frequency: At least 5 of 7 days/Wk (IRF) Estimated Hrs Per Day: 1.5 hours per day Patient and/or Family Agrees t: Yes Time/GCodes Time In: 1105 Time Out: 1205 Total Billed Treatment Time: 60 Total Billed Treatment 1 visit GT 15 min EX x 3 45 min TAYLOR WOMACK PT Apr 08, 2017 12:12
--- NOTE | 2017-04-08 12:43 | Occupational Ther Daily Note ---
OT Current Status-Daily Note Subjective No pain reported. Pt. states, "I feel like I am getting stronger." Appearance Pt. is in bed. Pt. has already dressed self. Declines showering. States that she will shower tomorrow when wound care comes to change wound dressing. Agrees to treatment. Mental Status/Objective Patient Orientation: Person, Place, Time, Situation Functional [place] Measure 0=Not Assessed/NA 4=Minimal Assistance 1=Total Assistance 5=Supervision or Setup 2=Maximal Assistance 6=Modified [place] 3=Moderate Assistance 7=Complete [place] Pt. has wound vac. ADL-Treatment Functional [place] Measure 0=Not Assessed/NA 4=Minimal Assistance 1=Total Assistance 5=Supervision or Setup 2=Maximal Assistance 6=Modified [place] 3=Moderate Assistance 7=Complete IndependenceIRFPAI Quality Coding Scale 6 Independent with activity with or without an assistive device 5 Patient requires set up or clean up by helper. Patient completes activity by themselves 4 Supervision or touching assist (CGA). [place] provide cues , steadying assist 3 The helper provides less than half the effort to complete the activity 2 The helper provides more than half the effort to complete the activity 1 Dependent. The helper does all the effort to complete an activity 7 Patient refused to complete or attempt activity 9 The patient did not perform the activity before the current illness or injury 88 Not attempted due to Medical conditions or safety concerns Transfers (B, C, W/C) (FIM): 5 (SBA with assist for wound vac.) Pt. ambulated to therapy gym. Completed 20 minutes on armbike at mod resistance. Pt. states, "I really need to get my arms stronger." Pt. then donned 1 lb. wrist weights and completed arm arc back and forth for increased overall strength. Pt. stated that she could use more weight and so OT replaced 1 lb. weights with 2 lb. weights. Pt. tolerated therapy pegs with 2 lb. weights on. Pt. states, "I can really feel this." Pt. states that she feels like she can "see the light at the end of the tunnel." Ambulated back to room. All needs met in room. Education OT Patient Education: Correct positioning, Exercise program, Progress toward Goal/Update tx plan, Purpose of tx/functional activities, Reviewed precautions, Rehab process, Transfer techniques Teaching Recipient: Patient Teaching Methods: Demonstration, Discussion Response to Teaching: Verbalize Understanding, Return Demonstration OT Short Term Goals Short Term Goals Time Frame: Apr 07, 2017 Upper Body Dressing(FIM): 5 Lower Body Dressing(FIM): 4 Toileting(FIM): 5 Transfers (B,C,W/C) (FIM): 5 (met) Additional Short Term Goals: 1-Demonstrate ADL Tasks, 2-Verbalize Understanding , 3-ImproveStrength/[place] 1=Demonstrate adherence to instructed precautions during ADL tasks. 2=Patient will verbalize/demonstrate understanding of assistive devices/ modifications for ADL. 3=Patient will improve strength/tolerance for activity to enable patient to perform ADL's. OT Outside Sales Professional Goals Outside Sales Professional Goals Time Frame: Apr 21, 2017 Eating (FIM): 6 Eating (QC): 6 Groomin Oral Hygiene (QC): 6 Bathing(FIM): 5 Shower/Bathe Self (QC): 5 Upper Body Dressing(FIM): 6 Upper Body Dressing (QC): 6 Lower Body Dressing(FIM): 6 Lower Body Dressing (QC): 6 On/Off Footwear (QC): 6 Toileting(FIM): 6 Toilet/Commode Transfer(FIM): 6 Toilet/Commode Transfer (QC): 6 Additional Goals: 1-Demonstrate ADL Tasks, 2-Verbalize Understanding, 3- ImproveStrength/[place] 1=Demonstrate adherence to instructed precautions during ADL tasks. 2=Patient will verbalize/demonstrate understanding of assistive devices/ modifications for ADL. 3=Patient will improve strength/tolerance for activity to enable patient to perform ADL's. OT Education/Plan Problem List/Assessment Assessment: Decreased Activ Tolerance, Impaired I ADL's Discharge Recommendations Plan/Recommendations: Continue POC Therapy D/C Recommendations: Home w/ Family Support, Occupational Therapy Home Care Treatment Plan/Plan of Care Treatment,Training & Education: Yes Patient would benefit from OT for education, treatment and training to promote independence in ADL's, mobility, safety and/or upper extremity function for ADL' s. Plan of Care: ADL Retraining, Functional Mobility, Group Exercise/Act as Ind, UE Funct Exercise/Act Treatment Duration: Apr 21, 2017 Frequency: At least 5 of 7 days/Wk (IRF) Estimated Hrs Per Day: 1.5 hours per day Agreement: Yes Rehab Potential: Good Time/GCodes Start Time: 10:00 Stop Time: 11:00 Total Time Billed (hr/min): 60 Billed Treatment Time 1, EX x 4 ESTHER FRIEDMAN OT Apr 08, 2017 12:43
--- NOTE | 2017-04-08 14:25 | Occupational Ther Daily Note ---
OT Current Status-Daily Note Subjective No pain reported. Appearance Pt. up in chair. Agrees to therapy. Mental Status/Objective Patient Orientation: Person, Place Functional [place] Measure 0=Not Assessed/NA 4=Minimal Assistance 1=Total Assistance 5=Supervision or Setup 2=Maximal Assistance 6=Modified [place] 3=Moderate Assistance 7=Complete [place] Wound vac. ADL-Treatment Functional [place] Measure 0=Not Assessed/NA 4=Minimal Assistance 1=Total Assistance 5=Supervision or Setup 2=Maximal Assistance 6=Modified [place] 3=Moderate Assistance 7=Complete IndependenceIRFPAI Quality Coding Scale 6 Independent with activity with or without an assistive device 5 Patient requires set up or clean up by helper. Patient completes activity by themselves 4 Supervision or touching assist (CGA). [place] provide cues , steadying assist 3 The helper provides less than half the effort to complete the activity 2 The helper provides more than half the effort to complete the activity 1 Dependent. The helper does all the effort to complete an activity 7 Patient refused to complete or attempt activity 9 The patient did not perform the activity before the current illness or injury 88 Not attempted due to Medical conditions or safety concerns Transfers (B, C, W/C) (FIM): 5 (SBA with wound vac.) Other Treatment Pt. ambulated to therapy gym with OT assisting with wound vac. Pt. completed armbike x 10 minutes, and then donned 2 lb. wrist weights and completed arm exercises to increase overall strength and endurance. Pt. tolerated treatment well. Pt. ambulated back to room with SBA. All needs met. Education OT Patient Education: Correct positioning, Exercise program, Progress toward Goal/Update tx plan, Purpose of tx/functional activities, Reviewed precautions, Rehab process, Transfer techniques Teaching Recipient: Patient Teaching Methods: Demonstration Response to Teaching: Verbalize Understanding, Return Demonstration OT Short Term Goals Short Term Goals Time Frame: Apr 07, 2017 Upper Body Dressing(FIM): 5 Lower Body Dressing(FIM): 4 Toileting(FIM): 5 Transfers (B,C,W/C) (FIM): 5 (met) Additional Short Term Goals: 1-Demonstrate ADL Tasks, 2-Verbalize Understanding , 3-ImproveStrength/[place] 1=Demonstrate adherence to instructed precautions during ADL tasks. 2=Patient will verbalize/demonstrate understanding of assistive devices/ modifications for ADL. 3=Patient will improve strength/tolerance for activity to enable patient to perform ADL's. OT Truck Striker Goals Snf Goals Time Frame: Apr 21, 2017 Eating (FIM): 6 Eating (QC): 6 Groomin Oral Hygiene (QC): 6 Bathing(FIM): 5 Shower/Bathe Self (QC): 5 Upper Body Dressing(FIM): 6 Upper Body Dressing (QC): 6 Lower Body Dressing(FIM): 6 Lower Body Dressing (QC): 6 On/Off Footwear (QC): 6 Toileting(FIM): 6 Toilet/Commode Transfer(FIM): 6 Toilet/Commode Transfer (QC): 6 Additional Goals: 1-Demonstrate ADL Tasks, 2-Verbalize Understanding, 3- ImproveStrength/[place] 1=Demonstrate adherence to instructed precautions during ADL tasks. 2=Patient will verbalize/demonstrate understanding of assistive devices/ modifications for ADL. 3=Patient will improve strength/tolerance for activity to enable patient to perform ADL's. OT Education/Plan Problem List/Assessment Assessment: Decreased Activ Tolerance, Impaired I ADL's Discharge Recommendations Plan/Recommendations: Continue POC Therapy D/C Recommendations: Home w/ Family Support Treatment Plan/Plan of Care Treatment,Training & Education: Yes Patient would benefit from OT for education, treatment and training to promote independence in ADL's, mobility, safety and/or upper extremity function for ADL' s. Plan of Care: ADL Retraining, Functional Mobility, Group Exercise/Act as Ind, UE Funct Exercise/Act Treatment Duration: Apr 21, 2017 Frequency: At least 5 of 7 days/Wk (IRF) Estimated Hrs Per Day: 1.5 hours per day Agreement: Yes Rehab Potential: Good Time/GCodes Start Time: 13:00 Stop Time: 13:30 Total Time Billed (hr/min): 30 Billed Treatment Time 1, EX x 2 ESTHER FRIEDMAN OT Apr 08, 2017 14:25
[2017-04-08] MEDS: FENTANYL PATCH REMOVAL TP SCH (15:15)
--- NOTE | 2017-04-08 15:32 | Physical Therapy Daily Note ---
PT Daily Note-Current Subjective Agreeable to PT. Reports she feels ready for discharge on Wednesday. Transfers Functional [place] Measure 0=Not Assessed/NA 4=Minimal Assistance 1=Total Assistance 5=Supervision or Setup 2=Maximal Assistance 6=Modified [place] 3=Moderate Assistance 7=Complete IndependenceIRFPAI Quality Coding Scale 6 Independent with activity with or without an assistive device 5 Patient requires set up or clean up by helper. Patient completes activity by themselves 4 Supervision or touching assist (CGA). [place] provide cues , steadying assist 3 The helper provides less than half the effort to complete the activity 2 The helper provides more than half the effort to complete the activity 1 Dependent. The helper does all the effort to complete an activity 7 Patient refused to complete or attempt activity 9 The patient did not perform the activity before the current illness or injury 88 Not attempted due to Medical conditions or safety concerns Weight Bearing Weight Bearing/Tolerated Weight Bearing/Tolerated Treatments Pt is SBA with sit to stand transfers with correct sequencing and hand placement. Pt ambulated 200 ft x 2 with FWW with back support with SBA. UP/ down 4 steps x 2 with handrails with SBA. Sit to stand x 5 for LE functional strengthening. Pt in room in chair post treatment. Assessment Current Status: Good Progress Pt is making good progress towards her established goals. Transfers and safety with gait are improving PT Short Term Goals Short Term Goals Time Frame: Apr 07, 2017 Transfers (B,C,W/C) (FIM): 5 (met) Distance (FIM): 3=150 ft Gait Level of Assist: 5 Gait Assistive Device: FWW Wheelchair Distance: 150 Stairs (FIM): 4 # of Steps: 12 Stairs Level of Assist: 5 PT Mcc Goals Supply Specialist Goals PT Mcc Goals Time Frame: Apr 21, 2017 Transfers (B,C,W/C) (FIM): 6 Sit to Lying (QC): 6 Lying-Sitting on Side/Bed(QC): 6 Sit to Stand (QC): 6 Rollin Roll Left to Right (QC): 6 Chair/Nra-ts-Iqigt Xfer(QC): 6 Car Transfer (QC): 6 Does the Patient Walk: Yes Gait (FIM): 6 Gait distance (FIM): 3=150 ft Distance: 300 Walk 10 feet (QC): 6 Walk 10ft-Uneven Surface(QC): 6 Walk 50ft with 2 Turns (QC): 6 Walk 150 ft (QC): 6 Gait Level of Assist: 6 Gait Assistive Device: Cane Single Point Stairs (FIM): 6 # of Steps: 15 1 Step (curb) (QC): 6 4 Steps (QC): 6 12 Steps (QC): 6 Stairs Level Of Assist: 6 Picking up an Object (QC): 6 PT Plan Problem List Problem List: Activity Tolerance, Functional Strength, Safety Treatment/Plan Treatment Plan: Continue Plan of Care Treatment Plan: Bed Mobility, Education, Functional Activity [place], Functional Strength, Group Therapy, Gait, Safety, Therapeutic Exercise, Transfers Treatment Duration: Apr 21, 2017 Frequency: At least 5 of 7 days/Wk (IRF) Estimated Hrs Per Day: 1.5 hours per day Patient and/or Family Agrees t: Yes Safety Risks/Education Patient Education: Safety Issues Teaching Recipient: Patient Teaching Methods: Discussion Response to Teaching: Verbalize Understanding Time/GCodes Time In: 1430 Time Out: 1302 Total Billed Treatment Time: 32 Total Billed Treatment visit FA 32 ITALIA RUTHERFORD PT Apr 08, 2017 15:32
[2017-04-08] MEDS: fentaNYL PATCH 25 MCG (DURAGESIC) TD SCH (16:16)
[2017-04-08] MEDS ORDERED: DILT180C54 PO (17:14)
[2017-04-08] MEDS ORDERED: FENT1PAT8 TD (17:14)
[2017-04-08] MEDS ORDERED: OXYC-471 PO (17:14)
[2017-04-08 17:53] VITALS: BP 109/70
[2017-04-09] MEDS: oxyCODONE/APAP 5/325MG (PERCOCET 5) TABLET PO PRN ×2 (00:08→23:58)
[2017-04-09 06:00] VITALS: BP 128/72
[2017-04-09] MEDS: CALCIUM CARB + VIT D 600 MG (CALCARB + D) TAB PO SCH (06:06)
[2017-04-09] MEDS: MULTIVIT W/MINERALS TAB (THERAGRAN M) PO SCH (06:06)
[2017-04-09] MEDS: OMEGA 3 (FISH OIL) 1000 MG CAP PO SCH ×2 (06:06→17:42)
[2017-04-09] MEDS: DILTIAZEM 180 MG (CARDIZEM CD) CAP PO SCH (08:37)
[2017-04-09] MEDS: GABAPENTIN 300 MG (NEURONTIN) CAP PO SCH ×2 (08:37→20:45)
[2017-04-09] MEDS: FLUoxetine HCL 20 MG (PROzac) CAP PO SCH (08:37)
--- NOTE | 2017-04-09 11:06 | Occupational Ther Daily Note ---
OT Current Status-Daily Note Subjective Pt sitting EOB, agrees to treatment. Pt reports 1/10 pain in tailbone and ribs. Mental Status/Objective Functional [place] Measure 0=Not Assessed/NA 4=Minimal Assistance 1=Total Assistance 5=Supervision or Setup 2=Maximal Assistance 6=Modified [place] 3=Moderate Assistance 7=Complete [place] Attachments: Other-See Comments (wound vac) ADL-Treatment Pt would like to shower today. Spouse gathers pt's clothing for her. Gait to restroom with FWW, transfer to toilet with SBA for wound vac. Pt able to manage clothing, but unable to complete thorough hygiene. Spouse assists pt with hygiene and pt states he will be assisting her at home until she can complete it herself. Pt doffed clothing without assistance. Transfer to walk in shower with SBA using grab bars for safety. Wound vac dressing was covered to prevent getting wet during shower. Wound nurse states she will be up to change after OT session. Pt able to wash/dry all areas with SBA while observing back precautions. Uses long handled sponge as needed. Don pullover shirt and LSO with set up. Pt donned underwear and pants with set up. Stands with good balance during pant hike. Pt able to don socks and shoes with set up while maintaining back precautions. Grooming tasks completed standing at sink. Pt brushed teeth and combed hair with modified independence. Functional [place] Measure 0=Not Assessed/NA 4=Minimal Assistance 1=Total Assistance 5=Supervision or Setup 2=Maximal Assistance 6=Modified [place] 3=Moderate Assistance 7=Complete IndependenceIRFPAI Quality Coding Scale 6 Independent with activity with or without an assistive device 5 Patient requires set up or clean up by helper. Patient completes activity by themselves 4 Supervision or touching assist (CGA). [place] provide cues , steadying assist 3 The helper provides less than half the effort to complete the activity 2 The helper provides more than half the effort to complete the activity 1 Dependent. The helper does all the effort to complete an activity 7 Patient refused to complete or attempt activity 9 The patient did not perform the activity before the current illness or injury 88 Not attempted due to Medical conditions or safety concerns Grooming (FIM): 6 Oral Hygiene (QC): 6 Bathing (FIM): 5 Shower/Bathe Self (QC): 5 Upper Body (FIM): 5 Upper Body Dressing (QC): 5 Lower Body Dressing (FIM): 5 Lower Body Dressing (QC): 5 On/Off Footwear (QC): 5 Toileting (FIM): 3 Toileting Hygiene (QC): 3 Toilet/Commode Transfer (FIM): 5 Shower Transfer(FIM): 5 Other Treatment Pt performed gait to therapy gym with FWW, no LOB noted. Pt completed arm bike activity x15 minutes to increase overall activity tolerance needed for functional tasks. Pt completed task with minimal resistance and steady pace. No rest breaks needed. Pt returned to room, in bed with needs met and wound care nurse present. OT Short Term Goals Short Term Goals Time Frame: Apr 07, 2017 Upper Body Dressing(FIM): 5 Lower Body Dressing(FIM): 4 Toileting(FIM): 5 Transfers (B,C,W/C) (FIM): 5 (met) Additional Short Term Goals: 1-Demonstrate ADL Tasks, 2-Verbalize Understanding , 3-ImproveStrength/[place] 1=Demonstrate adherence to instructed precautions during ADL tasks. 2=Patient will verbalize/demonstrate understanding of assistive devices/ modifications for ADL. 3=Patient will improve strength/tolerance for activity to enable patient to perform ADL's. OT Correction Goals Director Goals Time Frame: Apr 21, 2017 Eating (FIM): 6 Eating (QC): 6 Groomin Oral Hygiene (QC): 6 Bathing(FIM): 5 Shower/Bathe Self (QC): 5 Upper Body Dressing(FIM): 6 Upper Body Dressing (QC): 6 Lower Body Dressing(FIM): 6 Lower Body Dressing (QC): 6 On/Off Footwear (QC): 6 Toileting(FIM): 6 Toilet/Commode Transfer(FIM): 6 Toilet/Commode Transfer (QC): 6 Additional Goals: 1-Demonstrate ADL Tasks, 2-Verbalize Understanding, 3- ImproveStrength/[place] 1=Demonstrate adherence to instructed precautions during ADL tasks. 2=Patient will verbalize/demonstrate understanding of assistive devices/ modifications for ADL. 3=Patient will improve strength/tolerance for activity to enable patient to perform ADL's. OT Education/Plan Discharge Recommendations Plan/Recommendations: Continue POC Treatment Plan/Plan of Care Patient would benefit from OT for education, treatment and training to promote independence in ADL's, mobility, safety and/or upper extremity function for ADL' s. Plan of Care: ADL Retraining, Functional Mobility, Group Exercise/Act as Ind, UE Funct Exercise/Act Treatment Duration: Apr 21, 2017 Frequency: At least 5 of 7 days/Wk (IRF) Estimated Hrs Per Day: 1.5 hours per day Agreement: Yes Rehab Potential: Good Time/GCodes Start Time: 08:00 Stop Time: 09:00 Total Time Billed (hr/min): 60 Billed Treatment Time 1 visit, ADLx3(45minutes), EX(15minutes) JUSTIN GILL OT Apr 09, 2017 11:06
--- NOTE | 2017-04-09 11:15 | Physical Therapy Daily Note ---
PT Daily Note-Current Subjective Pt. agrees to Rx. Looking forward to going home. Feels stronger. Pain Numeric Pain Scale: 0-No Pain Mental Status Patient Orientation: Normal For Age Attachments: Other-See Comments ([place]) Transfers Functional [place] Measure 0=Not Assessed/NA 4=Minimal Assistance 1=Total Assistance 5=Supervision or Setup 2=Maximal Assistance 6=Modified [place] 3=Moderate Assistance 7=Complete IndependenceIRFPAI Quality Coding Scale 6 Independent with activity with or without an assistive device 5 Patient requires set up or clean up by helper. Patient completes activity by themselves 4 Supervision or touching assist (CGA). [place] provide cues , steadying assist 3 The helper provides less than half the effort to complete the activity 2 The helper provides more than half the effort to complete the activity 1 Dependent. The helper does all the effort to complete an activity 7 Patient refused to complete or attempt activity 9 The patient did not perform the activity before the current illness or injury 88 Not attempted due to Medical conditions or safety concerns Transfers (B, C, W/C) (FIM): 6 Scootin Rollin Roll Left to Right (QC): 6 Supine to/from Sit: 6 Sit to/from Stand: 6 Sit to Lying (QC): 6 Sit to Stand (QC): 6 Chair/Kyb-ku-Wbzgc Xfer(QC): 6 Bed to/from Chair: 6 Car Transfer (QC): 6 Weight Bearing Weight Bearing/Tolerated Weight Bearing/Tolerated Gait Training Does the Patient Walk?: Yes Gait (FIM): 6 Distance (FIM): 3=150 ft (250x2) Walk 10 feet (QC): 6 Walk 50 ft with 2 Turns(QC): 6 Walk 150 ft (QC): 6 Walking 10ft/uneven surface-QC: 6 Gait Level of Assist: 6 Gait Persons Needed: 0 (*pt. needs assist for wound vacc but not for gait) Gait Assistive Device: FWW ould be up ad minnie but requires assist for wound vacc Stair Training Stair Training: Handrails/: 2 handrails Stairs (FIM): 5 #of Steps: 12 1 Step (curb) (QC): 5 4 Steps (QC): 5 12 Steps (QC): 5 Stairs: Pattern: Reciprocal Level of Assist: 5 Balance Special Test Comments unsafe, contraindicated etc Exercises Supine Ex: Ankle pumps, Rolling Supine Reps: 12 Seated Therapy Exercises: Ankle pumps, Sit to stand, Long arc quads, Hip flexion, Hip abd/add Seated Reps: 12 Standing: Hip Abduction, Hamstring curls, Heel/toe raises, Marching, Mini squats Standing Reps: 12 NuStep Minutes: 10 NuStep Workload: 5 Assessment Current Status: Good Progress PT Short Term Goals Short Term Goals Time Frame: Apr 07, 2017 Transfers (B,C,W/C) (FIM): 5 (met) Distance (FIM): 3=150 ft Gait Level of Assist: 5 Gait Assistive Device: FWW Wheelchair Distance: 150 Stairs (FIM): 4 # of Steps: 12 Stairs Level of Assist: 5 PT Erector Operator Goals Erector Operator Goals PT Senior Care Goals Time Frame: Apr 21, 2017 Transfers (B,C,W/C) (FIM): 6 Sit to Lying (QC): 6 Lying-Sitting on Side/Bed(QC): 6 Sit to Stand (QC): 6 Rollin Roll Left to Right (QC): 6 Chair/Yuj-qb-Kgvzx Xfer(QC): 6 Car Transfer (QC): 6 Does the Patient Walk: Yes Gait (FIM): 6 Gait distance (FIM): 3=150 ft Distance: 300 Walk 10 feet (QC): 6 Walk 10ft-Uneven Surface(QC): 6 Walk 50ft with 2 Turns (QC): 6 Walk 150 ft (QC): 6 Gait Level of Assist: 6 Gait Assistive Device: Cane Single Point Stairs (FIM): 6 # of Steps: 15 1 Step (curb) (QC): 6 4 Steps (QC): 6 12 Steps (QC): 6 Stairs Level Of Assist: 6 Picking up an Object (QC): 6 PT Plan Treatment/Plan Treatment Plan: Continue Plan of Care Treatment Plan: Bed Mobility, Education, Functional Activity [place], Functional Strength, Group Therapy, Gait, Safety, Therapeutic Exercise, Transfers Treatment Duration: Apr 21, 2017 Frequency: At least 5 of 7 days/Wk (IRF) Estimated Hrs Per Day: 1.5 hours per day Patient and/or Family Agrees t: Yes Safety Risks/Education Patient Education: Gait Training, Transfer Techniques, Steps, Correct Positioning, Disease Process, Safety Issues Teaching Recipient: Patient Teaching Methods: Demonstration, Discussion Response to Teaching: Verbalize Understanding, Return Demonstration, Reinforcement Needed Time/GCodes Time In: 1000 Time Out: 1100 Total Billed Treatment Time: 60 Total Billed Treatment 1,EX25m,GT15m,FA20m G Codes Necessary: RUDY Andrews TRANSFER COORDINATOR Apr 09, 2017 11:14
--- NOTE | 2017-04-09 14:31 | Therapy Group Daily Note ---
Therapy Daily Group Note Patient Education Topic Home Safety, Energy Cons, Other List Below (relaxation techniques) Exercises LE Seated Exercise, UE Exercise, Other (relaxation and breathing exercises) Other/Notes Pt. attended group PT OT session. Pt. ambulated to from group with assist only for wound vacc. Pt. was friendly, participated in introduction and joined conversation re: how she likes to relax as well as her own methods and ways of saving energy at home in daily life. Pt. participated well in seated U&L extremity ther ex. In room after Rx in bed with morton at hand and needs met Start Time: 13:00 Stop Time: 14:10 Total Billed Treatment Time: 70 Total Billed Treatment 1,GRP RUDY HERNANDEZ SOLID WASTE FACILITY OPERATOR Apr 09, 2017 14:31
[2017-04-09 18:00] VITALS: BP 127/73
[2017-04-10 05:00] VITALS: BP 139/80
[2017-04-10] MEDS: OMEGA 3 (FISH OIL) 1000 MG CAP PO SCH ×2 (06:21→17:09)
[2017-04-10] MEDS: CALCIUM CARB + VIT D 600 MG (CALCARB + D) TAB PO SCH (06:22)
[2017-04-10] MEDS: MULTIVIT W/MINERALS TAB (THERAGRAN M) PO SCH (06:22)
[2017-04-10] MEDS: FLUoxetine HCL 20 MG (PROzac) CAP PO SCH (08:28)
[2017-04-10] MEDS: DILTIAZEM 180 MG (CARDIZEM CD) CAP PO SCH (08:28)
[2017-04-10] MEDS: GABAPENTIN 300 MG (NEURONTIN) CAP PO SCH ×2 (08:28→20:04)
--- NOTE | 2017-04-10 10:18 | Physical Therapy Daily Note ---
PT Daily Note-Current Subjective Pt agreeable and denies pain. Donned thoracic brace with min A Mental Status Patient Orientation: Person, Place, Situation Transfers Functional [place] Measure 0=Not Assessed/NA 4=Minimal Assistance 1=Total Assistance 5=Supervision or Setup 2=Maximal Assistance 6=Modified [place] 3=Moderate Assistance 7=Complete IndependenceIRFPAI Quality Coding Scale 6 Independent with activity with or without an assistive device 5 Patient requires set up or clean up by helper. Patient completes activity by themselves 4 Supervision or touching assist (CGA). [place] provide cues , steadying assist 3 The helper provides less than half the effort to complete the activity 2 The helper provides more than half the effort to complete the activity 1 Dependent. The helper does all the effort to complete an activity 7 Patient refused to complete or attempt activity 9 The patient did not perform the activity before the current illness or injury 88 Not attempted due to Medical conditions or safety concerns Weight Bearing Weight Bearing/Tolerated Weight Bearing/Tolerated Gait Training Gait Assistive Device: FWW Pt amb with FWW and F/u of wound vacc, CGA x 500ft Treatments Pt practiced steps of 12 with no issue, SBA. Pt used 2 handrails. Assessment Current Status: Good Progress Pt back to sitting EOB. Spouse present. Pt needs met. Pt making good progress toward goals. PT Short Term Goals Short Term Goals Time Frame: Apr 07, 2017 Transfers (B,C,W/C) (FIM): 5 (met) Distance (FIM): 3=150 ft Gait Level of Assist: 5 Gait Assistive Device: FWW Wheelchair Distance: 150 Stairs (FIM): 4 # of Steps: 12 Stairs Level of Assist: 5 PT Halfway Goals Halfway Goals PT Halfway Goals Time Frame: Apr 21, 2017 Transfers (B,C,W/C) (FIM): 6 Sit to Lying (QC): 6 Lying-Sitting on Side/Bed(QC): 6 Sit to Stand (QC): 6 Rollin Roll Left to Right (QC): 6 Chair/Dkn-gc-Wzrfh Xfer(QC): 6 Car Transfer (QC): 6 Does the Patient Walk: Yes Gait (FIM): 6 Gait distance (FIM): 3=150 ft Distance: 300 Walk 10 feet (QC): 6 Walk 10ft-Uneven Surface(QC): 6 Walk 50ft with 2 Turns (QC): 6 Walk 150 ft (QC): 6 Gait Level of Assist: 6 Gait Assistive Device: Cane Single Point Stairs (FIM): 6 # of Steps: 15 1 Step (curb) (QC): 6 4 Steps (QC): 6 12 Steps (QC): 6 Stairs Level Of Assist: 6 Picking up an Object (QC): 6 PT Plan Treatment/Plan Treatment Plan: Continue Plan of Care Treatment Plan: Bed Mobility, Education, Functional Activity [place], Functional Strength, Group Therapy, Gait, Safety, Therapeutic Exercise, Transfers Treatment Duration: Apr 21, 2017 Frequency: At least 5 of 7 days/Wk (IRF) Estimated Hrs Per Day: 1.5 hours per day Patient and/or Family Agrees t: Yes Time/GCodes Time In: 850 Time Out: 915 Total Billed Treatment Time: 25 Total Billed Treatment 1, gait 25 min TOM KASPER CPTA Apr 10, 2017 10:18
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
[2017-04-10 18:42] VITALS: BP 145/70
[2017-04-11 05:00] VITALS: BP 145/80
[2017-04-11] MEDS: OMEGA 3 (FISH OIL) 1000 MG CAP PO SCH ×2 (06:08→16:52)
[2017-04-11] MEDS: CALCIUM CARB + VIT D 600 MG (CALCARB + D) TAB PO SCH (06:08)
[2017-04-11] MEDS: MULTIVIT W/MINERALS TAB (THERAGRAN M) PO SCH (06:08)
[2017-04-11] MEDS: DILTIAZEM 180 MG (CARDIZEM CD) CAP PO SCH (07:57)
[2017-04-11] MEDS: GABAPENTIN 300 MG (NEURONTIN) CAP PO SCH ×2 (07:57→20:36)
[2017-04-11] MEDS: FLUoxetine HCL 20 MG (PROzac) CAP PO SCH (07:57)
[2017-04-11] MEDS: FENTANYL PATCH REMOVAL TP SCH (13:51)
[2017-04-11] MEDS: fentaNYL PATCH 25 MCG (DURAGESIC) TD SCH (16:52)
[2017-04-11 18:00] VITALS: BP 138/77
[2017-04-12] MEDS: oxyCODONE/APAP 5/325MG (PERCOCET 5) TABLET PO PRN (02:56)
[2017-04-12] MEDS: OMEGA 3 (FISH OIL) 1000 MG CAP PO SCH (05:52)
[2017-04-12] MEDS: CALCIUM CARB + VIT D 600 MG (CALCARB + D) TAB PO SCH (05:52)
[2017-04-12] MEDS: MULTIVIT W/MINERALS TAB (THERAGRAN M) PO SCH (05:52)
[2017-04-12 05:53] VITALS: BP 146/78
[2017-04-12] MEDS: GABAPENTIN 300 MG (NEURONTIN) CAP PO SCH (08:25)
[2017-04-12] MEDS: DILTIAZEM 180 MG (CARDIZEM CD) CAP PO SCH (08:25)
[2017-04-12] MEDS: FLUoxetine HCL 20 MG (PROzac) CAP PO SCH (08:25)
--- NOTE | 2017-04-12 10:51 | Physical Therapy Daily Note ---
PT Daily Note-Current Subjective Pt. just had wound vacc converted to smaller carry along home wound vacc. Pt. feels she will get along nicely with this. Agrees to rx. No c/o pain this date Pain Numeric Pain Scale: 0-No Pain Mental Status Patient Orientation: Normal For Age Attachments: Other-See Comments (portable [place] on shoulder, donjuan [place] brace min asssit of ) Transfers Functional [place] Measure 0=Not Assessed/NA 4=Minimal Assistance 1=Total Assistance 5=Supervision or Setup 2=Maximal Assistance 6=Modified [place] 3=Moderate Assistance 7=Complete IndependenceIRFPAI Quality Coding Scale 6 Independent with activity with or without an assistive device 5 Patient requires set up or clean up by helper. Patient completes activity by themselves 4 Supervision or touching assist (CGA). [place] provide cues , steadying assist 3 The helper provides less than half the effort to complete the activity 2 The helper provides more than half the effort to complete the activity 1 Dependent. The helper does all the effort to complete an activity 7 Patient refused to complete or attempt activity 9 The patient did not perform the activity before the current illness or injury 88 Not attempted due to Medical conditions or safety concerns Transfers (B, C, W/C) (FIM): 6 Scootin Rollin Roll Left to Right (QC): 6 Supine to/from Sit: 6 Sit to/from Stand: 6 Sit to Lying (QC): 6 Sit to Stand (QC): 6 Chair/Ayv-tr-Ooxiz Xfer(QC): 6 Bed to/from Chair: 6 Car Transfer (QC): 6 Weight Bearing Weight Bearing/Tolerated Weight Bearing/Tolerated Gait Training Does the Patient Walk?: Yes Gait (FIM): 6 Distance (FIM): 3=150 ft (175x2) Walk 10 feet (QC): 6 Walk 50 ft with 2 Turns(QC): 6 Walk 150 ft (QC): 6 Walking 10ft/uneven surface-QC: 6 Gait Level of Assist: 6 Gait Persons Needed: 6 Gait Assistive Device: FWW Stair Training Stair Training: Handrails/: 2 handrails Stairs (FIM): 6 #of Steps: 12 1 Step (curb) (QC): 6 4 Steps (QC): 6 12 Steps (QC): 6 Stairs: Pattern: Reciprocal Level of Assist: 6 Balance Special Test Comments unsafe, contraindicated to pickle maker object Assessment Current Status: Excellent Progress meets goals, good support from PT Short Term Goals Short Term Goals Time Frame: Apr 07, 2017 Transfers (B,C,W/C) (FIM): 5 (met) Distance (FIM): 3=150 ft Gait Level of Assist: 5 Gait Assistive Device: FWW Wheelchair Distance: 150 Stairs (FIM): 4 # of Steps: 12 Stairs Level of Assist: 5 PT Lehr Stripper Goals Lehr Stripper Goals PT Lehr Stripper Goals Time Frame: Apr 21, 2017 Transfers (B,C,W/C) (FIM): 6 Sit to Lying (QC): 6 Lying-Sitting on Side/Bed(QC): 6 Sit to Stand (QC): 6 Rollin Roll Left to Right (QC): 6 Chair/Uhr-ch-Qjumy Xfer(QC): 6 Car Transfer (QC): 6 Does the Patient Walk: Yes Gait (FIM): 6 Gait distance (FIM): 3=150 ft Distance: 300 Walk 10 feet (QC): 6 Walk 10ft-Uneven Surface(QC): 6 Walk 50ft with 2 Turns (QC): 6 Walk 150 ft (QC): 6 Gait Level of Assist: 6 Gait Assistive Device: Cane Single Point Stairs (FIM): 6 # of Steps: 15 1 Step (curb) (QC): 6 4 Steps (QC): 6 12 Steps (QC): 6 Stairs Level Of Assist: 6 Picking up an Object (QC): 6 PT Plan Treatment/Plan Treatment Plan: Discontinue PT, goals met Treatment Plan: Bed Mobility, Education, Functional Activity [place], Functional Strength, Group Therapy, Gait, Safety, Therapeutic Exercise, Transfers Treatment Duration: Apr 21, 2017 Frequency: At least 5 of 7 days/Wk (IRF) Estimated Hrs Per Day: 1.5 hours per day Patient and/or Family Agrees t: Yes Safety Risks/Education Patient Education: Gait Training, Transfer Techniques, Steps, Reviewed Precautions, Correct Positioning, Reviewed Don/Doff Brace, Safety Issues Teaching Recipient: Patient, Family, Significant Other Teaching Methods: Demonstration, Discussion Response to Teaching: Verbalize Understanding, Return Demonstration Time/GCodes Time In: 1025 Time Out: 1040 Total Billed Treatment Time: 15 Total Billed Treatment 1,FA15m G Codes Necessary: RUDY Andrews STEAM SHOVELMAN Apr 12, 2017 10:51
--- NOTE | 2017-04-12 13:03 | Occupational Ther Daily Note ---
OT Current Status-Daily Note Subjective No pain reported. Pt. states that she is excited to go home. Appearance Pt. is in bed. Agrees to shower. Mental Status/Objective Patient Orientation: Person, Place, Time, Situation Functional [place] Measure 0=Not Assessed/NA 4=Minimal Assistance 1=Total Assistance 5=Supervision or Setup 2=Maximal Assistance 6=Modified [place] 3=Moderate Assistance 7=Complete [place] Pt. has wound vac on abdominal area. This is covered during shower to keep dry. ADL-Treatment Functional [place] Measure 0=Not Assessed/NA 4=Minimal Assistance 1=Total Assistance 5=Supervision or Setup 2=Maximal Assistance 6=Modified [place] 3=Moderate Assistance 7=Complete IndependenceIRFPAI Quality Coding Scale 6 Independent with activity with or without an assistive device 5 Patient requires set up or clean up by helper. Patient completes activity by themselves 4 Supervision or touching assist (CGA). [place] provide cues , steadying assist 3 The helper provides less than half the effort to complete the activity 2 The helper provides more than half the effort to complete the activity 1 Dependent. The helper does all the effort to complete an activity 7 Patient refused to complete or attempt activity 9 The patient did not perform the activity before the current illness or injury 88 Not attempted due to Medical conditions or safety concerns Eating (FIM): 6 Eating (QC): 6 Grooming (FIM): 6 Oral Hygiene (QC): 6 Bathing (FIM): 6 Shower/Bathe Self (QC): 6 Upper Body (FIM): 6 Upper Body Dressing (QC): 6 Lower Body Dressing (FIM): 6 Lower Body Dressing (QC): 6 On/Off Footwear (QC): 6 Toileting (FIM): 6 Toileting Hygiene (QC): 6 Transfers (B, C, W/C) (FIM): 6 Toilet/Commode Transfer (FIM): 6 Toilet Transfer (QC): 6 Shower Transfer(FIM): 6 Other Treatment Pt. agreed to shower self this morning. Pt. bathed and dressed with Mod I using walker and shower chair for support. Pt. tolerated treatment well. Education OT Patient Education: Modified ADL techniques, Progress toward Goal/Update tx plan, Purpose of tx/functional activities, Reviewed precautions, Rehab process, Transfer techniques Teaching Recipient: Patient Teaching Methods: Demonstration, Discussion Response to Teaching: Verbalize Understanding, Return Demonstration OT Short Term Goals Short Term Goals Time Frame: Apr 07, 2017 Upper Body Dressing(FIM): 5 Lower Body Dressing(FIM): 4 Toileting(FIM): 5 Transfers (B,C,W/C) (FIM): 5 (met) Additional Short Term Goals: 1-Demonstrate ADL Tasks, 2-Verbalize Understanding , 3-ImproveStrength/[place] 1=Demonstrate adherence to instructed precautions during ADL tasks. 2=Patient will verbalize/demonstrate understanding of assistive devices/ modifications for ADL. 3=Patient will improve strength/tolerance for activity to enable patient to perform ADL's. OT Honing Machine Try Out Setter Goals Honing Machine Try Out Setter Goals Time Frame: Apr 21, 2017 Eating (FIM): 6 Eating (QC): 6 Groomin Oral Hygiene (QC): 6 Bathing(FIM): 5 Shower/Bathe Self (QC): 5 Upper Body Dressing(FIM): 6 Upper Body Dressing (QC): 6 Lower Body Dressing(FIM): 6 Lower Body Dressing (QC): 6 On/Off Footwear (QC): 6 Toileting(FIM): 6 Toilet/Commode Transfer(FIM): 6 Toilet/Commode Transfer (QC): 6 Additional Goals: 1-Demonstrate ADL Tasks, 2-Verbalize Understanding, 3- ImproveStrength/[place] 1=Demonstrate adherence to instructed precautions during ADL tasks. 2=Patient will verbalize/demonstrate understanding of assistive devices/ modifications for ADL. 3=Patient will improve strength/tolerance for activity to enable patient to perform ADL's. OT Education/Plan Discharge Recommendations Plan/Recommendations: Discharge/Goals Met Therapy D/C Recommendations: Home w/ Family Support Treatment Plan/Plan of Care Treatment,Training & Education: Yes . Treatment Duration: Apr 21, 2017 Frequency: At least 5 of 7 days/Wk (IRF) Estimated Hrs Per Day: 1.5 hours per day Agreement: Yes Rehab Potential: Good Time/GCodes Start Time: 08:15 Stop Time: 08:55 Total Time Billed (hr/min): 40 Billed Treatment Time 1, ADL x 3 ESTHER FRIEDMAN OT Apr 12, 2017 13:03
--- NOTE | 2017-04-12 14:12 | Therapy Team Discharge Summary ---
Therapy Discharge Summary Discharge Recommendations Date of Discharge Apr 12, 2017 at 10:35 Therapy D/C Recommendations: Home w/ Family Support Occupational Therapy Pt. has been seen by occupational therapy to increase overall strength and independence with daily tasks. Pt. has met all goals. Pt. plans to discharge home with spouse. No further OT warranted at this time. Decreased Activ Tolerance, Impaired I ADL's PT Child Welfare Director Goals Child Welfare Director Goals PT Child Welfare Director Goals Time Frame: Apr 21, 2017 Transfers (B,C,W/C) (FIM): 6 Roll Left to Right (QC): 6 Sit to Lying (QC): 6 Lying-Sitting on Side/Bed(QC): 6 Sit to Stand (QC): 6 Chair/Hfk-wm-Qjump Xfer(QC): 6 Car Transfer (QC): 6 Does the Patient Walk: Yes Gait (FIM): 6 Gait distance (FIM): 3=150 ft Distance: 300 Walk 10 feet (QC): 6 Walk 10ft-Uneven Surface(QC): 6 Walk 50ft with 2 Turns (QC): 6 Walk 150 ft (QC): 6 Gait Level of Assist: 6 Gait Assistive Device: Cane Single Point Stairs (FIM): 6 # of Steps: 15 1 Step (curb) (QC): 6 4 Steps (QC): 6 12 Steps (QC): 6 Stairs Level Of Assist: 6 Picking up an Object (QC): 6 OT Mcfp Goals Mcfp Goals Time Frame: Apr 21, 2017 Eating (FIM): 6 (met) Eating (QC): 6 (met) Oral Hygiene (QC): 6 (met) Grooming(FIM): 6 (met) Bathing(FIM): 5 (met) Shower/Bathe Self (QC): 5 (met) Upper Body Dressing(FIM): 6 (met) Upper Body Dressing (QC): 6 (met) Lower Body Dressing(FIM): 6 (met) Lower Body Dressing (QC): 6 (met) On/Off Footwear (QC): 6 (met) Toileting(FIM): 6 (met) Toilet/Commode Transfer(FIM): 6 (met) Toilet/Commode Transfer (QC): 6 (met) Additional Goals: 1-Demonstrate ADL Tasks, 2-Verbalize Understanding, 3- ImproveStrength/[place] 1=Demonstrate adherence to instructed precautions during ADL tasks. 2=Patient will verbalize/demonstrate understanding of assistive devices/ modifications for ADL. 3=Patient will improve strength/tolerance for activity to enable patient to perform ADL's. ESTHER FRIEDMAN OT Apr 12, 2017 14:12
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
[2017-04-13] MEDS ORDERED: OXYC-471 PO (07:42)
[2017-04-13] MEDS ORDERED: FENT1PAT57 TD (07:42)
[2017-04-13] MEDS ORDERED: CALC-6 PO (07:42)
[2017-04-13] MEDS ORDERED: DILT180C54 PO (07:42)
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
== END 2017-04-12 10:35 | disposition home health service (06) | DRG 93 ==
PROVIDERS: ADMIT Physical Medicine & Rehabilitation; ATTEND Physical Medicine & Rehabilitation
DX: G72.81 Critical illness myopathy (principal); S32.039D Unspecified fracture of third lumbar vertebra, subsequent encounter for fracture with routine healing; S22.42XD Multiple fractures of ribs, left side, subsequent encounter for fracture with routine healing; F17.210 Nicotine dependence, cigarettes, uncomplicated; I48.2 Chronic atrial fibrillation; F41.9 Anxiety disorder, unspecified; Z85.038 Personal history of other malignant neoplasm of large intestine; V89.9XXD Person injured in unspecified vehicle accident, subsequent encounter
CPT/HCPCS: 73562

== ENCOUNTER 2017-04-12 15:06 | Inpatient (IN) | payer MEDICARE ==
[~2017-04-12] VITALS: Ht 160 cm; Wt 71.7 kg
[2017-04-12] VITALS (15 sets, daily range): BP systolic 84–142; BP diastolic 50–64
[~2017-04-12 15:06] MED LIST changes: +ALPR0.5T7 PO; +CALCIUM CARB/VIT D3; +DILT180C54 PO; +FENT1PAT8 TD; +GABA-488 PO; +MULT-35 PO; +OMG1KC PO; +OXYC-471 PO
[2017-04-12] MEDS ORDERED: ACETAMINOPHEN 500 MG TAB (TYLENOL) PO PRN ×2 (15:15→20:45)
[2017-04-12 15:22] LABS: BASOPHILS % (AUTO) 0 % (0-10); EOSINOPHILS # (AUTO) 0.1 10^3/uL (0.0-0.3); EOSINOPHILS % (AUTO) 1 % (0-10); LYMPHOCYTES # (AUTO) 0.5 X 10^3 (1.0-4.0); LYMPHOCYTES % (AUTO) 7 % (12-44); MEAN CORPUSCULAR HEMOGLOBIN 30 PG (25-34); MEAN CORPUSCULAR HGB CONC 34 G/DL (32-36); MEAN CORPUSCULAR VOLUME 86 FL (80-99); MEAN PLATELET VOLUME 8.5 FL (7.4-10.4); MONOCYTES # (AUTO) 0.3 X 10^3 (0.0-1.0); MONOCYTES % (AUTO) 4 % (0-12); NEUTROPHILS % (AUTO) 88 % (42-75); PLATELET COUNT 266 10^3/uL (130-400); RED BLOOD COUNT 4.03 10^6/uL (4.35-5.85); RED CELL DISTRIBUTION WIDTH 13.1 % (10.0-14.5); WHITE BLOOD COUNT 6.8 10^3/uL (4.3-11.0)
[2017-04-12 15:32] LABS: INR 1.1 (0.8-1.4); PROTHROMBIN TIME PATIENT 14.2 SEC (12.2-14.7)
[2017-04-12 15:39] LABS: ALANINE AMINOTRANSFERASE 11 U/L (0-55); ALBUMIN 3.1 GM/DL (3.2-4.5); ANION GAP 8 MMOL/L (5-14); ASPARTATE AMINO TRANSFERASE 17 U/L (5-34); BILIRUBIN,TOTAL 0.8 MG/DL (0.1-1.0); BLOOD UREA NITROGEN 7 MG/DL (7-18); BUN/CREATININE RATIO 10; CALCIUM 7.9 MG/DL (8.5-10.1); CARBON DIOXIDE 24 MMOL/L (21-32); CHLORIDE 108 MMOL/L (98-107); CREATININE SERUM 0.72 MG/DL (0.60-1.30); GFR ESTIMATED > 60; GLUCOSE 145 MG/DL (70-105); POTASSIUM 3.1 MMOL/L (3.6-5.0); SODIUM 140 MMOL/L (135-145); TOTAL PROTEIN 5.9 GM/DL (6.4-8.2)
[2017-04-12 15:45] LABS: BAND NEUTROPHILS 12 %; BASOPHILS % (MANUAL) 1 %; EOSINOPHILS % (MANUAL) 1 %; LYMPHOCYTES % (MANUAL) 7 %; NEUTROPHILS % (MANUAL) 76 %
--- NOTE | 2017-04-12 16:27 | Diagnostic Imaging Report ---
PROCEDURE: CT head without contrast. TECHNIQUE: Multiple contiguous axial images were obtained through the brain without the use of intravenous contrast. INDICATION: Headache. Nausea and vomiting. Weakness. FINDINGS: There is no intracranial hemorrhage, edema or mass effect. The brain parenchyma appears unremarkable. No hydrocephalus. The visualized portions of the orbits and paranasal sinuses appear unremarkable. IMPRESSION: Unremarkable study. Dictated by: Dictated on workstation # [id number]
--- NOTE | 2017-04-12 16:33 | Diagnostic Imaging Report ---
Upright portable radiograph of the chest. INDICATION: Nausea and vomiting. Chest tightness and shortness of breath. FINDINGS: There is a [id number] left effusion and left basilar infiltrate or atelectasis seen. The heart size is probably enlarged. The left border of the heart is obscured. No pneumothorax. The mediastinum and lulu appear unremarkable. IMPRESSION: [id number] left pleural effusion with consolidation and atelectasis in the mid and lower left lung. Consider thoracentesis and follow-up exams. Dictated by: Dictated on workstation # [id number]
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
[2017-04-12] MEDS ORDERED: LEVOFLOXACIN 750 MG/150 ML IV 150 ML IV STA (17:12)
[2017-04-12] MEDS ORDERED: NS IV PRN ×2 (17:15→20:45)
[2017-04-12] MEDS ORDERED: KETOROLAC 30 MG/ML VIAL IVP STA (17:37)
[2017-04-12] MEDS ORDERED: RT-ALBUTEROL/IPRATROPIUM 3 ML (DUONEB) VIAL INH ONE (17:45)
[2017-04-12] MEDS ORDERED: NS 100 ML (IVPB) BAG IV ONE (17:45)
[2017-04-12] MEDS ORDERED: IOHEXOL 350 MG/ML 150 ML (OMNIPAQUE 350) VIAL IV ONE (17:45)
[2017-04-12] MEDS ORDERED: RT-ALBUTEROL SULF 2.5 MG/3 ML PRE-MIX VIAL INH STA (18:14)
[2017-04-12] MEDS ORDERED: RT-IPRATROPIUM (ATROVENT) 0.5MG/2.5ML AMP IH ONE (18:15)
[2017-04-12 18:25] LABS: BILIRUBIN,URINE NEGATIVE (NEGATIVE); KETONES,URINE NEGATIVE (NEGATIVE); LEUKOCYTE ESTERASE ,URINE 2+ (NEGATIVE); NITRITE,URINE NEGATIVE (NEGATIVE); PH,URINE 5 (5-9); PROTEIN,URINE NEGATIVE (NEGATIVE); UROBILINOGEN,URINE NORMAL (NORMAL)
--- NOTE | 2017-04-12 20:09 | Diagnostic Imaging Report ---
PROCEDURE: CT angiography of the chest with contrast. TECHNIQUE: Multiple contiguous axial images were obtained through the chest after uneventful bolus administration of intravenous contrast. Reconstructed CTA MIP acquisitions were also performed. INDICATION: Chest pain, shortness of breath. FINDINGS: There is a left basilar consolidation suspect for pneumonia with a moderately large left pleural effusion. There is also some right basilar subsegmental atelectasis and/or pneumonitis. There is no pneumothorax. The thoracic aorta is normal in caliber without evidence of dissection. There are no filling defects seen within the pulmonary arteries to suggest pulmonary embolism. The heart size is normal. There is a cyst in right lobe of the liver. There is some fluid or minimal inflammatory induration along the medial aspect of the spleen. The remainder of the intraabdominal structures are unremarkable. IMPRESSION: Left basilar consolidation suspect for pneumonia with a moderately large left pleural effusion. There is also some right basilar subsegmental atelectasis and/or pneumonitis. No evidence of pulmonary embolism or aortic dissection. Inflammatory induration and/or a small amount of fluid along the medial and caudal aspect of the spleen. This is of uncertain clinical significance. Recommend clinical correlation. Dictated by: Dictated on workstation # [id number]
[2017-04-12] MEDS ORDERED: NS W/KCL 20 MEQ/L 1,000 ML IV ONE (20:13)
[2017-04-12] MEDS ORDERED: VANCOMYCIN 1500 MG/NS 500 ML IVPB IV NR ×2 (20:30)
[2017-04-12] MEDS: NOREPINEPHRINE 4 MG in D5W IV SOLUTION (EXCEL) 250 ML IV SCH (20:32)
[2017-04-12] MEDS: VASOPRESSIN INJECTION 20 UNIT in NS (IVPB) 50 ML IV SCH (20:32)
[2017-04-12] MEDS: PHENYLEPHRINE INJECTION 10 MG in D5W IV SOLUTION (EXCEL) 250 ML IV SCH (20:35)
[2017-04-12] MEDS ORDERED: CATHETER FLUSH 10 ML SYR IV PRN (20:45)
[2017-04-12] MEDS ORDERED: ONDANSETRON 4 MG/2 ML (SDV) Z0FRAN IV PRN (20:45)
[2017-04-12] MEDS ORDERED: KETOROLAC 15 MG/ML VIAL IV PRN (20:45)
--- NOTE | 2017-04-12 21:14 | Diagnostic Imaging Report ---
INDICATION: Evaluate line placement. Comparison is made with prior examination from earlier same day. FINDINGS: There is now a right internal jugular central venous catheter in place with its tip in superior vena cava. There is a persistent left basilar consolidation and left pleural effusion. There is increasing right basilar atelectasis and/or pneumonitis. There is no pneumothorax. Mediastinum is unremarkable. IMPRESSION: The right internal jugular central venous catheter appears to be in satisfactory position. Persistent left basilar pneumonia and left pleural effusion. Increasing right basilar atelectasis and/or pneumonitis. Dictated by: Dictated on workstation # [id number]
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
--- NOTE | 2017-04-12 21:23 | Progress Note-Post Operative ---
Post-Operative Progess Note Surgeon (s)/Painter Sign Maintenance (s) Surgeon LADARIUS CASTANO DO Painter Sign Maintenance: na Pre-Operative Diagnosis sepsis Post-Operative Diagnosis same Procedure & Operative Findings Date of Procedure 04/12/17 Procedure Performed/Findings central line placement u/s guided right IJ Anesthesia Type local Estimated Blood Loss Estimated blood loss (mL): min Specimens/Packing Specimens Removed na LADARIUS CASTANO DO Apr 12, 2017 21:23
[2017-04-12] MEDS: NS W/KCL 20 MEQ/L 1,000 ML IV SCH (21:57)
[2017-04-12] MEDS: CEFEPIME 2 GM/NS 50 ML IVPB IV SCH ×2 (21:58)
[2017-04-12] MEDS: AZITHROMYCIN 500 MG/NS 250 ML IVPB IV SCH ×2 (23:25)
[2017-04-12] MEDS ORDERED: RT-ALBUTEROL/IPRATROPIUM 3 ML (DUONEB) VIAL INH PRN (23:45)
[2017-04-13] VITALS (24 sets, daily range): BP systolic 95–132; BP diastolic 50–74
[2017-04-13] MEDS: NS W/KCL 20 MEQ/L 1,000 ML IV SCH ×4 (00:23→17:40)
[2017-04-13] MEDS: PHENYLEPHRINE INJECTION 10 MG in D5W IV SOLUTION (EXCEL) 250 ML IV SCH ×6 (00:45→20:56)
[2017-04-13] MEDS: RT-ALBUTEROL/IPRATROPIUM 3 ML (DUONEB) VIAL INH SCH ×6 (02:39→22:53)
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
[2017-04-13] MEDS: VASOPRESSIN INJECTION 20 UNIT in NS (IVPB) 50 ML IV SCH ×3 (04:42→20:55)
[2017-04-13 05:05] LABS: BASOPHILS % (AUTO) 0 % (0-10); EOSINOPHILS # (AUTO) 0.1 10^3/uL (0.0-0.3); EOSINOPHILS % (AUTO) 1 % (0-10); LYMPHOCYTES # (AUTO) 0.6 X 10^3 (1.0-4.0); LYMPHOCYTES % (AUTO) 6 % (12-44); MEAN CORPUSCULAR HEMOGLOBIN 29 PG (25-34); MEAN CORPUSCULAR HGB CONC 34 G/DL (32-36); MEAN CORPUSCULAR VOLUME 87 FL (80-99); MEAN PLATELET VOLUME 8.6 FL (7.4-10.4); MONOCYTES # (AUTO) 0.7 X 10^3 (0.0-1.0); MONOCYTES % (AUTO) 8 % (0-12); NEUTROPHILS # (AUTO) 8.3 X 10^3 (1.8-7.8); NEUTROPHILS % (AUTO) 85 % (42-75); PLATELET COUNT 238 10^3/uL (130-400); RED BLOOD COUNT 3.44 10^6/uL (4.35-5.85); RED CELL DISTRIBUTION WIDTH 13.7 % (10.0-14.5); WHITE BLOOD COUNT 9.8 10^3/uL (4.3-11.0)
[2017-04-13 05:20] LABS: ANION GAP 8 MMOL/L (5-14); BLOOD UREA NITROGEN 9 MG/DL (7-18); BUN/CREATININE RATIO 14; CARBON DIOXIDE 20 MMOL/L (21-32); CHLORIDE 112 MMOL/L (98-107); CREATININE SERUM 0.65 MG/DL (0.60-1.30); POTASSIUM 3.3 MMOL/L (3.6-5.0); SODIUM 140 MMOL/L (135-145)
[2017-04-13 05:21] LABS: ALANINE AMINOTRANSFERASE 9 U/L (0-55); ALBUMIN 2.5 GM/DL (3.2-4.5); ASPARTATE AMINO TRANSFERASE 16 U/L (5-34); BILIRUBIN,TOTAL 0.6 MG/DL (0.1-1.0); GFR ESTIMATED > 60; GLUCOSE 113 MG/DL (70-105); MAGNESIUM 1.2 MG/DL (1.8-2.4); PHOSPHORUS 2.6 MG/DL (2.3-4.7); TOTAL PROTEIN 4.8 GM/DL (6.4-8.2)
[2017-04-13] MEDS: MAGNESIUM 1 GM/100 ML IVPB 100 ML IV SCH ×5 (06:00→08:04)
[2017-04-13] MEDS: POTASSIUM CL 10MEQ/50ML IVPB 50 ML IV SCH ×5 (06:00→08:04)
[2017-04-13] MEDS: KCL 20 MEQ TAB (K-DUR) PO SCH (06:00)
[2017-04-13] MEDS ORDERED: ALPRAZolam 0.25 MG (XANAX) TAB PO PRN (07:30)
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
[2017-04-13] MEDS ORDERED: OXYC-471 PO (07:42)
[2017-04-13] MEDS ORDERED: CALC-6 PO (07:42)
[2017-04-13] MEDS ORDERED: DILT180C54 PO (07:42)
[2017-04-13] MEDS ORDERED: FENT1PAT57 TD (07:42)
[2017-04-13] MEDS ORDERED: morphine INJ 4 MG/ML 1 ML (VIAL/SYRINGE) IVP PRN (07:45)
[2017-04-13] MEDS: NOREPINEPHRINE 4 MG in D5W IV SOLUTION (EXCEL) 250 ML IV SCH ×2 (07:58→20:56)
[2017-04-13] MEDS ORDERED: LIDOCAINE 1% INJ 50 ML (XYLOCAINE) VIAL IJ NR (08:15)
--- NOTE | 2017-04-13 08:27 | Diagnostic Imaging Report ---
CHEST 1 VIEW, AP/PA ONLY INDICATION: Pneumonia with sepsis. COMPARISON: 05/02/2017 FINDINGS: Support Devices: Stable right IJ central venous catheter. Chest: No change in [id number] left pleural effusion. Left basilar heterogeneous consolidations are similar. Patchy bandlike opacities in the right lung base are similar. Grossly stable cardiomediastinal silhouette. No pneumothorax. IMPRESSION: 1. Stable support devices. 2. No change in jocah-kg-iayjwffo left pleural effusion with associated left basilar pulmonary opacities. Dictated by: Dictated on workstation # [id number]
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
--- NOTE | 2017-04-13 14:06 | Pulmonary Procedures ---
Pulmonary Procedures Date of Procedure Date of Service: Apr 13, 2017 Procedure: US guided complex thoracentesis Preop DX: pleural effusion post op DX: Same 900cc of pink fluid obtained) Complications: None After informed consent obtained US was used to localize pleural fluid. Pt has [ bilateral L>R] pleural effusions. Skin was anesthetized at approximately the 10th ICS posterior axillary line. Thoracentesis needle was advanced through the 10th ICS posterior axillary line. Needle was removed and catheter left in place.900cc of pink fluid obtained using vacuum bottles. Catheter was then removed. Pt tolerated procedure well. No complications noted. SUSANNE MAYS DO Apr 13, 2017 14:06
--- NOTE | 2017-04-13 14:38 | Diagnostic Imaging Report ---
INDICATION: Post thoracentesis PA chest obtained at 228 hours p.m. There is no pneumothorax following left thoracentesis. Compared to same day at 522 hours a.m., the left pleural effusion is much improved with some minimal residual. There is some mild bibasilar atelectatic change versus infiltrate. Right IJ central catheter is unchanged. IMPRESSION: Significant improvement in left pleural effusion post thoracentesis with no pneumothorax post procedure. No other significant changes. Dictated by: Dictated on workstation # [id number]
[2017-04-13 14:48] LABS: GLUCOSE,BODY FLUID 114 MG/DL; TOTAL PROTEIN,BODY FLUID 2.6 G/DL
[2017-04-13 14:49] LABS: LDH,BODY FLUID 116 U/L
[2017-04-13] MEDS: AZITHROMYCIN 500 MG/NS 250 ML IVPB IV SCH ×2 (21:04)
[2017-04-13] MEDS: CEFEPIME 2 GM/NS 50 ML IVPB IV SCH ×2 (21:07)
[2017-04-13] MEDS: VANCOMYCIN 1250 MG/NS 250 ML IVPB IV SCH ×2 (21:10)
[2017-04-14] VITALS (24 sets, daily range): BP systolic 110–143; BP diastolic 55–77
[2017-04-14] MEDS: NS W/KCL 20 MEQ/L 1,000 ML IV SCH ×2 (00:07→11:05)
[2017-04-14] MEDS: PHENYLEPHRINE INJECTION 10 MG in D5W IV SOLUTION (EXCEL) 250 ML IV SCH ×2 (00:44→02:27)
[2017-04-14] MEDS: VASOPRESSIN INJECTION 20 UNIT in NS (IVPB) 50 ML IV SCH (00:44)
[2017-04-14] MEDS: RT-ALBUTEROL/IPRATROPIUM 3 ML (DUONEB) VIAL INH SCH ×6 (03:05→22:10)
[2017-04-14 04:54] LABS: BASOPHILS % (AUTO) 0 % (0-10); EOSINOPHILS # (AUTO) 0.7 10^3/uL (0.0-0.3); EOSINOPHILS % (AUTO) 8 % (0-10); LYMPHOCYTES # (AUTO) 1.2 X 10^3 (1.0-4.0); LYMPHOCYTES % (AUTO) 16 % (12-44); MEAN CORPUSCULAR HEMOGLOBIN 29 PG (25-34); MEAN CORPUSCULAR HGB CONC 34 G/DL (32-36); MEAN CORPUSCULAR VOLUME 88 FL (80-99); MEAN PLATELET VOLUME 8.8 FL (7.4-10.4); MONOCYTES # (AUTO) 0.7 X 10^3 (0.0-1.0); MONOCYTES % (AUTO) 9 % (0-12); NEUTROPHILS # (AUTO) 5.4 X 10^3 (1.8-7.8); NEUTROPHILS % (AUTO) 67 % (42-75); PLATELET COUNT 210 10^3/uL (130-400); RED BLOOD COUNT 3.33 10^6/uL (4.35-5.85)
[2017-04-14] MEDS ORDERED: FUROSEMIDE 40 MG/4 ML INJ (LASIX) IVP ONE (05:15)
[2017-04-14 05:20] LABS: ALANINE AMINOTRANSFERASE 9 U/L (0-55); ALBUMIN 2.5 GM/DL (3.2-4.5); ANION GAP 6 MMOL/L (5-14); ASPARTATE AMINO TRANSFERASE 15 U/L (5-34); BILIRUBIN,TOTAL 0.5 MG/DL (0.1-1.0); BLOOD UREA NITROGEN 5 MG/DL (7-18); BUN/CREATININE RATIO 9; CALCIUM 7.1 MG/DL (8.5-10.1); CARBON DIOXIDE 19 MMOL/L (21-32); CHLORIDE 114 MMOL/L (98-107); CREATININE SERUM 0.55 MG/DL (0.60-1.30); GFR ESTIMATED > 60; GLUCOSE 100 MG/DL (70-105); PHOSPHORUS 1.9 MG/DL (2.3-4.7); POTASSIUM 4.2 MMOL/L (3.6-5.0); SODIUM 139 MMOL/L (135-145); TOTAL PROTEIN 4.6 GM/DL (6.4-8.2)
[2017-04-14] MEDS: MAGNESIUM 1 GM/100 ML IVPB 100 ML IV SCH (06:11)
[2017-04-14] MEDS: KCL 20 MEQ TAB (K-DUR) PO SCH (06:11)
[2017-04-14] MEDS: POTASSIUM CL 10MEQ/50ML IVPB 50 ML IV SCH (06:11)
[2017-04-14] MEDS ORDERED: KCL 20 MEQ TAB (K-DUR) PO NR (06:57)
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
[2017-04-14] MEDS: FLUoxetine HCL 20 MG (PROzac) CAP PO SCH (08:18)
[2017-04-14] MEDS: GABAPENTIN 300 MG (NEURONTIN) CAP PO SCH (08:18)
--- NOTE | 2017-04-14 08:44 | Physical Therapy Evaluation ---
PT Evaluation-General Medical Diagnosis Admission Date Apr 12, 2017 at 19:20 Medical Diagnosis: Pneumonia Onset Date: Apr 12, 2017 Therapy Diagnosis Therapy Diagnosis: weakness, debility Height/Weight Height (Feet): 5 Height (Inches): 3.00 Weight (Pounds): 165 Weight (Ounces): 8.0 Precautions Precautions/Isolations: Fall Prevention, Standard Precautions Weight Bear Status Right Lower Extremity: Right Weight Bearing/Tolerated Left Lower Extremity: Left Weight Bearing/Tolerated Referral Physician: Kyra Concepcion MD Reason for Referral: Evaluation/Treatment, Strengthening Medical History Pertinent Medical History: Atrial Fib, Arthritis Additional Medical History Pneumonia, benign prostatic hyperplasia, chr. diarrhea, colon cancer, anxiety, depression Reviewed History: Yes Social History Home: Multilevel Current Living Status: Spouse Entry Into Home: Stairs With Railing PT Steps Into Home: 4 Prior/Core FIM Prior Level of Function Functional [place] Measure 0=Not Assessed/NA 4=Minimal Assistance 1=Total Assistance 5=Supervision or Setup 2=Maximal Assistance 6=Modified [place] 3=Moderate Assistance 7=Complete [place] Bed Mobility: 7 Transfers (B,C,W/C) (FIM): 7 Gait: 7 Locomotion: 7 Patient fully independent previously, she had just left rehab the day before readmission. PT Evaluation-Current Subjective Patient states she was only gone from inpatient rehab a few hours before feeling extremely weak to the point that she could not get up. She reports that her condition is improving since admission into the hospital. She agrees to PT eval and transfer to the commode to toilet. Pain Comment: none reported, patient states she feels weak Pt/Family Goals Patient wishes to return to more independent function in the home. Objective Patient Orientation: Person, Place, Time, Situation Attachments: Oxygen, Pena Catheter, IV Wound vac in abdominal region ROM/Strength ROM Lower Extremities WNL Strength Lower Extremities 4/5 gross bilateral lower extremities Integumentary/Posture Integumentary wound in abdominal region Bowel Incontinence: No Bladder Incontinence: Pena Cath Sensory Vision: Wears Glasses Hearing: Functional Sensation Right Upper Extremit: Intact Sensation Left Upper Extremity: Intact Sensation Right Lower Extremit: Intact Sensation Left Lower Extremity: Intact Transfers Functional [place] Measure 0=Not Assessed/NA 4=Minimal Assistance 1=Total Assistance 5=Supervision or Setup 2=Maximal Assistance 6=Modified [place] 3=Moderate Assistance 7=Complete [place] Transfers (B, C, W/C) (FIM): 4 Scootin Rollin Supine to/from Sit: 5 Sit to/from Stand: 4 Patient was SBA for bed mobility. Patient was CGA for rise to stand for safety due to first transition out of bed since admission into the hospital. Gait Mode of Locomotion: Walk Anticipated Mode of Locomotion: Walk Gait (FIM): 1 Distance: 5' Gait Level of Assist: 4 Gait Persons Needed: 1 Gait Assistive Device: FWW Comments/Gait Description CGA Balance Sitting Static: Normal Sitting Dynamic: Normal Standing Static: Fair Standing Dynamic: Fair Treatment Patient was transferred to bedside commode and then to recliner. Patient left with nursing post tx. Assessment/Needs Patient is generally weak from current illness. Patient has good potential for improvement as her status improves. Rehab Potential: Fair PT Short Term Goals Short Term Goals Time Frame: Apr 21, 2017 Transfers (B,C,W/C) (FIM): 5 Gait (FIM): 5 Gait Distance Comment: 200' Gait Level of Assist: 5 Gait Assistive Device: FWW PT Plan Problem List Problem List: Activity Tolerance, Functional Strength, Safety, Balance, Gait, Transfer, Bed Mobility Treatment/Plan Treatment Plan: Continue Plan of Care Treatment Plan: Bed Mobility, Education, Functional Activity [place], Functional Strength, Gait, Safety, Therapeutic Exercise, Transfers Treatment Duration: Apr 21, 2017 Frequency: 6 times per week Estimated Hrs Per Day: .25 hour per day (15-30') Patient and/or Family Agrees t: Yes Safety Risks/Education Patient Education: Gait Training, Transfer Techniques, Reviewed Precautions, Correct Positioning, Disease Process, Safety Issues Teaching Recipient: Patient Teaching Methods: Demonstration, Discussion Response to Teaching: Reinforcement Needed Discharge Recommendations Therapy D/C Recommendations: Home w/ Family Support Equpiment Recommendations-D/C: Front Wheeled Walker Time/GCodes Time In: 825 Time Out: 842 Total Billed Treatment Time: 17 Total Billed Treatment 1 visit EVM 17 min JYOTSNA GORMAN PT Apr 14, 2017 08:44
--- NOTE | 2017-04-14 08:57 | Diagnostic Imaging Report ---
INDICATION: Sepsis and left pleural effusion. TECHNIQUE: A frontal chest was obtained at 0527 hours. COMPARISON: 04/13/2017. FINDINGS: The heart is borderline in size. There is worsening left basilar infiltrate with increasing left pleural fluid. There is no pneumothorax. The right IJ central catheter is unchanged. IMPRESSION: Worsening left basilar infiltrate with some left pleural fluid. Consider decubitus view as indicated. Dictated by: Dictated on workstation # [id number]
[2017-04-14] MEDS ORDERED: LIDOCAINE 1% INJ 20 ML (XYLOCAINE) VIAL INJ PRN (10:15)
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
[2017-04-14] MEDS ORDERED: FUROSEMIDE 40 MG/4 ML INJ (LASIX) IVP NR (14:00)
[2017-04-14] MEDS ORDERED: TROUGH ORDER-PHARMACY XX NR (19:30)
[2017-04-14] MEDS: AZITHROMYCIN 500 MG/NS 250 ML IVPB IV SCH ×2 (20:44)
[2017-04-14] MEDS: CEFEPIME 2 GM/NS 50 ML IVPB IV SCH ×2 (20:44)
[2017-04-14] MEDS: VANCOMYCIN 1250 MG/NS 250 ML IVPB IV SCH ×2 (20:49)
[2017-04-15] VITALS (24 sets, daily range): BP systolic 101–145; BP diastolic 49–71
[2017-04-15] MEDS: RT-ALBUTEROL/IPRATROPIUM 3 ML (DUONEB) VIAL INH SCH ×6 (02:04→22:30)
[2017-04-15 04:55] LABS: BASOPHILS % (AUTO) 0 % (0-10); EOSINOPHILS # (AUTO) 0.3 10^3/uL (0.0-0.3); EOSINOPHILS % (AUTO) 5 % (0-10); LYMPHOCYTES # (AUTO) 1.3 X 10^3 (1.0-4.0); LYMPHOCYTES % (AUTO) 20 % (12-44); MEAN CORPUSCULAR HEMOGLOBIN 30 PG (25-34); MEAN CORPUSCULAR HGB CONC 34 G/DL (32-36); MEAN CORPUSCULAR VOLUME 88 FL (80-99); MONOCYTES # (AUTO) 0.7 X 10^3 (0.0-1.0); MONOCYTES % (AUTO) 11 % (0-12); NEUTROPHILS # (AUTO) 4.2 X 10^3 (1.8-7.8); NEUTROPHILS % (AUTO) 64 % (42-75); PLATELET COUNT 225 10^3/uL (130-400); RED BLOOD COUNT 3.28 10^6/uL (4.35-5.85); RED CELL DISTRIBUTION WIDTH 13.6 % (10.0-14.5); WHITE BLOOD COUNT 6.5 10^3/uL (4.3-11.0)
[2017-04-15 05:09] LABS: ALANINE AMINOTRANSFERASE 9 U/L (0-55); ALBUMIN 2.6 GM/DL (3.2-4.5); ANION GAP 8 MMOL/L (5-14); ASPARTATE AMINO TRANSFERASE 12 U/L (5-34); BILIRUBIN,TOTAL 0.6 MG/DL (0.1-1.0); BLOOD UREA NITROGEN 4 MG/DL (7-18); BUN/CREATININE RATIO 7; CARBON DIOXIDE 23 MMOL/L (21-32); CHLORIDE 109 MMOL/L (98-107); CREATININE SERUM 0.59 MG/DL (0.60-1.30); GFR ESTIMATED > 60; GLUCOSE 104 MG/DL (70-105); MAGNESIUM 1.5 MG/DL (1.8-2.4); PHOSPHORUS 2.5 MG/DL (2.3-4.7); POTASSIUM 3.7 MMOL/L (3.6-5.0); SODIUM 140 MMOL/L (135-145); TOTAL PROTEIN 4.8 GM/DL (6.4-8.2)
[2017-04-15] MEDS: KCL 20 MEQ TAB (K-DUR) PO SCH (05:25)
[2017-04-15] MEDS: POTASSIUM CL 10MEQ/50ML IVPB 50 ML IV SCH (05:25)
[2017-04-15] MEDS: MAGNESIUM 1 GM/100 ML IVPB 100 ML IV SCH ×3 (05:25→06:41)
[2017-04-15 07:31] LABS: STREP PNEUMOCOCCUS ANTIG Negative
[2017-04-15 07:32] LABS: LEGIONELLA PNEU ANTIGEN URINE Negative
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
--- NOTE | 2017-04-15 07:53 | Diagnostic Imaging Report ---
EXAM: CHEST 1 VIEW, AP/PA ONLY INDICATION: Sepsis. Pneumonia. COMPARISON: FINDINGS: Normal heart size and pulmonary vascularity. Right IJ CVC tip mid SVC. Persistent consolidation in the left lung base. Probable small left pleural effusion. No pneumothorax. No acute osseous findings. IMPRESSION: Stable exam including persistent consolidation in the left lung base and probable small left pleural effusion. Dictated by: Dictated on workstation # [id number]
[2017-04-15] MEDS: FUROSEMIDE 40 MG/4 ML INJ (LASIX) IVP SCH (08:17)
[2017-04-15] MEDS: FLUoxetine HCL 20 MG (PROzac) CAP PO SCH (08:17)
[2017-04-15] MEDS: GABAPENTIN 300 MG (NEURONTIN) CAP PO SCH (08:17)
--- NOTE | 2017-04-15 11:14 | Physical Therapy Daily Note ---
PT Daily Note-Current Subjective Patient states she is feeling better on this date and believes she can get up and move around today. Pain Numeric Pain Scale: 0-No Pain Location: No Pain Reported Appearance Patient appears generally healthy. Patient is left on te bedside commode with call light in hand. Mental Status Patient Orientation: Person, Place, Time, Situation Attachments: Oxygen, Pena Catheter Wound vac; 8L of O2 Transfers Functional [place] Measure 0=Not Assessed/NA 4=Minimal Assistance 1=Total Assistance 5=Supervision or Setup 2=Maximal Assistance 6=Modified [place] 3=Moderate Assistance 7=Complete IndependenceIRFPAI Quality Coding Scale 6 Independent with activity with or without an assistive device 5 Patient requires set up or clean up by helper. Patient completes activity by themselves 4 Supervision or touching assist (CGA). [place] provide cues , steadying assist 3 The helper provides less than half the effort to complete the activity 2 The helper provides more than half the effort to complete the activity 1 Dependent. The helper does all the effort to complete an activity 7 Patient refused to complete or attempt activity 9 The patient did not perform the activity before the current illness or injury 88 Not attempted due to Medical conditions or safety concerns Transfers (B, C, W/C) (FIM): 5 Scootin Rollin Supine to/from Sit: 5 Sit to/from Stand: 5 Patient performs all bed mobility and transfers with SBA from PT. Weight Bearing Right Lower Extremity: Right Weight Bearing/Tolerated Left Lower Extremity: Left Weight Bearing/Tolerated Gait Training Gait (FIM): 5 Distance: 200' Gait Level of Assist: 5 Gait Persons Needed: 1 Gait Assistive Device: FWW Patient ambulates with a slow step through gait pattern with short stride. Patient ambulates safely with FWW. Assessment Current Status: Good Progress Patient had improved tolerance for gait on this date. Patient appeared to be much more motivated to improve function. PT will continue to address functional activity tolerance through gait and therapeutic exercise. PT Short Term Goals Short Term Goals Time Frame: Apr 21, 2017 Transfers (B,C,W/C) (FIM): 5 Gait (FIM): 5 Gait Distance Comment: 200' Gait Level of Assist: 5 Gait Assistive Device: FWW PT Plan Problem List Problem List: Activity Tolerance, Functional Strength, Safety, Balance, Gait Treatment/Plan Treatment Plan: Continue Plan of Care Treatment Plan: Bed Mobility, Education, Functional Activity [place], Functional Strength, Gait, Safety, Therapeutic Exercise, Transfers Treatment Duration: Apr 21, 2017 Frequency: 6 times per week Estimated Hrs Per Day: .25 hour per day (15-30') Patient and/or Family Agrees t: Yes Time/GCodes Time In: 942 Time Out: 1008 Total Billed Treatment Time: 26 Total Billed Treatment 1 visit GT 15 min FA 11 min TAYLOR WOMACK PT Apr 15, 2017 11:14
[2017-04-15] MEDS: LACTOBACILLUS Acidoph/Bulgar (LACTINEX/FLORANEX) TAB PO SCH ×2 (12:01→16:14)
--- NOTE | 2017-04-15 15:12 | Occupational Ther Daily Note ---
OT Current Status-Daily Note Subjective Pt. does not report pain. Appearance Pt. is in bed. After multiple attempts, pt. agrees to spongebathe. Mental Status/Objective Patient Orientation: Person, Place, Time, Situation Functional [place] Measure 0=Not Assessed/NA 4=Minimal Assistance 1=Total Assistance 5=Supervision or Setup 2=Maximal Assistance 6=Modified [place] 3=Moderate Assistance 7=Complete [place]at[place] ADL-Treatment Eating (FIM): 5 (Lunch arrives and pt. is able to eat after set up.) Grooming (FIM): 5 (Pt. is able to brush her hair.) Bathing (FIM): 4 (Pt. requires min assist to wash rear kristina area in stance.) Lower Body Dressing (FIM): 5 (SBA to doff/don socks.) Transfers (B, C, W/C) (FIM): 5 (SBA to transfer to and from supine-sit and sit- stand.) Other Treatment OT attempted multiple times to treat pt. First time, pt. getting ready to eat. Second time pt. had company. Third time, pt. agreed to spongebathe. Pt. able to transfer to side of bed with SBA and complete spongebath. Pt. tolerated this well. All needs met and pt. transferred back to bed. Education OT Patient Education: Correct positioning, Modified ADL techniques, Progress toward Goal/Update tx plan, Purpose of tx/functional activities, Reviewed precautions, Rehab process, Transfer techniques Teaching Recipient: Patient Teaching Methods: Demonstration, Discussion Response to Teaching: Verbalize Understanding, Return Demonstration OT Short Term Goals Short Term Goals Transfers (B,C,W/C) (FIM): 5 1=Demonstrate adherence to instructed precautions during ADL tasks. 2=Patient will verbalize/demonstrate understanding of assistive devices/ modifications for ADL. 3=Patient will improve strength/tolerance for activity to enable patient to perform ADL's. OT Special Procedures Tech Goals Care Home Goals Time Frame: Apr 23, 2017 Grooming(FIM): 6 Bathing(FIM): 5 Upper Body Dressing(FIM): 6 Lower Body Dressing(FIM): 6 Toileting(FIM): 6 Toilet/Commode Transfer(FIM): 6 Additional Goals: 2-Verbalize Understanding, 3-ImproveStrength/[place] 1=Demonstrate adherence to instructed precautions during ADL tasks. 2=Patient will verbalize/demonstrate understanding of assistive devices/ modifications for ADL. 3=Patient will improve strength/tolerance for activity to enable patient to perform ADL's. OT Education/Plan Problem List/Assessment Assessment: Decreased Activ Tolerance, Impaired I ADL's, Impaired Self-Care Skills Pt to benefit from skilled OT intervention for ADL training, transfers, strengthening, and safety education to improve level of function and allow safe return home Discharge Recommendations Plan/Recommendations: Continue POC Therapy D/C Recommendations: Home w/ Family Support, Occupational Therapy Home Care Treatment Plan/Plan of Care Treatment,Training & Education: Yes Patient would benefit from OT for education, treatment and training to promote independence in ADL's, mobility, safety and/or upper extremity function for ADL' s. Plan of Care: ADL Retraining, Functional Mobility, UE Funct Exercise/Act Treatment Duration: Apr 23, 2017 Frequency: 5 times per week Estimated Hrs Per Day: .25 hour per day Agreement: Yes Rehab Potential: Fair Time/GCodes Start Time: 14:30 Stop Time: 14:50 Total Time Billed (hr/min): 20 Billed Treatment Time 1, 1, 1, ADL x 20minutes ESTHER FRIEDMAN OT Apr 15, 2017 15:12
[2017-04-15] MEDS: AZITHROMYCIN 500 MG/NS 250 ML IVPB IV SCH ×2 (21:49)
[2017-04-15] MEDS: CEFEPIME 2 GM/NS 50 ML IVPB IV SCH ×2 (21:49)
[2017-04-16] VITALS (13 sets, daily range): BP systolic 119–161; BP diastolic 58–89
[2017-04-16] MEDS: RT-ALBUTEROL/IPRATROPIUM 3 ML (DUONEB) VIAL INH SCH ×6 (02:15→22:32)
[2017-04-16 05:02] LABS: BASOPHILS % (AUTO) 0 % (0-10); EOSINOPHILS # (AUTO) 0.2 10^3/uL (0.0-0.3); EOSINOPHILS % (AUTO) 3 % (0-10); LYMPHOCYTES # (AUTO) 1.4 X 10^3 (1.0-4.0); LYMPHOCYTES % (AUTO) 23 % (12-44); MEAN CORPUSCULAR HEMOGLOBIN 30 PG (25-34); MEAN CORPUSCULAR HGB CONC 34 G/DL (32-36); MEAN CORPUSCULAR VOLUME 87 FL (80-99); MONOCYTES # (AUTO) 0.6 X 10^3 (0.0-1.0); MONOCYTES % (AUTO) 11 % (0-12); NEUTROPHILS # (AUTO) 3.7 X 10^3 (1.8-7.8); NEUTROPHILS % (AUTO) 63 % (42-75); PLATELET COUNT 242 10^3/uL (130-400); RED CELL DISTRIBUTION WIDTH 13.3 % (10.0-14.5); WHITE BLOOD COUNT 5.9 10^3/uL (4.3-11.0)
[2017-04-16 05:23] LABS: ALANINE AMINOTRANSFERASE 9 U/L (0-55); ALBUMIN 2.8 GM/DL (3.2-4.5); ANION GAP 9 MMOL/L (5-14); ASPARTATE AMINO TRANSFERASE 14 U/L (5-34); BILIRUBIN,TOTAL 0.6 MG/DL (0.1-1.0); BLOOD UREA NITROGEN 4 MG/DL (7-18); BUN/CREATININE RATIO 7; CALCIUM 8.1 MG/DL (8.5-10.1); CARBON DIOXIDE 25 MMOL/L (21-32); CHLORIDE 106 MMOL/L (98-107); CREATININE SERUM 0.57 MG/DL (0.60-1.30); GFR ESTIMATED > 60; GLUCOSE 109 MG/DL (70-105); MAGNESIUM 1.7 MG/DL (1.8-2.4); PHOSPHORUS 3.3 MG/DL (2.3-4.7); POTASSIUM 3.3 MMOL/L (3.6-5.0); SODIUM 140 MMOL/L (135-145); TOTAL PROTEIN 5.4 GM/DL (6.4-8.2)
[2017-04-16] MEDS: MAGNESIUM 1 GM/100 ML IVPB 100 ML IV SCH ×3 (06:00→11:46)
[2017-04-16] MEDS: POTASSIUM CL 10MEQ/50ML IVPB 50 ML IV SCH (06:00)
[2017-04-16] MEDS: KCL 20 MEQ TAB (K-DUR) PO SCH ×2 (06:00→09:29)
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
--- NOTE | 2017-04-16 08:03 | Diagnostic Imaging Report ---
INDICATION: Sepsis, pneumonia, pleural effusion. TECHNIQUE: Single view chest 4:43 AM. CORRELATION STUDY: 04/15/2017. FINDINGS: Heart size enlarged. Mediastinum prominent. There is presence of vascular congestion less severe. Left pleural effusion along with infiltrate of the left lung base stable. Infiltrate of the right perihilar region slightly more prominent. Right IJ central line unchanged. IMPRESSION: Cardiac enlargement with vascular congestion appearing improved. Combination of effusion along with infiltrate or atelectasis, left lung base, relatively stable. Right infrahilar infiltrate present. Dictated by: Dictated on workstation # [id number]
[2017-04-16] MEDS: FUROSEMIDE 40 MG/4 ML INJ (LASIX) IVP SCH (09:28)
[2017-04-16] MEDS: LACTOBACILLUS Acidoph/Bulgar (LACTINEX/FLORANEX) TAB PO SCH ×3 (09:28→16:43)
[2017-04-16] MEDS: FLUoxetine HCL 20 MG (PROzac) CAP PO SCH (09:29)
[2017-04-16] MEDS: GABAPENTIN 300 MG (NEURONTIN) CAP PO SCH (09:29)
--- NOTE | 2017-04-16 09:51 | Physical Therapy Daily Note ---
PT Daily Note-Current Subjective Patient is supine in bed upon PT entering the room. She states that she feels her condition is improving, but she is perturbed that she is not getting around as well as she was prior to admission to hospital. Pain Numeric Pain Scale: 0-No Pain Location: No Pain Reported Comment: no pain; soreness in abdomen and ribs Appearance Patient appears generally healthy. She is left post tx supine in bed with call light in reach and spouse present. Mental Status Patient Orientation: Normal For Age Attachments: Oxygen 8.0 L of O2; Wound vac Transfers Functional [place] Measure 0=Not Assessed/NA 4=Minimal Assistance 1=Total Assistance 5=Supervision or Setup 2=Maximal Assistance 6=Modified [place] 3=Moderate Assistance 7=Complete IndependenceIRFPAI Quality Coding Scale 6 Independent with activity with or without an assistive device 5 Patient requires set up or clean up by helper. Patient completes activity by themselves 4 Supervision or touching assist (CGA). [place] provide cues , steadying assist 3 The helper provides less than half the effort to complete the activity 2 The helper provides more than half the effort to complete the activity 1 Dependent. The helper does all the effort to complete an activity 7 Patient refused to complete or attempt activity 9 The patient did not perform the activity before the current illness or injury 88 Not attempted due to Medical conditions or safety concerns Transfers (B, C, W/C) (FIM): 5 Scootin Rollin Supine to/from Sit: 5 Sit to/from Stand: 5 Patient bed mobility and transfers are performed safely with SBA from PT. Weight Bearing Right Lower Extremity: Right Weight Bearing/Tolerated Left Lower Extremity: Left Weight Bearing/Tolerated Gait Training Gait (FIM): 5 Distance: 300' Gait Level of Assist: 5 Gait Persons Needed: 1 Gait Assistive Device: FWW Patient demonstrates normal gait pattern with walking. PT is SBA with oxygen and wound vac. Assessment Current Status: Good Progress Patient tolerates further gait distance and was more agreeable to PT intervention on this date. PT will continue to progress gait distance as well as educate patient on therapeutic exercises to improve strength and function. PT Short Term Goals Short Term Goals Time Frame: Apr 21, 2017 Transfers (B,C,W/C) (FIM): 5 Gait (FIM): 5 Gait Distance Comment: 200' Gait Level of Assist: 5 Gait Assistive Device: FWW PT Plan Problem List Problem List: Activity Tolerance, Functional Strength, Safety, Balance, Gait Treatment/Plan Treatment Plan: Continue Plan of Care Treatment Plan: Bed Mobility, Education, Functional Activity [place], Functional Strength, Gait, Safety, Therapeutic Exercise, Transfers Treatment Duration: Apr 21, 2017 Frequency: 6 times per week Estimated Hrs Per Day: .25 hour per day (15-30') Patient and/or Family Agrees t: Yes Time/GCodes Time In: 829 Time Out: 849 Total Billed Treatment Time: 20 Total Billed Treatment 1 visit GT 20 min TAYLOR WOMACK PT Apr 16, 2017 09:51
[2017-04-16] MEDS ORDERED: KCL 20 MEQ TAB (K-DUR) PO NR ×2 (11:00→13:00)
[2017-04-16] MEDS: ENOXAPARIN 40 MG/0.4 ML (LOVENOX) SYR SC SCH (12:56)
--- NOTE | 2017-04-16 14:39 | Occupational Ther Daily Note ---
OT Current Status-Daily Note Subjective Pt states she is feeling better and her pain is "tolerable", but does not rate. Mental Status/Objective Functional [place] Measure 0=Not Assessed/NA 4=Minimal Assistance 1=Total Assistance 5=Supervision or Setup 2=Maximal Assistance 6=Modified [place] 3=Moderate Assistance 7=Complete [place] Attachments: Pena Catheter, Oxygen, Other-See Comments (wound vac) ADL-Treatment Pt in restroom without oxygen when therapist arrives. Pt states she didn't think it would reach. Oxygen was placed on pt and RN was notified. RN placed pt on nasal cannula with extended tubing to make it easier to reach restroom. Pt able to complete toileting with minimal assistance. Sit to stand with supervision. Pt stood at sink to wash hands with SBA. Gait to chair with FWW, assist to manage wound vac. Transfer to chair with supervision. Pt states plan is to transfer to ARU on Wednesday for continued therapy. RT arrives for breathing treatment. Pt sitting in chair with needs met, spouse and RT present after session. Toileting (FIM): 4 Toilet/Commode Transfer (FIM): 5 OT Short Term Goals Short Term Goals Transfers (B,C,W/C) (FIM): 5 1=Demonstrate adherence to instructed precautions during ADL tasks. 2=Patient will verbalize/demonstrate understanding of assistive devices/ modifications for ADL. 3=Patient will improve strength/tolerance for activity to enable patient to perform ADL's. OT Fci Goals Communications Assistant Goals Time Frame: Apr 23, 2017 Grooming(FIM): 6 Bathing(FIM): 5 Upper Body Dressing(FIM): 6 Lower Body Dressing(FIM): 6 Toileting(FIM): 6 Toilet/Commode Transfer(FIM): 6 Additional Goals: 2-Verbalize Understanding, 3-ImproveStrength/[place] 1=Demonstrate adherence to instructed precautions during ADL tasks. 2=Patient will verbalize/demonstrate understanding of assistive devices/ modifications for ADL. 3=Patient will improve strength/tolerance for activity to enable patient to perform ADL's. OT Education/Plan Problem List/Assessment Pt to benefit from skilled OT intervention for ADL training, transfers, strengthening, and safety education to improve level of function and allow safe return home Discharge Recommendations Plan/Recommendations: Continue POC Treatment Plan/Plan of Care Patient would benefit from OT for education, treatment and training to promote independence in ADL's, mobility, safety and/or upper extremity function for ADL' s. Plan of Care: ADL Retraining, Functional Mobility, UE Funct Exercise/Act Treatment Duration: Apr 23, 2017 Frequency: 5 times per week Estimated Hrs Per Day: .25 hour per day Agreement: Yes Rehab Potential: Fair Time/GCodes Start Time: 14:10 Stop Time: 14:27 Total Time Billed (hr/min): 17 Billed Treatment Time 1 visit, ADL(17minutes) JUSTIN GILL OT Apr 16, 2017 14:39
[2017-04-16] MEDS ORDERED: NS (IVPB) 250 ML ONE (20:31)
[2017-04-16] MEDS ORDERED: AZITHROMYCIN 500 MG (ZITHROMAX) VIAL ONE (20:31)
[2017-04-16] MEDS: AZITHROMYCIN 500 MG/NS 250 ML IVPB IV SCH ×2 (20:44)
[2017-04-16] MEDS: CEFEPIME 2 GM/NS 50 ML IVPB IV SCH ×2 (20:44)
[2017-04-17] VITALS: BP 155/75
[2017-04-17] MEDS: RT-ALBUTEROL/IPRATROPIUM 3 ML (DUONEB) VIAL INH SCH ×6 (02:52→22:10)
[2017-04-17 04:38] VITALS: BP 149/80
[2017-04-17 05:02] LABS: BASOPHILS % (AUTO) 0 % (0-10); EOSINOPHILS # (AUTO) 0.2 10^3/uL (0.0-0.3); EOSINOPHILS % (AUTO) 4 % (0-10); LYMPHOCYTES # (AUTO) 1.3 X 10^3 (1.0-4.0); LYMPHOCYTES % (AUTO) 24 % (12-44); MEAN CORPUSCULAR HEMOGLOBIN 29 PG (25-34); MEAN CORPUSCULAR HGB CONC 33 G/DL (32-36); MEAN CORPUSCULAR VOLUME 89 FL (80-99); MEAN PLATELET VOLUME 8.8 FL (7.4-10.4); MONOCYTES # (AUTO) 0.7 X 10^3 (0.0-1.0); MONOCYTES % (AUTO) 12 % (0-12); NEUTROPHILS # (AUTO) 3.2 X 10^3 (1.8-7.8); NEUTROPHILS % (AUTO) 60 % (42-75); PLATELET COUNT 216 10^3/uL (130-400); RED CELL DISTRIBUTION WIDTH 13.4 % (10.0-14.5); WHITE BLOOD COUNT 5.4 10^3/uL (4.3-11.0)
[2017-04-17 05:15] LABS: ALANINE AMINOTRANSFERASE 8 U/L (0-55); ALBUMIN 2.6 GM/DL (3.2-4.5); ANION GAP 9 MMOL/L (5-14); ASPARTATE AMINO TRANSFERASE 10 U/L (5-34); BILIRUBIN,TOTAL 0.4 MG/DL (0.1-1.0); BLOOD UREA NITROGEN 4 MG/DL (7-18); BUN/CREATININE RATIO 7; CARBON DIOXIDE 25 MMOL/L (21-32); CHLORIDE 108 MMOL/L (98-107); CREATININE SERUM 0.56 MG/DL (0.60-1.30); GFR ESTIMATED > 60; GLUCOSE 110 MG/DL (70-105); MAGNESIUM 1.5 MG/DL (1.8-2.4); PHOSPHORUS 3.4 MG/DL (2.3-4.7); SODIUM 142 MMOL/L (135-145); TOTAL PROTEIN 5.1 GM/DL (6.4-8.2)
[2017-04-17] MEDS: LACTOBACILLUS Acidoph/Bulgar (LACTINEX/FLORANEX) TAB PO SCH ×3 (05:38→17:14)
[2017-04-17] MEDS: KCL 20 MEQ TAB (K-DUR) PO SCH (05:39)
[2017-04-17 08:00] VITALS: BP 144/65
[2017-04-17] MEDS: FUROSEMIDE 40 MG/4 ML INJ (LASIX) IVP SCH (08:38)
[2017-04-17] MEDS: DILTIAZEM 180 MG (CARDIZEM CD) CAP PO SCH (08:38)
[2017-04-17] MEDS: FLUoxetine HCL 20 MG (PROzac) CAP PO SCH (08:38)
[2017-04-17] MEDS: GABAPENTIN 300 MG (NEURONTIN) CAP PO SCH (08:38)
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
[2017-04-17] MEDS ORDERED: ACETAMINOPHEN 500 MG TAB (TYLENOL) PO PRN (11:15)
--- NOTE | 2017-04-17 11:24 | Physical Therapy Daily Note ---
PT Daily Note-Current Subjective Pt in bed, agreeable. Mental Status Patient Orientation: Person, Place, Time, Situation Attachments: Oxygen, Pena Catheter, Other-See Comments (wound vac) Transfers Functional [place] Measure 0=Not Assessed/NA 4=Minimal Assistance 1=Total Assistance 5=Supervision or Setup 2=Maximal Assistance 6=Modified [place] 3=Moderate Assistance 7=Complete IndependenceIRFPAI Quality Coding Scale 6 Independent with activity with or without an assistive device 5 Patient requires set up or clean up by helper. Patient completes activity by themselves 4 Supervision or touching assist (CGA). [place] provide cues , steadying assist 3 The helper provides less than half the effort to complete the activity 2 The helper provides more than half the effort to complete the activity 1 Dependent. The helper does all the effort to complete an activity 7 Patient refused to complete or attempt activity 9 The patient did not perform the activity before the current illness or injury 88 Not attempted due to Medical conditions or safety concerns Transfers (B, C, W/C) (FIM): 6 Supine to/from Sit: 6 Sit to/from Stand: 6 Bed to/from Chair: 6 Weight Bearing Right Lower Extremity: Right Weight Bearing/Tolerated Left Lower Extremity: Left Weight Bearing/Tolerated Gait Training Gait (FIM): 5 Distance (FIM): 3=150 ft Distance: 500 Gait Level of Assist: 5 Gait Persons Needed: 1 Gait Assistive Device: FWW Pt ambulated with slow, steady gait. Assist required with O2 and wound vac only Treatments Ambulation with FWW. Returned to up in chair with O2 in situ. Assessment Current Status: Good Progress Pt tolerated well. Slow but safe functional mobility. PT Short Term Goals Short Term Goals Time Frame: Apr 21, 2017 Transfers (B,C,W/C) (FIM): 5 Gait (FIM): 5 Gait Distance Comment: 200' Gait Level of Assist: 5 Gait Assistive Device: FWW PT Plan Problem List Problem List: Activity Tolerance, Functional Strength, Balance, Gait, Transfer , Bed Mobility Treatment/Plan Treatment Plan: Continue Plan of Care Treatment Plan: Bed Mobility, Education, Functional Activity [place], Functional Strength, Gait, Safety, Therapeutic Exercise, Transfers Treatment Duration: Apr 21, 2017 Frequency: 6 times per week Estimated Hrs Per Day: .25 hour per day (15-30') Patient and/or Family Agrees t: Yes Time/GCodes Time In: 0925 Time Out: 0948 Total Billed Treatment Time: 23 Total Billed Treatment 1, FA x 23' G Codes Necessary: LATRICIA Camargo DPT Apr 17, 2017 11:24
[2017-04-17 12:00] VITALS: BP 118/59
--- NOTE | 2017-04-17 12:28 | Diagnostic Imaging Report ---
EXAMINATION: Abdominal radiographs, single view. DATE: 04/17/2017. CLINICAL INDICATION: 76-year-old female, abdominal pain. COMPARISON: None. COMMENTS: There are right upper quadrant surgical clips. The upper abdomen is not entirely included in the [id number]. There are sutures in the mid to left lower abdomen. There are no abnormally distended gas-filled segments of small or large bowel. There is no identified free intraperitoneal air on limited supine examination. There is no identified pneumatosis. There is a catheter projecting over the midline lower abdomen/upper pelvis. IMPRESSION: 1. Unremarkable bowel gas pattern. 2. Incomplete imaging of the upper abdomen. Dictated by: Dictated on workstation # [id number]
[2017-04-17] MEDS: ENOXAPARIN 40 MG/0.4 ML (LOVENOX) SYR SC SCH (12:52)
[2017-04-17] MEDS: MAGNESIUM 1 GM/100 ML IVPB 100 ML IV SCH ×2 (13:02→14:17)
[2017-04-17 15:24] VITALS: BP 119/67
[2017-04-17 19:20] VITALS: BP 132/69
[2017-04-17] MEDS: CEFEPIME 2 GM/NS 50 ML IVPB IV SCH ×2 (21:00)
[2017-04-18] VITALS: BP 149/66
[2017-04-18] MEDS: RT-ALBUTEROL/IPRATROPIUM 3 ML (DUONEB) VIAL INH SCH ×6 (02:20→21:52)
[2017-04-18 06:36] LABS: BASOPHILS % (AUTO) 1 % (0-10); EOSINOPHILS # (AUTO) 0.2 10^3/uL (0.0-0.3); EOSINOPHILS % (AUTO) 4 % (0-10); LYMPHOCYTES # (AUTO) 1.5 X 10^3 (1.0-4.0); LYMPHOCYTES % (AUTO) 26 % (12-44); MEAN CORPUSCULAR HEMOGLOBIN 29 PG (25-34); MEAN CORPUSCULAR HGB CONC 34 G/DL (32-36); MEAN CORPUSCULAR VOLUME 87 FL (80-99); MEAN PLATELET VOLUME 8.8 FL (7.4-10.4); MONOCYTES # (AUTO) 0.7 X 10^3 (0.0-1.0); MONOCYTES % (AUTO) 12 % (0-12); NEUTROPHILS # (AUTO) 3.2 X 10^3 (1.8-7.8); NEUTROPHILS % (AUTO) 57 % (42-75); PLATELET COUNT 282 10^3/uL (130-400); RED BLOOD COUNT 3.78 10^6/uL (4.35-5.85); RED CELL DISTRIBUTION WIDTH 13.2 % (10.0-14.5); WHITE BLOOD COUNT 5.6 10^3/uL (4.3-11.0)
[2017-04-18] MEDS: KCL 20 MEQ TAB (K-DUR) PO SCH (06:37)
[2017-04-18] MEDS: LACTOBACILLUS Acidoph/Bulgar (LACTINEX/FLORANEX) TAB PO SCH ×3 (06:37→16:36)
[2017-04-18 06:56] LABS: ALANINE AMINOTRANSFERASE 10 U/L (0-55); ALBUMIN 3.2 GM/DL (3.2-4.5); ANION GAP 9 MMOL/L (5-14); ASPARTATE AMINO TRANSFERASE 11 U/L (5-34); BILIRUBIN,TOTAL 0.5 MG/DL (0.1-1.0); BLOOD UREA NITROGEN 5 MG/DL (7-18); BUN/CREATININE RATIO 8; CALCIUM 8.7 MG/DL (8.5-10.1); CARBON DIOXIDE 27 MMOL/L (21-32); CHLORIDE 104 MMOL/L (98-107); CREATININE SERUM 0.63 MG/DL (0.60-1.30); GFR ESTIMATED > 60; GLUCOSE 93 MG/DL (70-105); PHOSPHORUS 3.2 MG/DL (2.3-4.7); POTASSIUM 4.6 MMOL/L (3.6-5.0); SODIUM 140 MMOL/L (135-145); TOTAL PROTEIN 6.2 GM/DL (6.4-8.2)
[2017-04-18 07:31] VITALS: BP 149/66
[2017-04-18 08:00] VITALS: BP 161/70
[2017-04-18] MEDS: FLUoxetine HCL 20 MG (PROzac) CAP PO SCH (08:15)
[2017-04-18] MEDS: GABAPENTIN 300 MG (NEURONTIN) CAP PO SCH (08:15)
[2017-04-18] MEDS: DILTIAZEM 180 MG (CARDIZEM CD) CAP PO SCH (08:15)
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
[2017-04-18] MEDS: ENOXAPARIN 40 MG/0.4 ML (LOVENOX) SYR SC SCH (11:32)
[2017-04-18 15:28] VITALS: BP 137/67
[2017-04-18] MEDS: CEFDINIR 300 MG (OMNICEF) CAP PO SCH (21:30)
[2017-04-18 23:49] VITALS: BP 166/83
[2017-04-19] MEDS: RT-ALBUTEROL/IPRATROPIUM 3 ML (DUONEB) VIAL INH SCH ×3 (05:29→10:52)
[2017-04-19] MEDS: KCL 20 MEQ TAB (K-DUR) PO SCH (06:42)
[2017-04-19] MEDS: LACTOBACILLUS Acidoph/Bulgar (LACTINEX/FLORANEX) TAB PO SCH ×2 (06:43→11:27)
[2017-04-19 07:28] LABS: FERRITIN 100.1 ng/mL (15.0-150.0)
[2017-04-19] MEDS ORDERED: KCL 20 MEQ TAB (K-DUR) PO NR (07:30)
[2017-04-19] MEDS ORDERED: FUROSEMIDE 40 MG/4 ML INJ (LASIX) IVP NR (07:30)
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
[2017-04-19 08:00] VITALS: BP 138/65
[2017-04-19] MEDS ORDERED: FUROSEMIDE 40 MG (LASIX) TAB PO NR (08:15)
[2017-04-19] MEDS: DILTIAZEM 180 MG (CARDIZEM CD) CAP PO SCH (09:17)
[2017-04-19] MEDS: GABAPENTIN 300 MG (NEURONTIN) CAP PO SCH (09:17)
[2017-04-19] MEDS: CEFDINIR 300 MG (OMNICEF) CAP PO SCH (09:17)
[2017-04-19] MEDS: FLUoxetine HCL 20 MG (PROzac) CAP PO SCH (09:17)
[2017-04-19] MEDS: ENOXAPARIN 40 MG/0.4 ML (LOVENOX) SYR SC SCH (11:27)
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
== END 2017-04-19 13:08 | DRG 871 ==
LOC: EDUNIT# 15:06 → ER 15:08 → ICU 19:20 → 4TH 04-16 13:11
PROVIDERS: ADMIT Family Medicine; ATTEND Family Medicine
PROC: 02HV33Z Insertion of Infusion Device into Superior Vena Cava, Percutaneous Approach (ICD-10-PCS; 2017-04-12)
PROC: 0W9B3ZZ Drainage of Left Pleural Cavity, Percutaneous Approach (ICD-10-PCS; principal; 2017-04-13)
DX: A41.9 Sepsis, unspecified organism (principal); R65.20 Severe sepsis without septic shock; J18.9 Pneumonia, unspecified organism; J90 Pleural effusion, not elsewhere classified; R06.03 Acute respiratory distress; J81.1 Chronic pulmonary edema; S22.42XA Multiple fractures of ribs, left side, initial encounter for closed fracture; S22.009A Unspecified fracture of unspecified thoracic vertebra, initial encounter for closed fracture; G72.81 Critical illness myopathy; E87.6 Hypokalemia; E83.42 Hypomagnesemia; D64.9 Anemia, unspecified; R19.7 Diarrhea, unspecified; F41.9 Anxiety disorder, unspecified; I34.1 Nonrheumatic mitral (valve) prolapse; I48.91 Unspecified atrial fibrillation; R10.84 Generalized abdominal pain; R32 Unspecified urinary incontinence; M17.11 Unilateral primary osteoarthritis, right knee; V89.9XXA Person injured in unspecified vehicle accident, initial encounter; Z87.891 Personal history of nicotine dependence; Z90.49 Acquired absence of other specified parts of digestive tract; Z85.038 Personal history of other malignant neoplasm of large intestine; Z93.4 Other artificial openings of gastrointestinal tract status
CPT/HCPCS: 36415; 70450; 71010; 71275; 74000; 80053; 80202; 81000; 82728; 82945; 83540; 83605; 83615; 83735; 83880; 83986; 84100; 84157; 85007; 85025; 85027; 85610; 85730; 87040; 87070; 87081; 87088; 87116; 87205; 87324; 87449; 87804; 87899; 88112; 88305; 89051; 94640; 94760; 96361; 96365; 96375

== ENCOUNTER 2017-04-19 11:15 | Inpatient (IN) | payer MEDICARE ==
[~2017-04-19] VITALS: Ht 162.6 cm; Wt 67.3 kg
[~2017-04-19 11:15] MED LIST changes: +CALC-6 PO; +FENT1PAT57 TD
[2017-04-19] MEDS ORDERED: oxyCODONE/APAP 5/325MG (PERCOCET 5) TABLET PO PRN (13:30)
[2017-04-19] MEDS ORDERED: RT-ALBUTEROL/IPRATROPIUM 3 ML (DUONEB) VIAL INH PRN (13:45)
[2017-04-19] MEDS ORDERED: LIDOCAINE 1% INJ 20 ML (XYLOCAINE) VIAL INJ PRN (13:45)
[2017-04-19] MEDS ORDERED: ALPRAZolam 0.25 MG (XANAX) TAB PO PRN (13:45)
[2017-04-19] MEDS ORDERED: ACETAMINOPHEN 500 MG TAB (TYLENOL) PO PRN (13:45)
[2017-04-19 14:00] VITALS: BP 104/56
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
--- NOTE | 2017-04-19 14:56 | Physical Therapy Daily Note ---
PT Daily Note-Current Subjective Agreeable to work with this PT. Reports she is tired. Reports she has no appetite and knows she needs to be eating better. No complaints of pain at this time. Transfers Functional [place] Measure 0=Not Assessed/NA 4=Minimal Assistance 1=Total Assistance 5=Supervision or Setup 2=Maximal Assistance 6=Modified [place] 3=Moderate Assistance 7=Complete IndependenceIRFPAI Quality Coding Scale 6 Independent with activity with or without an assistive device 5 Patient requires set up or clean up by helper. Patient completes activity by themselves 4 Supervision or touching assist (CGA). [place] provide cues , steadying assist 3 The helper provides less than half the effort to complete the activity 2 The helper provides more than half the effort to complete the activity 1 Dependent. The helper does all the effort to complete an activity 7 Patient refused to complete or attempt activity 9 The patient did not perform the activity before the current illness or injury 88 Not attempted due to Medical conditions or safety concerns Car Transfer (QC): 4 (cues for sequencing; CGA for safety) Weight Bearing Right Lower Extremity: Right Full Weight Bearing Left Lower Extremity: Left Full Weight Bearing Gait Training Does the Patient Walk?: Yes Gait (FIM): 4 Distance (FIM): 3=150 ft Gait Assistive Device: FWW CGA and skilled cues for safety. Reports of feeling unsteady, provided education on safety with walker. Stair Training Stairs (FIM): 2 #of Steps: 4 1 Step (curb) (QC): 4 (CGA for safety) 4 Steps (QC): 4 (Slow, 1 step at a time; unsteady with descending stairs. ) 12 Steps (QC): 88 (unsafe to attempt due to functional weakness) Stairs: Pattern: Step to uses B handrails for stairs. Balance Picking up an Object (QC): 88 (back precautions limit bending forward. ) Treatments Co treat with OT; spend much time reviewing PT/OT goals and how they work together with each addressing the specific discipline; Worked together on gait and stairs to address proper back care as well as safety in a variety of situations of mobility. OT provided skilled education as PT provided assist with mobility. Addressed UE strength needs as well. Reviewed home set up with patient with OT present and discussed needs in her home and safety. Assessment Recent admit to this unit. Pt presents with decreased funcitonal mobility skills and decreased tolerance to functional activity. Pt benefitted from co treat this pm to address self care and mobility needs together for comprehensive care and progression. PT Cassandra Developer Goals Cassandra Developer Goals PT Cassandra Developer Goals Time Frame: May 14, 2017 Transfers (B,C,W/C) (FIM): 6 Sit to Lying (QC): 6 Lying-Sitting on Side/Bed(QC): 6 Sit to Stand (QC): 6 Rollin Roll Left to Right (QC): 6 Chair/Bag-kx-Bbpbq Xfer(QC): 6 Car Transfer (QC): 6 Does the Patient Walk: Yes Gait (FIM): 6 Gait distance (FIM): 3=150 ft Distance: >300' Walk 10 feet (QC): 6 Walk 10ft-Uneven Surface(QC): 6 Walk 50ft with 2 Turns (QC): 6 Walk 150 ft (QC): 6 Gait Level of Assist: 6 Gait Assistive Device: FWW Stairs (FIM): 6 # of Steps: 12 1 Step (curb) (QC): 6 4 Steps (QC): 6 12 Steps (QC): 6 Stairs Level Of Assist: 6 Picking up an Object (QC): 6 PT Plan Problem List Problem List: Activity Tolerance, Functional Strength, Safety, Balance, Gait, Transfer Treatment/Plan Treatment Plan: Continue Plan of Care Treatment Plan: Bed Mobility, Concurrent Therapy, Education, Functional Activity [place], Functional Strength, Group Therapy, Gait, Safety, Therapeutic Exercise, Transfers Treatment Duration: May 14, 2017 Frequency: At least 5 of 7 days/Wk (IRF) Estimated Hrs Per Day: 1.5 hours per day Patient and/or Family Agrees t: Yes Safety Risks/Education Patient Education: Reviewed Precautions, Safety Issues Teaching Recipient: Patient Teaching Methods: Demonstration, Discussion Response to Teaching: Reinforcement Needed Discharge Recommendations Therapy D/C Recommendations: Physical Therapy Home Care Time/GCodes Time In: 1355 Time Out: 1445 Total Billed Treatment Time: 50 Total Billed Treatment visit FA 50 ITALIA RUTHERFORD PT Apr 19, 2017 14:56
--- NOTE | 2017-04-19 15:18 | Physical Therapy Daily Note ---
PT Daily Note-Current Subjective Patient has no c/o. Pain Numeric Pain Scale: 0-No Pain Location: No Pain Reported Mental Status Patient Orientation: Normal For Age abdominal wound vac Transfers Functional [place] Measure 0=Not Assessed/NA 4=Minimal Assistance 1=Total Assistance 5=Supervision or Setup 2=Maximal Assistance 6=Modified [place] 3=Moderate Assistance 7=Complete IndependenceIRFPAI Quality Coding Scale 6 Independent with activity with or without an assistive device 5 Patient requires set up or clean up by helper. Patient completes activity by themselves 4 Supervision or touching assist (CGA). [place] provide cues , steadying assist 3 The helper provides less than half the effort to complete the activity 2 The helper provides more than half the effort to complete the activity 1 Dependent. The helper does all the effort to complete an activity 7 Patient refused to complete or attempt activity 9 The patient did not perform the activity before the current illness or injury 88 Not attempted due to Medical conditions or safety concerns Transfers (B, C, W/C) (FIM): 5 Scootin Sit to/from Stand: 5 Sit to Stand (QC): 5 Car Transfer (QC): 5 Weight Bearing Right Lower Extremity: Right Full Weight Bearing Left Lower Extremity: Left Full Weight Bearing Gait Training Does the Patient Walk?: Yes Gait (FIM): 5 Distance (FIM): 3=150 ft Distance: 150' x 2 Walk 10 feet (QC): 5 Walk 50 ft with 2 Turns(QC): 5 Walk 150 ft (QC): 5 Gait Level of Assist: 5 Gait Assistive Device: FWW skilled instruction for body placement in FWW due to patient increase in fatigue with increase in activity Exercises NuStep Minutes: 15 NuStep Workload: 4 (to improve cardiopulmonary function) Assessment Patient requires time to complete all functional tasks. Continues to be limited with functional activity due to deconditioned state. PT Penitentiary Goals Penitentiary Goals PT Penitentiary Goals Time Frame: May 14, 2017 Transfers (B,C,W/C) (FIM): 6 Sit to Lying (QC): 6 Lying-Sitting on Side/Bed(QC): 6 Sit to Stand (QC): 6 Rollin Roll Left to Right (QC): 6 Chair/Qtm-zo-Domfk Xfer(QC): 6 Car Transfer (QC): 6 Does the Patient Walk: Yes Gait (FIM): 6 Gait distance (FIM): 3=150 ft Distance: >300' Walk 10 feet (QC): 6 Walk 10ft-Uneven Surface(QC): 6 Walk 50ft with 2 Turns (QC): 6 Walk 150 ft (QC): 6 Gait Level of Assist: 6 Gait Assistive Device: FWW Stairs (FIM): 6 # of Steps: 12 1 Step (curb) (QC): 6 4 Steps (QC): 6 12 Steps (QC): 6 Stairs Level Of Assist: 6 Picking up an Object (QC): 6 PT Plan Treatment/Plan Treatment Plan: Continue Plan of Care Treatment Plan: Bed Mobility, Concurrent Therapy, Education, Functional Activity [place], Functional Strength, Group Therapy, Gait, Safety, Therapeutic Exercise, Transfers Treatment Duration: May 14, 2017 Frequency: At least 5 of 7 days/Wk (IRF) Estimated Hrs Per Day: 1.5 hours per day Patient and/or Family Agrees t: Yes Time/GCodes Time In: 1445 Time Out: 1515 Total Billed Treatment Time: 30 Total Billed Treatment 1 visit EX 15 min GT 15 min TAYLOR WOMACK PT Apr 19, 2017 15:18
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
[2017-04-19] MEDS: OMEGA 3 (FISH OIL) 1000 MG CAP PO SCH (16:51)
[2017-04-19] MEDS: LACTOBACILLUS Acidoph/Bulgar (LACTINEX/FLORANEX) TAB PO SCH (16:51)
[2017-04-19 18:00] VITALS: BP 129/71
[2017-04-19] MEDS: RT-ALBUTEROL/IPRATROPIUM 3 ML (DUONEB) VIAL INH SCH ×2 (18:10→22:03)
[2017-04-19 19:55] VITALS: BP 129/71
[2017-04-19] MEDS: CEFDINIR 300 MG (OMNICEF) CAP PO SCH (20:38)
[2017-04-20] MEDS: RT-ALBUTEROL/IPRATROPIUM 3 ML (DUONEB) VIAL INH SCH ×5 (01:43→19:19)
[2017-04-20 06:14] LABS: BASOPHILS % (AUTO) 1 % (0-10); EOSINOPHILS # (AUTO) 0.2 10^3/uL (0.0-0.3); EOSINOPHILS % (AUTO) 3 % (0-10); LYMPHOCYTES # (AUTO) 1.9 X 10^3 (1.0-4.0); LYMPHOCYTES % (AUTO) 30 % (12-44); MEAN CORPUSCULAR HEMOGLOBIN 29 PG (25-34); MEAN CORPUSCULAR HGB CONC 33 G/DL (32-36); MEAN CORPUSCULAR VOLUME 88 FL (80-99); MEAN PLATELET VOLUME 9.7 FL (7.4-10.4); MONOCYTES # (AUTO) 0.8 X 10^3 (0.0-1.0); MONOCYTES % (AUTO) 12 % (0-12); NEUTROPHILS # (AUTO) 3.4 X 10^3 (1.8-7.8); NEUTROPHILS % (AUTO) 55 % (42-75); PLATELET COUNT 109 10^3/uL (130-400); RED BLOOD COUNT 3.88 10^6/uL (4.35-5.85); RED CELL DISTRIBUTION WIDTH 13.5 % (10.0-14.5); WHITE BLOOD COUNT 6.2 10^3/uL (4.3-11.0)
[2017-04-20 06:37] VITALS: BP 156/74
[2017-04-20 06:38] LABS: BAND NEUTROPHILS 0 %; BASOPHILS % (MANUAL) 0 %; EOSINOPHILS % (MANUAL) 5 %; LYMPHOCYTES % (MANUAL) 20 %; NEUTROPHILS % (MANUAL) 58 %; POLYCHROMASIA SLIGHT; REACTIVE LYMPHOCYTES 6 %
[2017-04-20 06:39] LABS: ANISOCYTOSIS SLIGHT
[2017-04-20 06:40] LABS: ANION GAP 14 MMOL/L (5-14); BLOOD UREA NITROGEN 4 MG/DL (7-18); BUN/CREATININE RATIO 6; CALCIUM 8.7 MG/DL (8.5-10.1); CARBON DIOXIDE 20 MMOL/L (21-32); CHLORIDE 104 MMOL/L (98-107); CREATININE SERUM 0.69 MG/DL (0.60-1.30); GFR ESTIMATED > 60; GLUCOSE 100 MG/DL (70-105); POTASSIUM 4.8 MMOL/L (3.6-5.0); SODIUM 138 MMOL/L (135-145)
[2017-04-20] MEDS: MULTIVIT W/MINERALS TAB (THERAGRAN M) PO SCH (06:48)
[2017-04-20] MEDS: LACTOBACILLUS Acidoph/Bulgar (LACTINEX/FLORANEX) TAB PO SCH ×3 (06:48→17:37)
[2017-04-20] MEDS: KCL 20 MEQ TAB (K-DUR) PO SCH (06:48)
[2017-04-20] MEDS: OMEGA 3 (FISH OIL) 1000 MG CAP PO SCH ×2 (06:48→17:37)
[2017-04-20] MEDS: CALCIUM CARB + VIT D 600 MG (CALCARB + D) TAB PO SCH (06:48)
[2017-04-20] MEDS: CEFDINIR 300 MG (OMNICEF) CAP PO SCH ×2 (09:14→20:54)
[2017-04-20] MEDS: DILTIAZEM 180 MG (CARDIZEM CD) CAP PO SCH (09:15)
[2017-04-20] MEDS: FLUoxetine HCL 20 MG (PROzac) CAP PO SCH (09:15)
[2017-04-20] MEDS: GABAPENTIN 300 MG (NEURONTIN) CAP PO SCH (09:15)
--- NOTE | 2017-04-20 09:27 | Occupational Ther Daily Note ---
OT Current Status-Daily Note Subjective Pt sitting in chair, agrees to treatment. Pt states she really only has pain when she takes a deep breath. Mental Status/Objective Functional [place] Measure 0=Not Assessed/NA 4=Minimal Assistance 1=Total Assistance 5=Supervision or Setup 2=Maximal Assistance 6=Modified [place] 3=Moderate Assistance 7=Complete [place] Attachments: Other-See Comments (wound vac) ADL-Treatment Pt has already completed grooming and dressing tasks this morning prior to therapy session. Functional [place] Measure 0=Not Assessed/NA 4=Minimal Assistance 1=Total Assistance 5=Supervision or Setup 2=Maximal Assistance 6=Modified [place] 3=Moderate Assistance 7=Complete IndependenceIRFPAI Quality Coding Scale 6 Independent with activity with or without an assistive device 5 Patient requires set up or clean up by helper. Patient completes activity by themselves 4 Supervision or touching assist (CGA). [place] provide cues , steadying assist 3 The helper provides less than half the effort to complete the activity 2 The helper provides more than half the effort to complete the activity 1 Dependent. The helper does all the effort to complete an activity 7 Patient refused to complete or attempt activity 9 The patient did not perform the activity before the current illness or injury 88 Not attempted due to Medical conditions or safety concerns Other Treatment Pt donned LSO with set up. Sit to stand with supervision. Gait to therapy gym with FWW, no LOB noted. Assist to manage wound vac. Pt ambulates with slow pace. Arm bike [id number] to increase overall activity tolerance needed for functional tasks. Pt completed activity with minimal resistance and slow pace. No rest breaks needed. Pt completed tabletop peg activity with bilateral UE to increase activity tolerance and coordination/manipulation skills. Pt states her right hand still feels a little weak, but she is able to complete task without assistance. Pt completed fine motor task with nuts and bolts to increase coordination. Pt performed bilateral UE exercises to increase strength and activity tolerance needed for ADLs and transfers. Pt performed four exercises x15 reps with dowel meryl. Rest breaks between exercises. Graded clothespin activity with bilateral hands to increase sanitation laborer/pinch strength. Pt has mildly decreased strength in right hand, but is able to complete task. Putty activity with bilateral hands to increase strength. Pt removed small beads from putty without difficulty. Pt returned to room, sitting in chair with needs met after session. OT Short Term Goals Short Term Goals 1=Demonstrate adherence to instructed precautions during ADL tasks. 2=Patient will verbalize/demonstrate understanding of assistive devices/ modifications for ADL. 3=Patient will improve strength/tolerance for activity to enable patient to perform ADL's. OT Tap And Die Maker Technician Goals Detention Goals Time Frame: May 03, 2017 Eating (FIM): 6 Eating (QC): 6 Groomin Oral Hygiene (QC): 6 Bathing(FIM): 6 Shower/Bathe Self (QC): 6 Upper Body Dressing(FIM): 6 Upper Body Dressing (QC): 6 Lower Body Dressing(FIM): 6 Lower Body Dressing (QC): 6 On/Off Footwear (QC): 6 Toileting(FIM): 6 Toileting Hygiene (QC): 6 Transfers (B,C,W/C) (FIM): 6 Toilet/Commode Transfer(FIM): 6 Toilet/Commode Transfer (QC): 6 Shower Transfer(FIM): 6 Additional Goals: 1-Demonstrate ADL Tasks, 2-Verbalize Understanding, 3- ImproveStrength/[place] 1=Demonstrate adherence to instructed precautions during ADL tasks. 2=Patient will verbalize/demonstrate understanding of assistive devices/ modifications for ADL. 3=Patient will improve strength/tolerance for activity to enable patient to perform ADL's. OT Education/Plan Discharge Recommendations Plan/Recommendations: Continue POC Treatment Plan/Plan of Care Patient would benefit from OT for education, treatment and training to promote independence in ADL's, mobility, safety and/or upper extremity function for ADL' s. Plan of Care: ADL Retraining, Functional Mobility, UE Funct Exercise/Act Treatment Duration: May 03, 2017 Frequency: At least 5 of 7 days/Wk (IRF) Estimated Hrs Per Day: 1.5 hours per day Agreement: Yes Rehab Potential: Good Time/GCodes Start Time: 08:00 Stop Time: 09:15 Total Time Billed (hr/min): 75 Billed Treatment Time 1 visit, FAx2(30minutes), EXx3(45minutes) JUSTIN GILL OT Apr 20, 2017 09:27
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
--- NOTE | 2017-04-20 10:17 | Physical Therapy Daily Note ---
PT Daily Note-Current Subjective Pt sitting in recliner after just finishing with OT. Pt agrees to PT. Mental Status Patient Orientation: Person, Place, Time, Situation Attachments: Other-See Comments (Wound Vac) Transfers Functional [place] Measure 0=Not Assessed/NA 4=Minimal Assistance 1=Total Assistance 5=Supervision or Setup 2=Maximal Assistance 6=Modified [place] 3=Moderate Assistance 7=Complete IndependenceIRFPAI Quality Coding Scale 6 Independent with activity with or without an assistive device 5 Patient requires set up or clean up by helper. Patient completes activity by themselves 4 Supervision or touching assist (CGA). [place] provide cues , steadying assist 3 The helper provides less than half the effort to complete the activity 2 The helper provides more than half the effort to complete the activity 1 Dependent. The helper does all the effort to complete an activity 7 Patient refused to complete or attempt activity 9 The patient did not perform the activity before the current illness or injury 88 Not attempted due to Medical conditions or safety concerns Weight Bearing Right Lower Extremity: Right Full Weight Bearing Left Lower Extremity: Left Full Weight Bearing Exercises Seated Therapy Exercises: Ankle pumps, Long arc quads, Hip flexion, Kicking activity, Hip abd/add Seated Reps: 20 Treatments Pt discussed with PT what PT had planned for tx and the direction tx would take between now and discharge. Pt reported not feeling confident in herself since returning to hospital and feels fatigued. PT explained this is normal but tx will get easier as she gets stronger and what EX and tx will help. Pt completes Seated Ex in recliner. Pt rests at end of tx with Speech arriving for tx, all needs are met. Assessment Current Status: Good Progress Pt able to complete Seated Ex well. Pt feels better knowing the direction we will be heading with PT. PT District Administrative Assistant Goals District Administrative Assistant Goals PT Fdc Goals Time Frame: May 14, 2017 Transfers (B,C,W/C) (FIM): 6 Sit to Lying (QC): 6 Lying-Sitting on Side/Bed(QC): 6 Sit to Stand (QC): 6 Rollin Roll Left to Right (QC): 6 Chair/Msn-gs-Xlegu Xfer(QC): 6 Car Transfer (QC): 6 Does the Patient Walk: Yes Gait (FIM): 6 Gait distance (FIM): 3=150 ft Distance: >300' Walk 10 feet (QC): 6 Walk 10ft-Uneven Surface(QC): 6 Walk 50ft with 2 Turns (QC): 6 Walk 150 ft (QC): 6 Gait Level of Assist: 6 Gait Assistive Device: FWW Stairs (FIM): 6 # of Steps: 12 1 Step (curb) (QC): 6 4 Steps (QC): 6 12 Steps (QC): 6 Stairs Level Of Assist: 6 Picking up an Object (QC): 6 PT Plan Problem List Problem List: Activity Tolerance, Functional Strength, Gait Treatment/Plan Treatment Plan: Continue Plan of Care Treatment Plan: Bed Mobility, Concurrent Therapy, Education, Functional Activity [place], Functional Strength, Group Therapy, Gait, Safety, Therapeutic Exercise, Transfers Treatment Duration: May 14, 2017 Frequency: At least 5 of 7 days/Wk (IRF) Estimated Hrs Per Day: 1.5 hours per day Patient and/or Family Agrees t: Yes Safety Risks/Education Patient Education: Correct Positioning, Safety Issues Teaching Recipient: Patient Teaching Methods: Discussion Response to Teaching: Verbalize Understanding Time/GCodes Time In: 915 Time Out: 1000 Total Billed Treatment Time: 45 Total Billed Treatment 1, FA x2 (25m) & EX (20m) IMAN WHEELER MEDICAL TECH Apr 20, 2017 10:17
--- NOTE | 2017-04-20 11:30 | Occupational Ther Daily Note ---
OT Current Status-Daily Note Subjective Pt sitting in chair, agrees to treatment. Mental Status/Objective Functional [place] Measure 0=Not Assessed/NA 4=Minimal Assistance 1=Total Assistance 5=Supervision or Setup 2=Maximal Assistance 6=Modified [place] 3=Moderate Assistance 7=Complete [place] ADL-Treatment Functional [place] Measure 0=Not Assessed/NA 4=Minimal Assistance 1=Total Assistance 5=Supervision or Setup 2=Maximal Assistance 6=Modified [place] 3=Moderate Assistance 7=Complete IndependenceIRFPAI Quality Coding Scale 6 Independent with activity with or without an assistive device 5 Patient requires set up or clean up by helper. Patient completes activity by themselves 4 Supervision or touching assist (CGA). Tiff provide cues , steadying assist 3 The helper provides less than half the effort to complete the activity 2 The helper provides more than half the effort to complete the activity 1 Dependent. The helper does all the effort to complete an activity 7 Patient refused to complete or attempt activity 9 The patient did not perform the activity before the current illness or injury 88 Not attempted due to Medical conditions or safety concerns Other Treatment Pt sit to stand with supervision. Gait to therapy gym with slow pace with FWW. Pt completed bilateral UE activity with arm arc on lowest setting to increase UE activity tolerance. Pt able to complete task with occasional rest breaks. Pt returned to room with FWW, transferred to chair with SBA. Pt states she does not have any increased pain with activity. Pt sitting in chair with needs met after session. OT Short Term Goals Short Term Goals 1=Demonstrate adherence to instructed precautions during ADL tasks. 2=Patient will verbalize/demonstrate understanding of assistive devices/ modifications for ADL. 3=Patient will improve strength/tolerance for activity to enable patient to perform ADL's. OT Intermediate Goals Intermediate Goals Time Frame: May 03, 2017 Eating (FIM): 6 Eating (QC): 6 Groomin Oral Hygiene (QC): 6 Bathing(FIM): 6 Shower/Bathe Self (QC): 6 Upper Body Dressing(FIM): 6 Upper Body Dressing (QC): 6 Lower Body Dressing(FIM): 6 Lower Body Dressing (QC): 6 On/Off Footwear (QC): 6 Toileting(FIM): 6 Toileting Hygiene (QC): 6 Transfers (B,C,W/C) (FIM): 6 Toilet/Commode Transfer(FIM): 6 Toilet/Commode Transfer (QC): 6 Shower Transfer(FIM): 6 Additional Goals: 1-Demonstrate ADL Tasks, 2-Verbalize Understanding, 3- ImproveStrength/[place] 1=Demonstrate adherence to instructed precautions during ADL tasks. 2=Patient will verbalize/demonstrate understanding of assistive devices/ modifications for ADL. 3=Patient will improve strength/tolerance for activity to enable patient to perform ADL's. OT Education/Plan Discharge Recommendations Plan/Recommendations: Continue POC Treatment Plan/Plan of Care Patient would benefit from OT for education, treatment and training to promote independence in ADL's, mobility, safety and/or upper extremity function for ADL' s. Plan of Care: ADL Retraining, Functional Mobility, UE Funct Exercise/Act Treatment Duration: May 03, 2017 Frequency: At least 5 of 7 days/Wk (IRF) Estimated Hrs Per Day: 1.5 hours per day Agreement: Yes Rehab Potential: Good Time/GCodes Start Time: 10:50 Stop Time: 11:05 Total Time Billed (hr/min): 15 Billed Treatment Time 1 visit, FA(15minutes) JUSTIN GILL OT Apr 20, 2017 11:29
[2017-04-20] MEDS: ENOXAPARIN 40 MG/0.4 ML (LOVENOX) SYR SC SCH (11:44)
--- NOTE | 2017-04-20 13:10 | ST Cognitive Linguistic Eval ---
Speech Evaluation-General Medical Diagnosis pleural effusion Onset Date: Apr 12, 2017 Therapy Diagnosis Therapy Diagnosis: Cognitive Linguistic Skills WNL Precautions Precautions/Isolations: Fall Prevention, Standard Precautions Referral Referring Physician: Dr. Efrain Travis Reason for Referral: Evaluation/Treatment Cognitive Evaluation Medical History Pertinent Medical History: Atrial Fib, Arthritis Reviewed History: Yes Social History Current Living Status: Spouse Speech PLF-Current Status Prior Level of Function The patient denied prior challenges with speech, language, or cognition. Subjective The patient was recently admitted to [facility] following a diagnosis of pleural effusion. The patient greeted the clinician appropriately and was agreeable to participation in the cognitive evaluation. Language Eval: Auditory Comprehends Simple Yes/No Ques: Functional Indent/Objects Multiple [place]: Functional Ident/Pics in Multiple [place]: Functional Follows 1-Step Commands: Functional Follows Complex Directions: Functional Follows General Conversations: Functional Language Eval: Verbal Language Completes Spontaneous Greeting: Functional Produces Auto, Serial Info: Functional Imitates Simple Words/Phrases: Functional Word Finding: Functional Requests Basic Needs: Functional States Basic Personal Info: Functional Expresses Complex Ideas: Functional Cognitive Patient Orientation The patient was independently oriented to self, location, month, day of week, and year. Objective Cognitive Domain Attention: WNL Memory: WNL Problem Solving: Functional Executive Functions: WNL Objective Impression The patient displayed cognitive linguistic skills WNL and appropriate for completion of ADL's. Communication/Social Cognition Comprehension: 6 Expression: 6 Social Interaction: 6 Problem Solvin Memory: 6 Speech Patient Assess Expression of Ideas/Wants: Expression (4) Understanding [place] Content: Understands (4) Brief Interview-Mental Status: Yes Repetition of Three Words: Three (3) Temporal Orientation: Year: Correct (3) Temporal Orientation: Month: Accurate within 5 days(2) Temporal Orientation: Day: Correct (1) Recall : Wear to say "Sock": Yes, no cue required (2) Recall : Color: Yes, no cue required (2) Recall : Bed: Yes, no cue required (2) Speech-Plan Treatment Plan Speech Therapy Treatment Plan: Discontinue ST Evaluation, only. Frequency: Modified Program (IRF) Estimated Hrs Per Day: Other Rehab Potential: Good Safety Risks/Education Teaching Recipient: Patient Teaching Methods: Discussion Response to Teaching: Verbalize Understanding Education Topics Provided: Results, Recommendations, Plan of Care Time Speech Therapy Time In: 10:00 Speech Therapy Time Out: 10:15 Total Billed Time: 15 Billed Treatment Time 1, KRYSTA HAND Apr 20, 2017 13:10
--- NOTE | 2017-04-20 14:25 | Physical Therapy Daily Note ---
PT Daily Note-Current Subjective Pt is sitting in recliner upon arrival. Pt agrees to PT. Pain Location: No Pain Reported Mental Status Patient Orientation: Person, Place, Time, Situation Attachments: Other-See Comments (Wound Vac) Transfers Functional [place] Measure 0=Not Assessed/NA 4=Minimal Assistance 1=Total Assistance 5=Supervision or Setup 2=Maximal Assistance 6=Modified [place] 3=Moderate Assistance 7=Complete IndependenceIRFPAI Quality Coding Scale 6 Independent with activity with or without an assistive device 5 Patient requires set up or clean up by helper. Patient completes activity by themselves 4 Supervision or touching assist (CGA). [place] provide cues , steadying assist 3 The helper provides less than half the effort to complete the activity 2 The helper provides more than half the effort to complete the activity 1 Dependent. The helper does all the effort to complete an activity 7 Patient refused to complete or attempt activity 9 The patient did not perform the activity before the current illness or injury 88 Not attempted due to Medical conditions or safety concerns Scootin Rollin Roll Left to Right (QC): 5 Supine to/from Sit: 5 Sit to/from Stand: 5 Sit to Lying (QC): 5 Sit to Stand (QC): 5 Weight Bearing Right Lower Extremity: Right Full Weight Bearing Left Lower Extremity: Left Full Weight Bearing Gait Training Does the Patient Walk?: Yes Distance (FIM): 3=150 ft Distance: 300' Walk 10 feet (QC): 5 Walk 50 ft with 2 Turns(QC): 5 Walk 150 ft (QC): 5 Gait Level of Assist: 5 Gait Persons Needed: 1 Gait Assistive Device: FWW Pt walks with slow but steady tegan, no LOB. Wheelchair Training Does the Pt Use a Wheelchair?: No Exercises NuStep Minutes: 15 NuStep Workload: 5 Treatments Pt transfers from recliner to standing using FWW at SBA. Pt ambulates in hallway using FWW at SBA due to fatigue & pt reporting her legs feel like jello. Pt completes 15m on NuStep at Workload 3 then up to 5 during tx. Pt then returns to room to rest Supine in bed at end of tx with all needs met. Assessment Current Status: Good Progress Pt is improving with strength and endurance. Pt no longer needs O2 during tx. PT Correction Goals Language Tutor Goals PT Correction Goals Time Frame: May 14, 2017 Transfers (B,C,W/C) (FIM): 6 Sit to Lying (QC): 6 Lying-Sitting on Side/Bed(QC): 6 Sit to Stand (QC): 6 Rollin Roll Left to Right (QC): 6 Chair/[id number] Xfer(QC): 6 Car Transfer (QC): 6 Does the Patient Walk: Yes Gait (FIM): 6 Gait distance (FIM): 3=150 ft Distance: >300' Walk 10 feet (QC): 6 Walk 10ft-Uneven Surface(QC): 6 Walk 50ft with 2 Turns (QC): 6 Walk 150 ft (QC): 6 Gait Level of Assist: 6 Gait Assistive Device: FWW Stairs (FIM): 6 # of Steps: 12 1 Step (curb) (QC): 6 4 Steps (QC): 6 12 Steps (QC): 6 Stairs Level Of Assist: 6 Picking up an Object (QC): 6 PT Plan Problem List Problem List: Activity Tolerance, Functional Strength, Safety, Balance, Gait Treatment/Plan Treatment Plan: Continue Plan of Care Treatment Plan: Bed Mobility, Concurrent Therapy, Education, Functional Activity [place], Functional Strength, Group Therapy, Gait, Safety, Therapeutic Exercise, Transfers Treatment Duration: May 14, 2017 Frequency: At least 5 of 7 days/Wk (IRF) Estimated Hrs Per Day: 1.5 hours per day Patient and/or Family Agrees t: Yes Safety Risks/Education Patient Education: Gait Training, Correct Positioning, Safety Issues Teaching Recipient: Patient Teaching Methods: Discussion Response to Teaching: Verbalize Understanding Time/GCodes Time In: 1320 Time Out: 1350 Total Billed Treatment Time: 30 Total Billed Treatment 1, EX (15m) & GT (15m) IMAN WHEELER CERTIFIED ORTHOPTIST Apr 20, 2017 14:24
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
[2017-04-20 18:09] VITALS: BP 136/75
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
[2017-04-20 19:21] VITALS: BP 136/78
[2017-04-20] MEDS ORDERED: RT-ALBUTEROL/IPRATROPIUM 3 ML (DUONEB) VIAL INH PRN (21:30)
[2017-04-21 06:26] VITALS: BP 150/75
[2017-04-21] MEDS: CALCIUM CARB + VIT D 600 MG (CALCARB + D) TAB PO SCH (06:35)
[2017-04-21] MEDS: OMEGA 3 (FISH OIL) 1000 MG CAP PO SCH ×2 (06:35→16:13)
[2017-04-21] MEDS: LACTOBACILLUS Acidoph/Bulgar (LACTINEX/FLORANEX) TAB PO SCH ×3 (06:35→16:13)
[2017-04-21] MEDS: MULTIVIT W/MINERALS TAB (THERAGRAN M) PO SCH (06:35)
[2017-04-21] MEDS: KCL 20 MEQ TAB (K-DUR) PO SCH (06:35)
[2017-04-21 07:56] VITALS: BP 118/71
[2017-04-21] MEDS: CEFDINIR 300 MG (OMNICEF) CAP PO SCH (07:57)
[2017-04-21] MEDS: GABAPENTIN 300 MG (NEURONTIN) CAP PO SCH (07:57)
[2017-04-21] MEDS: DILTIAZEM 180 MG (CARDIZEM CD) CAP PO SCH (07:58)
[2017-04-21] MEDS: FLUoxetine HCL 20 MG (PROzac) CAP PO SCH (07:58)
--- NOTE | 2017-04-21 07:58 | Occupational Ther Daily Note ---
OT Current Status-Daily Note Subjective Pt alert, up with FWW , present. Pt agreed to therapy. No c/o pain at this time. Mental Status/Objective Patient Orientation: Person, Place, Time, Situation Functional [place] Measure 0=Not Assessed/NA 4=Minimal Assistance 1=Total Assistance 5=Supervision or Setup 2=Maximal Assistance 6=Modified [place] 3=Moderate Assistance 7=Complete [place] Attachments: Drains ADL-Treatment Pt ambulated with SBA using FWW around bathroom. Assist to maneuver wound vac. Functional [place] Measure 0=Not Assessed/NA 4=Minimal Assistance 1=Total Assistance 5=Supervision or Setup 2=Maximal Assistance 6=Modified [place] 3=Moderate Assistance 7=Complete IndependenceIRFPAI Quality Coding Scale 6 Independent with activity with or without an assistive device 5 Patient requires set up or clean up by helper. Patient completes activity by themselves 4 Supervision or touching assist (CGA). [place] provide cues , steadying assist 3 The helper provides less than half the effort to complete the activity 2 The helper provides more than half the effort to complete the activity 1 Dependent. The helper does all the effort to complete an activity 7 Patient refused to complete or attempt activity 9 The patient did not perform the activity before the current illness or injury 88 Not attempted due to Medical conditions or safety concerns Grooming (FIM): 6 (Standing at sink, pt able to complete own grooming.) Oral Hygiene (QC): 6 Bathing (FIM): 5 (Applying covering to wound vac area needed. Using shower bench, hand held shower and grabbars pt able to complete bathing by self.) Bathing Location: L Arm, R Arm, L Upper Leg, R Upper Leg, L Lower Leg ( including foot), R Lower Leg (including foot), Chest, Abdomen, Buttocks, Perineal Area Shower/Bathe Self (QC): 5 Upper Body (FIM): 5 (Pt's got clothing ready for pt. Pt then able to complete upper body dressing by self.) Upper Body Dressing (QC): 5 Lower Body Dressing (FIM): 5 (Pt's got clothing ready for pt. Pt then able to complete lower body dressing by self.) Lower Body Dressing (QC): 5 On/Off Footwear (QC): 5 Toileting (FIM): 5 (Manipulating wound vac. Pt able to complete all toileting. ) Toileting Hygiene (QC): 5 Transfers (B, C, W/C) (FIM): 5 (Assist to manipulate wound vac. Pt able to transfer using FWW.) Toilet/Commode Transfer (FIM): 5 (Assist to manipulate wound vac. Using FWW and grabbar pt is able to complete.) Toilet Transfer (QC): 5 Shower Transfer(FIM): 5 (Assist to manipulate wound vac. Using FWW, grabars and shower bench pt is able to complete.) Other Treatment Pt ambulated to therapy gym with SBA using FWW. Pt completed arm bike for 10 min at 25 littlejohn resistance to increase strength and activity tolerance for daily functional tasks. Discussion about equipment needed at home. AE magazine given for reference. After therapy, pt lying in bed with call light/ phone in reach. All needs met in room. Education OT Patient Education: Use of adapted equipment Teaching Recipient: Patient Teaching Methods: Demonstration, Handout, Discussion Response to Teaching: Verbalize Understanding OT Short Term Goals Short Term Goals 1=Demonstrate adherence to instructed precautions during ADL tasks. 2=Patient will verbalize/demonstrate understanding of assistive devices/ modifications for ADL. 3=Patient will improve strength/tolerance for activity to enable patient to perform ADL's. OT Detention Goals Detention Goals Time Frame: May 03, 2017 Eating (FIM): 6 Eating (QC): 6 Groomin Oral Hygiene (QC): 6 Bathing(FIM): 6 Shower/Bathe Self (QC): 6 Upper Body Dressing(FIM): 6 Upper Body Dressing (QC): 6 Lower Body Dressing(FIM): 6 Lower Body Dressing (QC): 6 On/Off Footwear (QC): 6 Toileting(FIM): 6 Toileting Hygiene (QC): 6 Transfers (B,C,W/C) (FIM): 6 Toilet/Commode Transfer(FIM): 6 Toilet/Commode Transfer (QC): 6 Shower Transfer(FIM): 6 Additional Goals: 1-Demonstrate ADL Tasks, 2-Verbalize Understanding, 3- ImproveStrength/[place] 1=Demonstrate adherence to instructed precautions during ADL tasks. 2=Patient will verbalize/demonstrate understanding of assistive devices/ modifications for ADL. 3=Patient will improve strength/tolerance for activity to enable patient to perform ADL's. OT Education/Plan Discharge Recommendations Plan/Recommendations: Continue POC Treatment Plan/Plan of Care Patient would benefit from OT for education, treatment and training to promote independence in ADL's, mobility, safety and/or upper extremity function for ADL' s. Plan of Care: ADL Retraining, Functional Mobility, UE Funct Exercise/Act Treatment Duration: May 03, 2017 Frequency: At least 5 of 7 days/Wk (IRF) Estimated Hrs Per Day: 1.5 hours per day Agreement: Yes Rehab Potential: Good Time/GCodes Start Time: 06:55 Stop Time: 07:55 Total Time Billed (hr/min): 60 Billed Treatment Time 1 visit-ADL 3 (50 min) EX 1 (10 min) ITALIA PETERSON Apr 21, 2017 07:58
[2017-04-21] MEDS: RT-ALBUTEROL/IPRATROPIUM 3 ML (DUONEB) VIAL INH SCH ×3 (08:09→21:25)
--- NOTE | 2017-04-21 09:23 | Physical Therapy Daily Note ---
PT Daily Note-Current Subjective Pt laying Supine in bed upon arrival. Pt agrees to PT. Pain Numeric Pain Scale: 4 Location: Right, Left Location Body Site: Calf Pain Description: Ache, Tightness Mental Status Patient Orientation: Person, Place, Time, Situation Attachments: Other-See Comments (Wound Vac) Transfers Functional [place] Measure 0=Not Assessed/NA 4=Minimal Assistance 1=Total Assistance 5=Supervision or Setup 2=Maximal Assistance 6=Modified [place] 3=Moderate Assistance 7=Complete IndependenceIRFPAI Quality Coding Scale 6 Independent with activity with or without an assistive device 5 Patient requires set up or clean up by helper. Patient completes activity by themselves 4 Supervision or touching assist (CGA). [place] provide cues , steadying assist 3 The helper provides less than half the effort to complete the activity 2 The helper provides more than half the effort to complete the activity 1 Dependent. The helper does all the effort to complete an activity 7 Patient refused to complete or attempt activity 9 The patient did not perform the activity before the current illness or injury 88 Not attempted due to Medical conditions or safety concerns Scootin Rollin Roll Left to Right (QC): 5 Supine to/from Sit: 5 Sit to/from Stand: 5 Sit to Lying (QC): 5 Sit to Stand (QC): 5 Weight Bearing Right Lower Extremity: Right Full Weight Bearing Left Lower Extremity: Left Full Weight Bearing Gait Training Does the Patient Walk?: Yes Distance (FIM): 3=150 ft Distance: 150' Walk 10 feet (QC): 5 Walk 50 ft with 2 Turns(QC): 5 Walk 150 ft (QC): 5 Gait Level of Assist: 5 Gait Persons Needed: 1 Gait Assistive Device: FWW Pt walks with normalized gait, slow tegan. Pt has no LOB. Wheelchair Training Does the Pt Use a Wheelchair?: No Stair Training Stair Training: Handrails/: 2 handrails #of Steps: 4 1 Step (curb) (QC): 5 4 Steps (QC): 5 Stairs: Pattern: Reciprocal Exercises Seated Therapy Exercises: Ankle pumps, Long arc quads, Hip flexion, Kicking activity Seated Reps: 20 Standing: Heel/toe raises, Weight shifts Standing Reps: 10 NuStep Minutes: 15 NuStep Workload: 5 Treatments Pt transfers from Supine to EOB to standing using FWW at [facility]. Pt ambulates using FWW at SBA in hallway. Pt uses NuStep for 15m at Workload 5 followed by Seated Ex. Pt then takes short rest followed by 1 set of 4 stairs. Pt completed Standing Ex at //bars before walking back to room to rest. Pt transfers back to Supine in bed at end of tx to rest with all needs met. Assessment Current Status: Good Progress Pt is getting stronger and more independent with transfers and ambulation. Pt fatigues less quickly. PT Halfway Goals Historical Records Administrator Goals PT Historical Records Administrator Goals Time Frame: May 14, 2017 Transfers (B,C,W/C) (FIM): 6 Sit to Lying (QC): 6 Lying-Sitting on Side/Bed(QC): 6 Sit to Stand (QC): 6 Rollin Roll Left to Right (QC): 6 Chair/Plf-cy-Sqggc Xfer(QC): 6 Car Transfer (QC): 6 Does the Patient Walk: Yes Gait (FIM): 6 Gait distance (FIM): 3=150 ft Distance: >300' Walk 10 feet (QC): 6 Walk 10ft-Uneven Surface(QC): 6 Walk 50ft with 2 Turns (QC): 6 Walk 150 ft (QC): 6 Gait Level of Assist: 6 Gait Assistive Device: FWW Stairs (FIM): 6 # of Steps: 12 1 Step (curb) (QC): 6 4 Steps (QC): 6 12 Steps (QC): 6 Stairs Level Of Assist: 6 Picking up an Object (QC): 6 PT Plan Problem List Problem List: Activity Tolerance, Functional Strength, Gait Treatment/Plan Treatment Plan: Continue Plan of Care Treatment Plan: Bed Mobility, Concurrent Therapy, Education, Functional Activity [place], Functional Strength, Group Therapy, Gait, Safety, Therapeutic Exercise, Transfers Treatment Duration: May 14, 2017 Frequency: At least 5 of 7 days/Wk (IRF) Estimated Hrs Per Day: 1.5 hours per day Patient and/or Family Agrees t: Yes Safety Risks/Education Patient Education: Gait Training, Correct Positioning, Safety Issues Teaching Recipient: Patient Teaching Methods: Discussion Response to Teaching: Verbalize Understanding Time/GCodes Time In: 815 Time Out: 915 Total Billed Treatment Time: 60 Total Billed Treatment 1, GT (15m), EX x2 (35m) & FA (10m) IMAN WHEELER CONSULTING PROJECT DIRECTOR Apr 21, 2017 09:23
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
[2017-04-21] MEDS: ENOXAPARIN 40 MG/0.4 ML (LOVENOX) SYR SC SCH (11:43)
--- NOTE | 2017-04-21 13:02 | Occupational Ther Daily Note ---
OT Current Status-Daily Note Subjective Pt alert, lying in bed. present in room. Agreed to therapy. No c/o pain. Mental Status/Objective Patient Orientation: Person, Place, Time, Situation Functional [place] Measure 0=Not Assessed/NA 4=Minimal Assistance 1=Total Assistance 5=Supervision or Setup 2=Maximal Assistance 6=Modified [place] 3=Moderate Assistance 7=Complete [place] ADL-Treatment Functional [place] Measure 0=Not Assessed/NA 4=Minimal Assistance 1=Total Assistance 5=Supervision or Setup 2=Maximal Assistance 6=Modified [place] 3=Moderate Assistance 7=Complete IndependenceIRFPAI Quality Coding Scale 6 Independent with activity with or without an assistive device 5 Patient requires set up or clean up by helper. Patient completes activity by themselves 4 Supervision or touching assist (CGA). [place] provide cues , steadying assist 3 The helper provides less than half the effort to complete the activity 2 The helper provides more than half the effort to complete the activity 1 Dependent. The helper does all the effort to complete an activity 7 Patient refused to complete or attempt activity 9 The patient did not perform the activity before the current illness or injury 88 Not attempted due to Medical conditions or safety concerns Other Treatment Pt ambulated from room to [facility] kitchen using FWW with SBA. Pt was able to reach into cabinets and walk along cabinet with cup of water with no LOB. Pt opened microwave and programmed it. Pt then ambulated to therapy gym to complete UE fine motor activities. 1/2" wt attached to each wrist to complete resistive pegs task to increase strength of arm and hands for bathing and dressing. Pt then ambulated back to room and sat in recliner. After therapy, pt sitting in recliner with call light/phone in reach. present in room. All needs met in room. OT Short Term Goals Short Term Goals 1=Demonstrate adherence to instructed precautions during ADL tasks. 2=Patient will verbalize/demonstrate understanding of assistive devices/ modifications for ADL. 3=Patient will improve strength/tolerance for activity to enable patient to perform ADL's. OT Network Applications Specialist Goals Nursing Home Goals Time Frame: May 03, 2017 Eating (FIM): 6 Eating (QC): 6 Groomin Oral Hygiene (QC): 6 Bathing(FIM): 6 Shower/Bathe Self (QC): 6 Upper Body Dressing(FIM): 6 Upper Body Dressing (QC): 6 Lower Body Dressing(FIM): 6 Lower Body Dressing (QC): 6 On/Off Footwear (QC): 6 Toileting(FIM): 6 Toileting Hygiene (QC): 6 Transfers (B,C,W/C) (FIM): 6 Toilet/Commode Transfer(FIM): 6 Toilet/Commode Transfer (QC): 6 Shower Transfer(FIM): 6 Additional Goals: 1-Demonstrate ADL Tasks, 2-Verbalize Understanding, 3- ImproveStrength/[place] 1=Demonstrate adherence to instructed precautions during ADL tasks. 2=Patient will verbalize/demonstrate understanding of assistive devices/ modifications for ADL. 3=Patient will improve strength/tolerance for activity to enable patient to perform ADL's. OT Education/Plan Discharge Recommendations Plan/Recommendations: Continue POC Treatment Plan/Plan of Care Patient would benefit from OT for education, treatment and training to promote independence in ADL's, mobility, safety and/or upper extremity function for ADL' s. Plan of Care: ADL Retraining, Functional Mobility, UE Funct Exercise/Act Treatment Duration: May 03, 2017 Frequency: At least 5 of 7 days/Wk (IRF) Estimated Hrs Per Day: 1.5 hours per day Agreement: Yes Rehab Potential: Good Time/GCodes Start Time: 11:00 Stop Time: 11:30 Total Time Billed (hr/min): 30 Billed Treatment Time 1 visit-FA 1 (20 min) EX 1 (10 min) ITALIA PETERSON Apr 21, 2017 13:02
--- NOTE | 2017-04-21 14:26 | Physical Therapy Daily Note ---
PT Daily Note-Current Subjective Pt sitting in recliner visiting with Sp upon arrival. Pt agrees to PT. Pain Numeric Pain Scale: 4 Location Body Site: Abdomen Pain Description: Ache Mental Status Patient Orientation: Person, Place, Time, Situation Attachments: Other-See Comments (Back brace) Transfers Functional [place] Measure 0=Not Assessed/NA 4=Minimal Assistance 1=Total Assistance 5=Supervision or Setup 2=Maximal Assistance 6=Modified [place] 3=Moderate Assistance 7=Complete IndependenceIRFPAI Quality Coding Scale 6 Independent with activity with or without an assistive device 5 Patient requires set up or clean up by helper. Patient completes activity by themselves 4 Supervision or touching assist (CGA). [place] provide cues , steadying assist 3 The helper provides less than half the effort to complete the activity 2 The helper provides more than half the effort to complete the activity 1 Dependent. The helper does all the effort to complete an activity 7 Patient refused to complete or attempt activity 9 The patient did not perform the activity before the current illness or injury 88 Not attempted due to Medical conditions or safety concerns Scootin Sit to/from Stand: 5 Sit to Stand (QC): 5 Weight Bearing Right Lower Extremity: Right Full Weight Bearing Left Lower Extremity: Left Full Weight Bearing Gait Training Does the Patient Walk?: Yes Distance (FIM): 3=150 ft Distance: 250' Walk 10 feet (QC): 6 Walk 50 ft with 2 Turns(QC): 6 Walk 150 ft (QC): 6 Gait Level of Assist: 6 Gait Persons Needed: 1 Gait Assistive Device: FWW Pt walks with a normalized gait pattern, slow tegan but no LOB. Wheelchair Training Does the Pt Use a Wheelchair?: No Stair Training Stair Training: Handrails/: 2 handrails #of Steps: 8 1 Step (curb) (QC): 5 4 Steps (QC): 5 Stairs: Pattern: Reciprocal Level of Assist: 5 Treatments Pt transfers from recliner to standing using FWW at Mod I. Pt ambulates using FWW at Mod I in hallway. Pt ambulates 2 sets of 4 stairs. Pt returns to room to rest at end of walk. Pt transfers to Supine in bed at end of tx with all needs met. Assessment Current Status: Good Progress Pt is walking farther before needing to rest as well as getting stronger. Pt's Wound Vac was also removed before tx this afternoon. PT Assisted Goals Assisted Goals PT Building Attendant Goals Time Frame: May 14, 2017 Transfers (B,C,W/C) (FIM): 6 Sit to Lying (QC): 6 Lying-Sitting on Side/Bed(QC): 6 Sit to Stand (QC): 6 Rollin Roll Left to Right (QC): 6 Chair/Poc-lj-Oulvc Xfer(QC): 6 Car Transfer (QC): 6 Does the Patient Walk: Yes Gait (FIM): 6 Gait distance (FIM): 3=150 ft Distance: >300' Walk 10 feet (QC): 6 Walk 10ft-Uneven Surface(QC): 6 Walk 50ft with 2 Turns (QC): 6 Walk 150 ft (QC): 6 Gait Level of Assist: 6 Gait Assistive Device: FWW Stairs (FIM): 6 # of Steps: 12 1 Step (curb) (QC): 6 4 Steps (QC): 6 12 Steps (QC): 6 Stairs Level Of Assist: 6 Picking up an Object (QC): 6 PT Plan Problem List Problem List: Activity Tolerance, Gait Treatment/Plan Treatment Plan: Continue Plan of Care Treatment Plan: Bed Mobility, Concurrent Therapy, Education, Functional Activity [place], Functional Strength, Group Therapy, Gait, Safety, Therapeutic Exercise, Transfers Treatment Duration: May 14, 2017 Frequency: At least 5 of 7 days/Wk (IRF) Estimated Hrs Per Day: 1.5 hours per day Patient and/or Family Agrees t: Yes Safety Risks/Education Patient Education: Gait Training, Correct Positioning, Safety Issues Teaching Recipient: Patient Teaching Methods: Discussion Response to Teaching: Verbalize Understanding Time/GCodes Time In: 1300 Time Out: 1330 Total Billed Treatment Time: 30 Total Billed Treatment 1, GT (20m) & FA (10m) IMAN WHEELER CARE TRANSPORT NURSE Apr 21, 2017 14:26
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
[2017-04-21 17:30] VITALS: BP 144/78
[2017-04-22 05:35] VITALS: BP 144/73
[2017-04-22] MEDS: KCL 20 MEQ TAB (K-DUR) PO SCH (06:08)
[2017-04-22] MEDS: OMEGA 3 (FISH OIL) 1000 MG CAP PO SCH ×2 (06:08→17:13)
[2017-04-22] MEDS: MULTIVIT W/MINERALS TAB (THERAGRAN M) PO SCH (06:08)
[2017-04-22] MEDS: LACTOBACILLUS Acidoph/Bulgar (LACTINEX/FLORANEX) TAB PO SCH ×3 (06:08→16:07)
[2017-04-22] MEDS: CALCIUM CARB + VIT D 600 MG (CALCARB + D) TAB PO SCH (06:08)
[2017-04-22] MEDS: RT-ALBUTEROL/IPRATROPIUM 3 ML (DUONEB) VIAL INH SCH ×3 (07:36→20:51)
[2017-04-22] MEDS: FLUoxetine HCL 20 MG (PROzac) CAP PO SCH (09:28)
[2017-04-22] MEDS: DILTIAZEM 180 MG (CARDIZEM CD) CAP PO SCH (09:28)
[2017-04-22] MEDS: GABAPENTIN 300 MG (NEURONTIN) CAP PO SCH (09:28)
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
[2017-04-22] MEDS: ENOXAPARIN 40 MG/0.4 ML (LOVENOX) SYR SC SCH (12:02)
--- NOTE | 2017-04-22 12:03 | Physical Therapy Daily Note ---
PT Daily Note-Current Subjective Pt. states she feels like she is finally making some progress and will be heading home soon. Pain Numeric Pain Scale: 0-No Pain Mental Status Patient Orientation: Normal For Age Transfers Functional [place] Measure 0=Not Assessed/NA 4=Minimal Assistance 1=Total Assistance 5=Supervision or Setup 2=Maximal Assistance 6=Modified [place] 3=Moderate Assistance 7=Complete IndependenceIRFPAI Quality Coding Scale 6 Independent with activity with or without an assistive device 5 Patient requires set up or clean up by helper. Patient completes activity by themselves 4 Supervision or touching assist (CGA). [place] provide cues , steadying assist 3 The helper provides less than half the effort to complete the activity 2 The helper provides more than half the effort to complete the activity 1 Dependent. The helper does all the effort to complete an activity 7 Patient refused to complete or attempt activity 9 The patient did not perform the activity before the current illness or injury 88 Not attempted due to Medical conditions or safety concerns Transfers (B, C, W/C) (FIM): 6 Scootin Rollin Supine to/from Sit: 6 Sit to/from Stand: 6 Bed to/from Chair: 6 Car Transfer (QC): 6 Weight Bearing Right Lower Extremity: Right Full Weight Bearing Left Lower Extremity: Left Full Weight Bearing Gait Training Does the Patient Walk?: Yes Gait (FIM): 6 Distance (FIM): 3=150 ft (175,250) Gait Level of Assist: 6 Gait Persons Needed: 0 Gait Assistive Device: FWW up ad minnie Stair Training Stair Training: Handrails/: 2 handrails Stairs (FIM): 6 #of Steps: 16 Stairs: Pattern: Reciprocal Level of Assist: 6 Exercises Supine Ex: Bridging, Ankle pumps, Quad Set, Rolling, Glut sets, Lower trunk rotation, Heel Slides, Short Arc Quads, Scooting, Straight leg raise, Hip abd/ add Supine Reps: 20 NuStep Minutes: 17 NuStep Workload: 4 Treatments toileted indep Assessment Current Status: Good Progress PT Damascener Goals Damascener Goals PT Damascener Goals Time Frame: May 14, 2017 Transfers (B,C,W/C) (FIM): 6 Sit to Lying (QC): 6 Lying-Sitting on Side/Bed(QC): 6 Sit to Stand (QC): 6 Rollin Roll Left to Right (QC): 6 Chair/Oha-se-Ejwdj Xfer(QC): 6 Car Transfer (QC): 6 Does the Patient Walk: Yes Gait (FIM): 6 Gait distance (FIM): 3=150 ft Distance: >300' Walk 10 feet (QC): 6 Walk 10ft-Uneven Surface(QC): 6 Walk 50ft with 2 Turns (QC): 6 Walk 150 ft (QC): 6 Gait Level of Assist: 6 Gait Assistive Device: FWW Stairs (FIM): 6 # of Steps: 12 1 Step (curb) (QC): 6 4 Steps (QC): 6 12 Steps (QC): 6 Stairs Level Of Assist: 6 Picking up an Object (QC): 6 PT Plan Treatment/Plan Treatment Plan: Continue Plan of Care Treatment Plan: Bed Mobility, Concurrent Therapy, Education, Functional Activity [place], Functional Strength, Group Therapy, Gait, Safety, Therapeutic Exercise, Transfers Treatment Duration: May 14, 2017 Frequency: At least 5 of 7 days/Wk (IRF) Estimated Hrs Per Day: 1.5 hours per day Patient and/or Family Agrees t: Yes Safety Risks/Education Patient Education: Gait Training, Transfer Techniques, Steps, Issued Written HEP, Correct Positioning, Disease Process, Safety Issues Teaching Recipient: Patient Teaching Methods: Demonstration, Discussion Response to Teaching: Verbalize Understanding, Return Demonstration, Reinforcement Needed Time/GCodes Time In: 1045 Time Out: 1200 Total Billed Treatment Time: 75 Total Billed Treatment 1,EX30m,FA25m,GT20m G Codes Necessary: RUDY Andrews TROUBLE TRACER Apr 22, 2017 12:03
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
--- NOTE | 2017-04-22 14:31 | Physical Therapy Daily Note ---
PT Daily Note-Current Subjective Pt. had requested written illustrated exercise guide. This was distributed. Pt. expresses she is pleased with this guide. Pain Numeric Pain Scale: 0-No Pain Mental Status Patient Orientation: Normal For Age Transfers Functional [place] Measure 0=Not Assessed/NA 4=Minimal Assistance 1=Total Assistance 5=Supervision or Setup 2=Maximal Assistance 6=Modified [place] 3=Moderate Assistance 7=Complete IndependenceIRFPAI Quality Coding Scale 6 Independent with activity with or without an assistive device 5 Patient requires set up or clean up by helper. Patient completes activity by themselves 4 Supervision or touching assist (CGA). [place] provide cues , steadying assist 3 The helper provides less than half the effort to complete the activity 2 The helper provides more than half the effort to complete the activity 1 Dependent. The helper does all the effort to complete an activity 7 Patient refused to complete or attempt activity 9 The patient did not perform the activity before the current illness or injury 88 Not attempted due to Medical conditions or safety concerns all MOD I Weight Bearing Right Lower Extremity: Right Full Weight Bearing Left Lower Extremity: Left Full Weight Bearing Gait Training Gait Assistive Device: FWW up ad minnie about unit to from rx Exercises Supine Ex: Quad Set, Heel Slides Supine Reps: 15 Standing: Hip Abduction, Heel/toe raises, 3 way Ex=Flex, Abd, Ext, Marching, Mini squats Standing Reps: 15 Treatments pt. instructed in exercises at parallel bars but instructed to duplicate this at kitchen counter at home with chair behind to rest with superv of or home PT Assessment Current Status: Good Progress PT Usp Goals Usp Goals PT Usp Goals Time Frame: May 14, 2017 Transfers (B,C,W/C) (FIM): 6 Sit to Lying (QC): 6 Lying-Sitting on Side/Bed(QC): 6 Sit to Stand (QC): 6 Rollin Roll Left to Right (QC): 6 Chair/Org-qk-Wmtbg Xfer(QC): 6 Car Transfer (QC): 6 Does the Patient Walk: Yes Gait (FIM): 6 Gait distance (FIM): 3=150 ft Distance: >300' Walk 10 feet (QC): 6 Walk 10ft-Uneven Surface(QC): 6 Walk 50ft with 2 Turns (QC): 6 Walk 150 ft (QC): 6 Gait Level of Assist: 6 Gait Assistive Device: FWW Stairs (FIM): 6 # of Steps: 12 1 Step (curb) (QC): 6 4 Steps (QC): 6 12 Steps (QC): 6 Stairs Level Of Assist: 6 Picking up an Object (QC): 6 PT Plan Treatment/Plan Treatment Plan: Continue Plan of Care Treatment Plan: Bed Mobility, Concurrent Therapy, Education, Functional Activity [place], Functional Strength, Group Therapy, Gait, Safety, Therapeutic Exercise, Transfers Treatment Duration: May 14, 2017 Frequency: At least 5 of 7 days/Wk (IRF) Estimated Hrs Per Day: 1.5 hours per day Patient and/or Family Agrees t: Yes Safety Risks/Education Patient Education: Issued Written HEP Teaching Recipient: Patient Teaching Methods: Demonstration, Handout, Discussion Response to Teaching: Verbalize Understanding, Return Demonstration, Reinforcement Needed Time/GCodes Time In: 1340 Time Out: 1400 Total Billed Treatment Time: 20 Total Billed Treatment 1,EX20m G Codes Necessary: RUDY Andrews DIRECTOR OF VENDOR MANAGEMENT Apr 22, 2017 14:31
[2017-04-22 15:16] VITALS: BP 144/73
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
[2017-04-22 17:38] VITALS: BP 153/83
[2017-04-23 05:30] VITALS: BP 117/56
[2017-04-23] MEDS: MULTIVIT W/MINERALS TAB (THERAGRAN M) PO SCH (06:02)
[2017-04-23] MEDS: LACTOBACILLUS Acidoph/Bulgar (LACTINEX/FLORANEX) TAB PO SCH ×3 (06:02→16:16)
[2017-04-23] MEDS: CALCIUM CARB + VIT D 600 MG (CALCARB + D) TAB PO SCH (06:02)
[2017-04-23] MEDS: OMEGA 3 (FISH OIL) 1000 MG CAP PO SCH ×2 (06:02→16:16)
[2017-04-23] MEDS: KCL 20 MEQ TAB (K-DUR) PO SCH (06:03)
[2017-04-23] MEDS: RT-ALBUTEROL/IPRATROPIUM 3 ML (DUONEB) VIAL INH SCH ×3 (06:41→19:40)
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
[2017-04-23] MEDS: FLUoxetine HCL 20 MG (PROzac) CAP PO SCH (08:56)
[2017-04-23] MEDS: GABAPENTIN 300 MG (NEURONTIN) CAP PO SCH (08:56)
[2017-04-23] MEDS: DILTIAZEM 180 MG (CARDIZEM CD) CAP PO SCH (08:56)
--- NOTE | 2017-04-23 11:15 | Physical Therapy Daily Note ---
PT Daily Note-Current Subjective Pt sitting in recliner upon arrival. Pt agrees to PT. Pain Numeric Pain Scale: 5-Moderate Pain Location: Lower Location Body Site: Back Pain Description: Ache Mental Status Patient Orientation: Person, Place, Time, Situation Attachments: Other-See Comments (Back Brace) Transfers Functional [place] Measure 0=Not Assessed/NA 4=Minimal Assistance 1=Total Assistance 5=Supervision or Setup 2=Maximal Assistance 6=Modified [place] 3=Moderate Assistance 7=Complete IndependenceIRFPAI Quality Coding Scale 6 Independent with activity with or without an assistive device 5 Patient requires set up or clean up by helper. Patient completes activity by themselves 4 Supervision or touching assist (CGA). [place] provide cues , steadying assist 3 The helper provides less than half the effort to complete the activity 2 The helper provides more than half the effort to complete the activity 1 Dependent. The helper does all the effort to complete an activity 7 Patient refused to complete or attempt activity 9 The patient did not perform the activity before the current illness or injury 88 Not attempted due to Medical conditions or safety concerns Scootin Sit to/from Stand: 6 Sit to Stand (QC): 6 Weight Bearing Right Lower Extremity: Right Full Weight Bearing Left Lower Extremity: Left Full Weight Bearing Gait Training Does the Patient Walk?: Yes Distance (FIM): 3=150 ft Distance: 300' Walk 10 feet (QC): 6 Walk 50 ft with 2 Turns(QC): 6 Walk 150 ft (QC): 6 Gait Level of Assist: 6 Gait Persons Needed: 1 Gait Assistive Device: FWW Pt walks with normalized gait pattern and tegan, no LOB. Wheelchair Training Does the Pt Use a Wheelchair?: No Exercises Standing: Heel/toe raises, 3 way Ex=Flex, Abd, Ext, Marching Standing Reps: 20 NuStep Minutes: 15 NuStep Workload: 6 Treatments Pt transfers from sitting in recliner to standing using FWW at Mod I. Pt ambulates using FWW at Mod I in hallway. Pt uses NuStep for 15m at Workload 6 to increase strength and endurance. Pt completes Standing Ex at //bars without rest break. Pt then walks back to room after walk in hallway to use restroom. Pt returns to recliner at end of tx with all needs met. Assessment Current Status: Good Progress Pt has improved with strength, transfers and ambulation both with independence and safety. PT Business Control Manager Goals Business Control Manager Goals PT Fpc Goals Time Frame: May 14, 2017 Transfers (B,C,W/C) (FIM): 6 Sit to Lying (QC): 6 Lying-Sitting on Side/Bed(QC): 6 Sit to Stand (QC): 6 Rollin Roll Left to Right (QC): 6 Chair/Hnd-zl-Ygdxy Xfer(QC): 6 Car Transfer (QC): 6 Does the Patient Walk: Yes Gait (FIM): 6 Gait distance (FIM): 3=150 ft Distance: >300' Walk 10 feet (QC): 6 Walk 10ft-Uneven Surface(QC): 6 Walk 50ft with 2 Turns (QC): 6 Walk 150 ft (QC): 6 Gait Level of Assist: 6 Gait Assistive Device: FWW Stairs (FIM): 6 # of Steps: 12 1 Step (curb) (QC): 6 4 Steps (QC): 6 12 Steps (QC): 6 Stairs Level Of Assist: 6 Picking up an Object (QC): 6 PT Plan Problem List Problem List: Activity Tolerance Treatment/Plan Treatment Plan: Continue Plan of Care Treatment Plan: Bed Mobility, Concurrent Therapy, Education, Functional Activity [place], Functional Strength, Group Therapy, Gait, Safety, Therapeutic Exercise, Transfers Treatment Duration: May 14, 2017 Frequency: At least 5 of 7 days/Wk (IRF) Estimated Hrs Per Day: 1.5 hours per day Patient and/or Family Agrees t: Yes Time/GCodes Time In: 1015 Time Out: 1115 Total Billed Treatment Time: 60 Total Billed Treatment 1, GT x2 (30m) & EX x2 (30m) IMAN WHEELER FRESH FOOD MANAGER Apr 23, 2017 11:15
[2017-04-23] MEDS: ENOXAPARIN 40 MG/0.4 ML (LOVENOX) SYR SC SCH (11:17)
--- NOTE | 2017-04-23 11:56 | Occupational Ther Daily Note ---
OT Current Status-Daily Note Subjective Pt in bed, agrees to treatment. Pt states she is not currently having any pain. Mental Status/Objective Functional [place] Measure 0=Not Assessed/NA 4=Minimal Assistance 1=Total Assistance 5=Supervision or Setup 2=Maximal Assistance 6=Modified [place] 3=Moderate Assistance 7=Complete [place] ADL-Treatment Pt supine to sit with modified independence. Pt declined bathing today and is already dressed. Don back brace with set up. Pt donned shoes without assistance. Pt completed toilet transfer and toileting during session with modified independence. Functional [place] Measure 0=Not Assessed/NA 4=Minimal Assistance 1=Total Assistance 5=Supervision or Setup 2=Maximal Assistance 6=Modified [place] 3=Moderate Assistance 7=Complete IndependenceIRFPAI Quality Coding Scale 6 Independent with activity with or without an assistive device 5 Patient requires set up or clean up by helper. Patient completes activity by themselves 4 Supervision or touching assist (CGA). [place] provide cues , steadying assist 3 The helper provides less than half the effort to complete the activity 2 The helper provides more than half the effort to complete the activity 1 Dependent. The helper does all the effort to complete an activity 7 Patient refused to complete or attempt activity 9 The patient did not perform the activity before the current illness or injury 88 Not attempted due to Medical conditions or safety concerns Toileting (FIM): 6 Toileting Hygiene (QC): 6 Toilet/Commode Transfer (FIM): 6 Toilet Transfer (QC): 6 Other Treatment Gait to therapy gym with FWW, no LOB noted. Pt completed bilateral UE activity to promote increased strength and activity tolerance needed for ADLs and transfers. Pt completed tabletop peg activity with bilateral UE with 1# weights in place. Pt also completed graded clothespin activity with bilateral UE with 1 # weights in place to increase strength and pinch strength. Arm bike x12 minutes to increase overall strength and activity tolerance for functional tasks. Pt completed task with moderate resistance and steady pace. No rest breaks needed. Pt completed resistance putty activity with bilateral hands to increase strength and manipulation skills. Pt removed small beads from putty with increased time. Pt also completed fine motor task with nuts and bolts to increase coordination/manipulation skills. Pt performed bilateral UE dowel meryl exercises x20 reps for shoulder flexion, forward press, and biceps curls. Brief rest breaks taken between exercises. Pt returned to room, sitting in chair with needs met after session. OT Short Term Goals Short Term Goals 1=Demonstrate adherence to instructed precautions during ADL tasks. 2=Patient will verbalize/demonstrate understanding of assistive devices/ modifications for ADL. 3=Patient will improve strength/tolerance for activity to enable patient to perform ADL's. OT Senior Care Goals Oral And Maxillofacial Surgery Resident Goals Time Frame: May 03, 2017 Eating (FIM): 6 Eating (QC): 6 Groomin Oral Hygiene (QC): 6 Bathing(FIM): 6 Shower/Bathe Self (QC): 6 Upper Body Dressing(FIM): 6 Upper Body Dressing (QC): 6 Lower Body Dressing(FIM): 6 Lower Body Dressing (QC): 6 On/Off Footwear (QC): 6 Toileting(FIM): 6 Toileting Hygiene (QC): 6 Transfers (B,C,W/C) (FIM): 6 Toilet/Commode Transfer(FIM): 6 Toilet/Commode Transfer (QC): 6 Shower Transfer(FIM): 6 Additional Goals: 1-Demonstrate ADL Tasks, 2-Verbalize Understanding, 3- ImproveStrength/[place] 1=Demonstrate adherence to instructed precautions during ADL tasks. 2=Patient will verbalize/demonstrate understanding of assistive devices/ modifications for ADL. 3=Patient will improve strength/tolerance for activity to enable patient to perform ADL's. OT Education/Plan Discharge Recommendations Plan/Recommendations: Continue POC Treatment Plan/Plan of Care Patient would benefit from OT for education, treatment and training to promote independence in ADL's, mobility, safety and/or upper extremity function for ADL' s. Plan of Care: ADL Retraining, Functional Mobility, UE Funct Exercise/Act Treatment Duration: May 03, 2017 Frequency: At least 5 of 7 days/Wk (IRF) Estimated Hrs Per Day: 1.5 hours per day Agreement: Yes Rehab Potential: Good Time/GCodes Start Time: 08:00 Stop Time: 09:30 Total Time Billed (hr/min): 90 Billed Treatment Time 1 visit, ADL(15minutes), EXx5(75minutes) JUSTIN GILL OT Apr 23, 2017 11:56
--- NOTE | 2017-04-23 14:43 | Physical Therapy Daily Note ---
PT Daily Note-Current Subjective Pt sitting in recliner upon arrival. Pt agrees to PT. Pain Numeric Pain Scale: 3 Location Body Site: Abdomen Pain Description: Ache Mental Status Patient Orientation: Person, Place, Time, Situation Attachments: Other-See Comments (Back Brace) Transfers Functional [place] Measure 0=Not Assessed/NA 4=Minimal Assistance 1=Total Assistance 5=Supervision or Setup 2=Maximal Assistance 6=Modified [place] 3=Moderate Assistance 7=Complete IndependenceIRFPAI Quality Coding Scale 6 Independent with activity with or without an assistive device 5 Patient requires set up or clean up by helper. Patient completes activity by themselves 4 Supervision or touching assist (CGA). [place] provide cues , steadying assist 3 The helper provides less than half the effort to complete the activity 2 The helper provides more than half the effort to complete the activity 1 Dependent. The helper does all the effort to complete an activity 7 Patient refused to complete or attempt activity 9 The patient did not perform the activity before the current illness or injury 88 Not attempted due to Medical conditions or safety concerns Scootin Supine to/from Sit: 6 Sit to/from Stand: 6 Sit to Lying (QC): 6 Sit to Stand (QC): 6 Weight Bearing Right Lower Extremity: Right Full Weight Bearing Left Lower Extremity: Left Full Weight Bearing Gait Training Does the Patient Walk?: Yes Distance (FIM): 3=150 ft Distance: 400' Walk 10 feet (QC): 6 Walk 50 ft with 2 Turns(QC): 6 Walk 150 ft (QC): 6 Gait Level of Assist: 6 Gait Persons Needed: 1 Gait Assistive Device: FWW Pt walks with normalized gait, no LOB. Wheelchair Training Does the Pt Use a Wheelchair?: No Treatments Pt transfers from sitting in recliner to standing using FWW at Mod I. Pt ambulates in hallway with one brief rest. Pt returns to room to rest Supine in bed at end of tx with all needs met. Assessment Current Status: Good Progress Pt has improved with activity tolerance and strength of activities including walking with safety. PT Assisted Goals Assisted Goals PT Assisted Goals Time Frame: May 14, 2017 Transfers (B,C,W/C) (FIM): 6 Sit to Lying (QC): 6 Lying-Sitting on Side/Bed(QC): 6 Sit to Stand (QC): 6 Rollin Roll Left to Right (QC): 6 Chair/Lmm-md-Stxld Xfer(QC): 6 Car Transfer (QC): 6 Does the Patient Walk: Yes Gait (FIM): 6 Gait distance (FIM): 3=150 ft Distance: >300' Walk 10 feet (QC): 6 Walk 10ft-Uneven Surface(QC): 6 Walk 50ft with 2 Turns (QC): 6 Walk 150 ft (QC): 6 Gait Level of Assist: 6 Gait Assistive Device: FWW Stairs (FIM): 6 # of Steps: 12 1 Step (curb) (QC): 6 4 Steps (QC): 6 12 Steps (QC): 6 Stairs Level Of Assist: 6 Picking up an Object (QC): 6 PT Plan Problem List Problem List: Activity Tolerance Treatment/Plan Treatment Plan: Continue Plan of Care Treatment Plan: Bed Mobility, Concurrent Therapy, Education, Functional Activity [place], Functional Strength, Group Therapy, Gait, Safety, Therapeutic Exercise, Transfers Treatment Duration: May 14, 2017 Frequency: At least 5 of 7 days/Wk (IRF) Estimated Hrs Per Day: 1.5 hours per day Patient and/or Family Agrees t: Yes Safety Risks/Education Patient Education: Gait Training, Correct Positioning, Safety Issues Teaching Recipient: Patient Teaching Methods: Discussion Response to Teaching: Verbalize Understanding Time/GCodes Time In: 1300 Time Out: 1330 Total Billed Treatment Time: 30 Total Billed Treatment 1, GT x2 (30m) IMAN WHEELER PTA Apr 23, 2017 14:43
[2017-04-23 18:02] VITALS: BP 152/73
[2017-04-24 06:04] VITALS: BP 158/72
[2017-04-24] MEDS: MULTIVIT W/MINERALS TAB (THERAGRAN M) PO SCH (06:28)
[2017-04-24] MEDS: KCL 20 MEQ TAB (K-DUR) PO SCH (06:28)
[2017-04-24] MEDS: CALCIUM CARB + VIT D 600 MG (CALCARB + D) TAB PO SCH (06:28)
[2017-04-24] MEDS: LACTOBACILLUS Acidoph/Bulgar (LACTINEX/FLORANEX) TAB PO SCH ×3 (06:28→16:37)
[2017-04-24] MEDS: OMEGA 3 (FISH OIL) 1000 MG CAP PO SCH ×2 (06:28→16:37)
[2017-04-24] MEDS: RT-ALBUTEROL/IPRATROPIUM 3 ML (DUONEB) VIAL INH SCH (08:09)
--- NOTE | 2017-04-24 08:18 | Physical Therapy Daily Note ---
PT Daily Note-Current Subjective Pt. anxious to DC. Feeling positive. Pain Numeric Pain Scale: 0-No Pain Mental Status Patient Orientation: Normal For Age Transfers Functional [place] Measure 0=Not Assessed/NA 4=Minimal Assistance 1=Total Assistance 5=Supervision or Setup 2=Maximal Assistance 6=Modified [place] 3=Moderate Assistance 7=Complete IndependenceIRFPAI Quality Coding Scale 6 Independent with activity with or without an assistive device 5 Patient requires set up or clean up by helper. Patient completes activity by themselves 4 Supervision or touching assist (CGA). [place] provide cues , steadying assist 3 The helper provides less than half the effort to complete the activity 2 The helper provides more than half the effort to complete the activity 1 Dependent. The helper does all the effort to complete an activity 7 Patient refused to complete or attempt activity 9 The patient did not perform the activity before the current illness or injury 88 Not attempted due to Medical conditions or safety concerns Transfers (B, C, W/C) (FIM): 7 Scootin Rollin Supine to/from Sit: 7 Sit to/from Stand: 7 Bed to/from Chair: 7 Weight Bearing Right Lower Extremity: Right Full Weight Bearing Left Lower Extremity: Left Full Weight Bearing Gait Training Does the Patient Walk?: Yes Gait (FIM): 6 Distance (FIM): 3=150 ft (250x2) Gait Level of Assist: 6 Gait Persons Needed: 0 Gait Assistive Device: FWW up ad minnie Stair Training Stair Training: Handrails/: 1 handrail Stairs (FIM): 6 #of Steps: 12 Stairs: Pattern: Reciprocal Level of Assist: 6 Exercises NuStep Minutes: 10 NuStep Workload: 5 Assessment Current Status: Excellent Progress meets goals PT Prison Goals Wrapper Leaf Inspector Goals PT Wrapper Leaf Inspector Goals Time Frame: May 14, 2017 Transfers (B,C,W/C) (FIM): 6 Sit to Lying (QC): 6 Lying-Sitting on Side/Bed(QC): 6 Sit to Stand (QC): 6 Rollin Roll Left to Right (QC): 6 Chair/Off-wa-Qyvyp Xfer(QC): 6 Car Transfer (QC): 6 Does the Patient Walk: Yes Gait (FIM): 6 Gait distance (FIM): 3=150 ft Distance: >300' Walk 10 feet (QC): 6 Walk 10ft-Uneven Surface(QC): 6 Walk 50ft with 2 Turns (QC): 6 Walk 150 ft (QC): 6 Gait Level of Assist: 6 Gait Assistive Device: FWW Stairs (FIM): 6 # of Steps: 12 1 Step (curb) (QC): 6 4 Steps (QC): 6 12 Steps (QC): 6 Stairs Level Of Assist: 6 Picking up an Object (QC): 6 PT Plan Treatment/Plan Treatment Plan: Continue Plan of Care Treatment Plan: Bed Mobility, Concurrent Therapy, Education, Functional Activity [place], Functional Strength, Group Therapy, Gait, Safety, Therapeutic Exercise, Transfers Treatment Duration: May 14, 2017 Frequency: At least 5 of 7 days/Wk (IRF) Estimated Hrs Per Day: 1.5 hours per day Patient and/or Family Agrees t: Yes Safety Risks/Education Patient Education: Gait Training, Transfer Techniques, Steps, Correct Positioning, Disease Process, Safety Issues Teaching Recipient: Patient Teaching Methods: Demonstration, Discussion Response to Teaching: Verbalize Understanding, Return Demonstration Time/GCodes Time In: 755 Time Out: 815 Total Billed Treatment Time: 20 Total Billed Treatment 1,FA20m G Codes Necessary: RUDY Andrews CRM MARKETING ANALYST Apr 24, 2017 08:18
[2017-04-24] MEDS: FLUoxetine HCL 20 MG (PROzac) CAP PO SCH (08:21)
[2017-04-24] MEDS: GABAPENTIN 300 MG (NEURONTIN) CAP PO SCH (08:21)
[2017-04-24] MEDS: DILTIAZEM 180 MG (CARDIZEM CD) CAP PO SCH (08:22)
[2017-04-24] MEDS: ENOXAPARIN 40 MG/0.4 ML (LOVENOX) SYR SC SCH (11:33)
[2017-04-24 18:00] VITALS: BP 132/70
[2017-04-25 05:49] VITALS: BP 146/87
[2017-04-25] MEDS: LACTOBACILLUS Acidoph/Bulgar (LACTINEX/FLORANEX) TAB PO SCH ×3 (06:11→16:14)
[2017-04-25] MEDS: OMEGA 3 (FISH OIL) 1000 MG CAP PO SCH ×2 (06:11→16:14)
[2017-04-25] MEDS: CALCIUM CARB + VIT D 600 MG (CALCARB + D) TAB PO SCH (06:12)
[2017-04-25] MEDS: KCL 20 MEQ TAB (K-DUR) PO SCH (06:12)
[2017-04-25] MEDS: MULTIVIT W/MINERALS TAB (THERAGRAN M) PO SCH (06:12)
[2017-04-25 08:05] VITALS: BP 122/74
[2017-04-25] MEDS: GABAPENTIN 300 MG (NEURONTIN) CAP PO SCH (08:07)
[2017-04-25] MEDS: DILTIAZEM 180 MG (CARDIZEM CD) CAP PO SCH (08:07)
[2017-04-25] MEDS: FLUoxetine HCL 20 MG (PROzac) CAP PO SCH (08:07)
[2017-04-25] MEDS: ENOXAPARIN 40 MG/0.4 ML (LOVENOX) SYR SC SCH (11:06)
[2017-04-25 17:16] VITALS: BP 117/67
[2017-04-26 05:04] VITALS: BP 111/72
[2017-04-26] MEDS: OMEGA 3 (FISH OIL) 1000 MG CAP PO SCH (06:05)
[2017-04-26] MEDS: KCL 20 MEQ TAB (K-DUR) PO SCH (06:05)
[2017-04-26] MEDS: CALCIUM CARB + VIT D 600 MG (CALCARB + D) TAB PO SCH (06:05)
[2017-04-26] MEDS: MULTIVIT W/MINERALS TAB (THERAGRAN M) PO SCH (06:05)
[2017-04-26] MEDS: LACTOBACILLUS Acidoph/Bulgar (LACTINEX/FLORANEX) TAB PO SCH (06:05)
--- NOTE | 2017-04-26 07:54 | Diagnostic Imaging Report ---
INDICATION: Pneumonia and pleural effusion. PA and lateral views of the chest are obtained. Comparison is made study of 04/16/2017. FINDINGS: Heart size and pulmonary vascularity are within normal limits. There is no evidence of pneumothorax. There is mild right perihilar atelectasis and/or pneumonitis with blunting of left costophrenic sulcus. Overall, there has been a reduction in left pleural fluid and infiltrate in the left lung base. No pneumothorax is seen. IMPRESSION: Mild right perihilar atelectasis and/or pneumonitis with reduction in [id number] left pleural effusion. Dictated by: Dictated on workstation # [id number]
[2017-04-26] MEDS: DILTIAZEM 180 MG (CARDIZEM CD) CAP PO SCH (08:24)
[2017-04-26] MEDS: GABAPENTIN 300 MG (NEURONTIN) CAP PO SCH (08:24)
[2017-04-26] MEDS: FLUoxetine HCL 20 MG (PROzac) CAP PO SCH (08:24)
--- NOTE | 2017-04-26 09:14 | Physical Therapy Daily Note ---
PT Daily Note-Current Subjective Happy to be going home today. Reports she will not have HHC. Reports she feels ready to go home. However, has questions for the wound care nurse and her floor nurse. Mental Status Patient Orientation: Person, Place, Time, Situation Transfers Functional [place] Measure 0=Not Assessed/NA 4=Minimal Assistance 1=Total Assistance 5=Supervision or Setup 2=Maximal Assistance 6=Modified [place] 3=Moderate Assistance 7=Complete IndependenceIRFPAI Quality Coding Scale 6 Independent with activity with or without an assistive device 5 Patient requires set up or clean up by helper. Patient completes activity by themselves 4 Supervision or touching assist (CGA). [place] provide cues , steadying assist 3 The helper provides less than half the effort to complete the activity 2 The helper provides more than half the effort to complete the activity 1 Dependent. The helper does all the effort to complete an activity 7 Patient refused to complete or attempt activity 9 The patient did not perform the activity before the current illness or injury 88 Not attempted due to Medical conditions or safety concerns Transfers (B, C, W/C) (FIM): 7 Roll Left to Right (QC): 6 Supine to/from Sit: 7 Sit to/from Stand: 7 Sit to Lying (QC): 6 Sit to Stand (QC): 6 Chair/Rfk-af-Ayvid Xfer(QC): 6 Car Transfer (QC): 6 Pt is indep with all functional transfers. Safe with transfers with no concern at this time. Weight Bearing Right Lower Extremity: Right Full Weight Bearing Left Lower Extremity: Left Full Weight Bearing Gait Training Does the Patient Walk?: Yes Gait (FIM): 6 Distance (FIM): 3=150 ft Walk 10 feet (QC): 6 Walk 50 ft with 2 Turns(QC): 6 Walk 150 ft (QC): 6 Walking 10ft/uneven surface-QC: 6 Gait Assistive Device: FWW Pt walks around her room and in/out of bathroom; down the wyatt into the gym all mod indep with ability to stop, go , turn, etc all safely and without noted LOB. Wheelchair Training Does the Pt Use a Wheelchair?: No Stair Training Stair Training: Handrails/: 2 handrails Stairs (FIM): 6 #of Steps: 12 1 Step (curb) (QC): 6 4 Steps (QC): 6 12 Steps (QC): 6 Stairs: Pattern: Reciprocal Balance Picking up an Object (QC): 6 (using a inverform machine operator device; did not lean forward to do so due to back precautions. ) Assessment Current Status: Excellent Progress Excellent functional gains with mobility and she is indep to mod indep with all mobility. Meeting PT goals. PT Cosmetic Sales Assistant Goals [facility] Goals PT Cosmetic Sales Assistant Goals Time Frame: May 14, 2017 Transfers (B,C,W/C) (FIM): 6 (exceeded) Sit to Lying (QC): 6 (met) Lying-Sitting on Side/Bed(QC): 6 (met) Sit to Stand (QC): 6 (met) Rollin Roll Left to Right (QC): 6 (met) Chair/Pvh-ow-Yge[place] Xfer(QC): 6 (met) Car Transfer (QC): 6 (met) Does the Patient Walk: Yes Gait (FIM): 6 (met) Gait distance (FIM): 3=150 ft Distance: >300' Walk 10 feet (QC): 6 (met) Walk 10ft-Uneven Surface(QC): 6 (met) Walk 50ft with 2 Turns (QC): 6 (met) Walk 150 ft (QC): 6 (met) Gait Level of Assist: 6 Gait Assistive Device: FWW Stairs (FIM): 6 (met) # of Steps: 12 1 Step (curb) (QC): 6 (met) 4 Steps (QC): 6 (met) 12 Steps (QC): 6 (met) Stairs Level Of Assist: 6 Picking up an Object (QC): 6 (met) PT Plan Treatment/Plan Treatment Plan: Discontinue PT, goals met Treatment Plan: Bed Mobility, Concurrent Therapy, Education, Functional Activity [place], Functional Strength, Group Therapy, Gait, Safety, Therapeutic Exercise, Transfers Treatment Duration: May 14, 2017 Frequency: At least 5 of 7 days/Wk (IRF) Estimated Hrs Per Day: 1.5 hours per day Patient and/or Family Agrees t: Yes Safety Risks/Education Patient Education: Safety Issues Teaching Recipient: Patient, Significant Other Teaching Methods: Discussion Response to Teaching: Verbalize Understanding Discharge Recommendations Plan DC PT today Time/GCodes Time In: 820 Time Out: 837 Total Billed Treatment Time: 17 Total Billed Treatment visit FA 17 ITALIA RUTHERFORD PT Apr 26, 2017 09:14
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
--- NOTE | 2017-04-26 09:52 | Therapy Team Discharge Summary ---
Therapy Discharge Summary Discharge Recommendations Date of Discharge April 26, 2017 Therapy D/C Recommendations: Home w/ Family Support Occupational Therapy Pt was seen for skilled OT to increase her independence with basic self care to allow her to safely return to her home to live independently with . On admission she was modified indepe with eating and required SBA for other ADLs, including grooming, toileting, and dressing. By discharge she was indep with eating and modified indep with all other basic ADLs. Equipment used included tall toilet, grab bars, FWW, shower bench. Pt has all needed euqipment except grab bars which she and her will get. No continued OT recommended. DC OT. See tx plan for goals met. Decreased Activ Tolerance, Dependent Transfers, Impaired I ADL's, Impaired Self- Care Skills PT Senior Research Executive Goals Care Home Goals PT Care Home Goals Time Frame: May 14, 2017 Transfers (B,C,W/C) (FIM): 6 (exceeded) Roll Left to Right (QC): 6 (met) Sit to Lying (QC): 6 (met) Lying-Sitting on Side/Bed(QC): 6 (met) Sit to Stand (QC): 6 (met) Chair/Uhm-zz-Uyfva Xfer(QC): 6 (met) Car Transfer (QC): 6 (met) Does the Patient Walk: Yes Gait (FIM): 6 (met) Gait distance (FIM): 3=150 ft Distance: >300' Walk 10 feet (QC): 6 (met) Walk 10ft-Uneven Surface(QC): 6 (met) Walk 50ft with 2 Turns (QC): 6 (met) Walk 150 ft (QC): 6 (met) Gait Level of Assist: 6 Gait Assistive Device: FWW Stairs (FIM): 6 (met) # of Steps: 12 1 Step (curb) (QC): 6 (met) 4 Steps (QC): 6 (met) 12 Steps (QC): 6 (met) Stairs Level Of Assist: 6 Picking up an Object (QC): 6 (met) OT Senior Research Executive Goals Care Home Goals Time Frame: May 03, 2017 Eating (FIM): 6 (met 18-17) Eating (QC): 6 (met -18-17) Oral Hygiene (QC): 6 (met 18-17) Grooming(FIM): 6 (met 04-26-17) Bathing(FIM): 6 (met 04-26-17) Shower/Bathe Self (QC): 6 (met 04-26-17) Upper Body Dressing(FIM): 6 (met 04-26-17) Upper Body Dressing (QC): 6 (met 04-26-17) Lower Body Dressing(FIM): 6 (met 04-26-17) Lower Body Dressing (QC): 6 (met 04-26-17) On/Off Footwear (QC): 6 (met 04-26-17) Toileting(FIM): 6 (met 04-26-17) Toileting Hygiene (QC): 6 (met 04-26-17) Transfers (B,C,W/C) (FIM): 6 (met 04-26-17) Toilet/Commode Transfer(FIM): 6 (met 04-26-17) Toilet/Commode Transfer (QC): 6 (met 04-26-17) Shower Transfer(FIM): 6 (met 04-26-17) Additional Goals: 1-Demonstrate ADL Tasks, 2-Verbalize Understanding, 3- ImproveStrength/[place] 1=Demonstrate adherence to instructed precautions during ADL tasks. 2=Patient will verbalize/demonstrate understanding of assistive devices/ modifications for ADL. 3=Patient will improve strength/tolerance for activity to enable patient to perform ADL's. KENA NAVA OT Apr 26, 2017 09:52
[2017-04-26 10:29] VITALS: BP 111/72
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
== END 2017-04-26 10:45 | disposition home or self-care (01) | DRG 194 ==
PROVIDERS: ADMIT Internal Medicine; ATTEND Physical Medicine & Rehabilitation
DX: J18.9 Pneumonia, unspecified organism (principal); J90 Pleural effusion, not elsewhere classified; S32.030D Wedge compression fracture of third lumbar vertebra, subsequent encounter for fracture with routine healing; S22.49XD Multiple fractures of ribs, unspecified side, subsequent encounter for fracture with routine healing; Z48.815 Encounter for surgical aftercare following surgery on the digestive system; I48.91 Unspecified atrial fibrillation; C18.9 Malignant neoplasm of colon, unspecified; F17.210 Nicotine dependence, cigarettes, uncomplicated; F41.1 Generalized anxiety disorder; D64.9 Anemia, unspecified
CPT/HCPCS: 36415; 71020; 80048; 85007; 85027; 94640; 94760

== ENCOUNTER → 2017-04-28 | Outpatient (CLI) | payer MEDICARE | LOC: WOUNDCARE 12:18 | PROVIDERS: ATTEND Surgery | DX: L98.492 Non-pressure chronic ulcer of skin of other sites with fat layer exposed (principal); T81.31XA Disruption of external operation (surgical) wound, not elsewhere classified, initial encounter | CPT/HCPCS: 11042 ==

== ENCOUNTER → 2017-05-05 | Outpatient (CLI) | payer MEDICARE | LOC: WOUNDCARE 12:35 | PROVIDERS: ATTEND Surgery | DX: L98.492 Non-pressure chronic ulcer of skin of other sites with fat layer exposed (principal); T81.31XA Disruption of external operation (surgical) wound, not elsewhere classified, initial encounter | CPT/HCPCS: 99212 ==

== ENCOUNTER → 2017-07-12 | Outpatient (CLI) | payer OTHER, BC ==
[~2017-07-12] MED LIST changes: +RT-ALBUTEROL SULF 2.5 MG/3 ML PRE-MIX VIAL INH ONE
== END ==
LOC: RT 09:22
PROVIDERS: ATTEND Nurse Practitioner Family
DX: R06.02 Shortness of breath (principal); J90 Pleural effusion, not elsewhere classified; J30.9 Allergic rhinitis, unspecified; Z87.891 Personal history of nicotine dependence
CPT/HCPCS: 94060; 94726; 94729

== ENCOUNTER 2017-08-02 12:53 | Outpatient (RCR) | payer OTHER ==
[~2017-08-02 12:53] MED LIST changes: -RT-ALBUTEROL SULF 2.5 MG/3 ML PRE-MIX VIAL INH ONE
== END 2017-08-03 08:45 | disposition home or self-care (01) ==
PROVIDERS: ATTEND Neurological Surgery
DX: M48.56XA Collapsed vertebra, not elsewhere classified, lumbar region, initial encounter for fracture (principal)

== ENCOUNTER → 2021-01-22 | Outpatient (RCR) | payer OTHER, MEDICARE ==
[~2021-01-22] MED LIST changes: -CALC-6 PO; +CALC1TAB84 PO; -OXYC-471 PO; +OXYC1TAB11 PO
== END | disposition home or self-care (01) ==
LOC: CR3 12-23 13:00
PROVIDERS: ATTEND Family Medicine
DX: Z29.8 Encounter for other specified prophylactic measures (principal)

== ENCOUNTER 2021-02-21 13:32 | Outpatient (RCR) | payer OTHER, MEDICARE | END 2021-02-23 | disposition home or self-care (01) | LOC: CR3 13:32 | PROVIDERS: ATTEND Family Medicine | DX: Z29.8 Encounter for other specified prophylactic measures (principal) ==

== ENCOUNTER 2021-03-24 13:02 | Outpatient (RCR) | payer OTHER, MEDICARE | END 2021-03-26 | disposition home or self-care (01) | LOC: CR3 13:02 | PROVIDERS: ATTEND Family Medicine | DX: Z29.8 Encounter for other specified prophylactic measures (principal) ==

== ENCOUNTER → 2021-04-30 | Outpatient (RCR) | payer OTHER, MEDICARE | LOC: CR3 03-31 13:21 | PROVIDERS: ATTEND Family Medicine | DX: Z29.8 Encounter for other specified prophylactic measures (principal) ==

== ENCOUNTER 2021-06-30 13:06 | Outpatient (RCR) | payer OTHER, MEDICARE | END 2021-07-09 | disposition home or self-care (01) | LOC: CR3 13:06 | PROVIDERS: ATTEND Family Medicine | DX: Z29.8 Encounter for other specified prophylactic measures (principal) ==

== ENCOUNTER 2022-07-24 21:04 | Emergency (ER) | payer MEDICARE ==
[~2022-07-24] VITALS: Ht 162.6 cm; Wt 81.6 kg
[2022-07-24] MEDS ORDERED: ONDANSETRON 4 MG/2 ML (SDV) Z0FRAN IVP ONE (22:00)
[2022-07-24] MEDS ORDERED: morphine INJ 4 MG/ML 1 ML (VIAL/SYRINGE) IVP ONE (22:00)
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
[2022-07-24 22:08] LABS: BASOPHILS % (AUTO) 0 % (0-10); EOSINOPHILS # (AUTO) 0.2 10^3/uL (0.0-0.3); EOSINOPHILS % (AUTO) 2 % (0-10); HEMATOCRIT 38 % (35-52); HEMOGLOBIN 13.4 g/dL (11.5-16.0); LYMPHOCYTES # (AUTO) 1.5 10^3/uL (1.0-4.0); LYMPHOCYTES % (AUTO) 18 % (12-44); MEAN CORPUSCULAR HEMOGLOBIN 30 pg (25-34); MEAN CORPUSCULAR HGB CONC 35 g/dL (32-36); MEAN CORPUSCULAR VOLUME 85 fL (80-99); MEAN PLATELET VOLUME 9.9 fL (9.0-12.2); MONOCYTES # (AUTO) 0.7 10^3/uL (0.0-1.0); MONOCYTES % (AUTO) 9 % (0-12); NEUTROPHILS % (AUTO) 71 % (42-75); PLATELET COUNT 262 10^3/uL (130-400); WHITE BLOOD COUNT 8.4 10^3/uL (4.3-11.0)
[2022-07-24 22:21] LABS: ALBUMIN 4.1 GM/DL (3.2-4.5); BILIRUBIN,TOTAL 1.1 MG/DL (0.1-1.0); CALCIUM 9.4 MG/DL (8.5-10.1); CREATININE SERUM 0.82 MG/DL (0.60-1.30); TOTAL PROTEIN 7.5 GM/DL (6.4-8.2)
[2022-07-24] MEDS ORDERED: morphine INJ 10 MG/ML 1ML (SYR OR VIAL) IVP STA (22:22)
[2022-07-24] MEDS ORDERED: NS IV 1000 ML 1,000 ML IV SCH ×2 (22:30→23:30)
[2022-07-24 22:44] LABS: POTASSIUM 2.5 MMOL/L (3.6-5.0)
[2022-07-24] MEDS ORDERED: POTASSIUM CL 10MEQ/50ML IVPB 50 ML IV ONE (23:15)
[2022-07-24] MEDS ORDERED: HYDROmorphone 2 MG/ML VIAL (DILAUDID) IV ONE (23:15)
[2022-07-25 01:11] VITALS: BP 165/68
--- NOTE | 2022-07-25 07:57 | Diagnostic Imaging Report ---
HISTORY: Right shoulder pain TECHNIQUE: 3 views of the right shoulder COMPARISON: None FINDINGS: There is a reverse total arthroplasty of the right shoulder. Alignment is normal. There are degenerative changes in the right acromioclavicular joint. There is mild prominence of the vasculature in the central chest, thought to be due to low lung volume. IMPRESSION: 1. Right shoulder arthroplasty with no hardware complication or acute osseous abnormality seen. Dictated by: Dictated on workstation # [id number]
== END 2022-07-25 01:25 | disposition short-term general hospital (02) ==
LOC: EDUNIT# 21:04 → ER 21:07
DX: E87.6 Hypokalemia (principal); G89.18 Other acute postprocedural pain; M25.511 Pain in right shoulder; Z96.611 Presence of right artificial shoulder joint; R11.2 Nausea with vomiting, unspecified; R73.9 Hyperglycemia, unspecified; E87.8 Other disorders of electrolyte and fluid balance, not elsewhere classified
CPT/HCPCS: 36415; 73030; 80053; 83735; 85025

== ENCOUNTER 2022-07-27 02:04 | Emergency (ER) | payer MEDICARE ==
[~2022-07-27] VITALS: Ht 165 cm; Wt 74.0 kg
[2022-07-27 02:46] LABS: BILIRUBIN,URINE NEGATIVE (NEGATIVE); CLARITY,URINE CLEAR; COLOR,URINE DARK YELLOW; GLUCOSE, URINE (UA) NEGATIVE (NEGATIVE); KETONES,URINE NEGATIVE (NEGATIVE); LEUKOCYTE ESTERASE ,URINE 1+ (NEGATIVE); NITRITE,URINE NEGATIVE (NEGATIVE); PROTEIN,URINE TRACE (NEGATIVE)
[2022-07-27 02:59] LABS: BACTERIA,URINE NEGATIVE /HPF; HYALINE CASTS, URINE RARE /LPF
[2022-07-27] MEDS ORDERED: FLUO10TA28 PO (03:47)
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
[2022-07-27 04:00] VITALS: BP 156/85
== END 2022-07-27 04:05 | disposition home or self-care (01) ==
LOC: EDUNIT# 02:04 → ER 02:06
DX: F51.4 Sleep terrors [night terrors] (principal); Z79.899 Other long term (current) drug therapy; Z79.83 Long term (current) use of bisphosphonates; Z28.310 Unvaccinated for COVID-19
CPT/HCPCS: 81000; 87077; 87088; 87186; 99282